=== PATIENT | male | born 1935 | race Caucasian/White ===

== ENCOUNTER → 2016-06-06 | Outpatient (CLI) | payer BC ==
[~2016-06-06] MED LIST: ALLO300T2 PO; AMIO200T4 PO; ATOR-22 PO; AZEL0.15 NAE; CLR10 PO; DOCU-94 PO; DUTA1CAP3 PO; FLUT0.15 NAE; FRS/40 PO; LISI-729 PO; MAGN400T6 PO; METO25TA3 PO; METR1GEL3 EXT; MOME6000; MONT1TAB5 PO; MULTCHW PO; PANT40TA PO; POTA10CA28 PO; TAMS0.4C38 PO; WARF2.5T8 PO
[2016-06-06 12:08] LABS: BASO % 0.2 %; BASO ABS # 0.01 K/uL (0-0.2); COMPLETE YES; EOS % 2.1 %; HEMATOCRIT 42.5 % (42-52); IG% 0.2 %; LYMPH % 31.7 %; LYMPH ABS # 1.67 K/uL (1.2-3.4); MEAN CELL VOLUME 87.6 fL (80-100); MEAN CORPUSCULAR HEMOGLOBIN 30.3 pg (25-34); MEAN CORPUSCULAR HGB CONC 34.6 g/dl (32-36); MEAN PLATELET VOLUME 10.6 fL (7.4-10.4); MONO % 10.1 %; NEUT % 55.7 %; PLATELET COUNT 166 K/uL (130-400); RED BLOOD COUNT 4.85 M/uL (4.7-6.1); WHITE BLOOD COUNT 5.27 K/uL (4.8-10.8)
[2016-06-06 12:43] LABS: BLOOD UREA NITROGEN 18 mg/dl (7-18); GLUCOSE 93 mg/dl (70-99)
[2016-06-06 12:44] LABS: BUN/CREATININE RATIO 13.8 (10-20); CALCIUM 9.3 mg/dl (8.5-10.1); CARBON DIOXIDE 27 mmol/L (21-32); CHLORIDE 107 mmol/L (98-107); POTASSIUM 3.4 mmol/L (3.5-5.1); SODIUM 143 mmol/L (136-145)
== END | disposition home or self-care (01) ==
LOC: C.LAB1850 10:48
PROVIDERS: ATTEND Internal Medicine
DX: I50.22 Chronic systolic (congestive) heart failure (principal)

== ENCOUNTER 2016-09-05 06:33 | Observation (INO) | payer BC ==
[2016-08-27 12:04] LABS: MEAN CELL VOLUME 90.3 fL (80-100); MEAN CORPUSCULAR HEMOGLOBIN 31.3 pg (25-34); MEAN CORPUSCULAR HGB CONC 34.6 g/dl (32-36); MEAN PLATELET VOLUME 10.5 fL (7.4-10.4); PLATELET COUNT 157 K/uL (130-400); RED BLOOD COUNT 4.54 M/uL (4.7-6.1); WHITE BLOOD COUNT 5.79 K/uL (4.8-10.8)
[2016-08-27 12:21] LABS: BLOOD UREA NITROGEN 16 mg/dl (7-18); BUN/CREATININE RATIO 11.7 (10-20); CALCIUM 8.6 mg/dl (8.5-10.1); CARBON DIOXIDE 29 mmol/L (21-32); CHLORIDE 108 mmol/L (98-107); GLUCOSE 84 mg/dl (70-99); POTASSIUM 3.3 mmol/L (3.5-5.1); SODIUM 144 mmol/L (136-145)
[2016-08-27 12:23] LABS: PARTIAL THROMBOPLASTIN RATIO 1.2; PROTHROMBIN TIME (PATIENT) 21.6 SECONDS (9.0-12.0)
[~2016-09-05] VITALS: Ht 175.3 cm; Wt 86.3 kg
[2016-09-05] VITALS (10 sets, daily range): BP systolic 116–154; BP diastolic 61–92; PULSE 50–70; TEMP 36.3–36.8; O2SAT 94–98; Ht 175.3 cm; Wt 86.3 kg
--- NOTE | 2016-09-05 07:26 | History & Physical Bridge Note ---
H&P Re-Evaluation Bridge Note: I have examined the patient, reviewed the History & Physical and in the interval since the performance of the History & Physical I have noted the following changes of clinical significance: INR 2.1 yesterday. No other changes
[2016-09-05] MEDS ORDERED: KEFZOL SPECIAL PROCEDURE STOCK 1 GM ADDVIAL IV ONE (07:27)
--- NOTE | 2016-09-05 07:27 | Procedure Note ---
Pre-Mod Sedation Assessment General Date of Moderate Sedation: Sep 05, 2016. Review Cardiovascular: + irregularly irregular Airway Class: II Pre-Sedation Airway Assessment Oral Cavity: Dentures Able to Visualize Vocal Cords: No Short Thick Neck: No Hx of Sleep Apnea: No Smoking Status: Former Smoker Mallampati Classification: Class II ASA Classification: Class II Procedure Planning Contraindications-for Mod Sed: None Yes Notes The planned sedation has been discussed with the patient and consent obtained. I have identified the patient, determined the appropriateness of sedation and have assessed the patient immediately prior to the procedure. All medicine(s) and interventions are by my order.
[2016-09-05] MEDS ORDERED: BUPIVACAINE 0.5 % 5 MG/1 ML MPF 30ML VIAL ONE (07:46)
[2016-09-05] MEDS ORDERED: LIDOCAINE HCL 1% 20 ML VIAL ONE (07:46)
[2016-09-05] MEDS ORDERED: BACITRACIN 50000 UNIT VIAL ONE (07:46)
[2016-09-05] MEDS ORDERED: MIDAZOLAM HCL 5 MG/ML 1 ML VIAL ONE (08:22)
[2016-09-05] MEDS ORDERED: FENTANYL CITRATE INJ 50 MCG/1 ML 2 ML VIAL ONE (08:23)
[2016-09-05] MEDS ORDERED: BACITRACIN OINT 0.9 GM PKT ONE (09:05)
[2016-09-05] MEDS ORDERED: OXYCODONE/ACETAMINOPHEN 5-325 TAB PO PRN (09:15)
--- NOTE | 2016-09-05 09:15 | Cardiology Procedure Brief Nt ---
Preliminary Cardiology Note Procedure Date Sep 05, 2016. Pre-Procedure Diagnosis CHF Post-Procedure Diagnosis same Procedure(s) Performed IMplant single chamber ICD [employer] Roddy Can Closing Machine Tender(s) none Estimated Blood Loss 10cc Medication(s) Fentanyl, versed Preliminary Findings Successful implant of single chamber ICD Recommendations routine post-op Specimens none Complication(s) None Disposition
[2016-09-05] MEDS ORDERED: IV FLUIDS COMPLETED PRN (09:30)
--- NOTE | 2016-09-05 12:36 | OPERATIVE REPORT ---
DATE OF OPERATION: 09/05/2016 IMPLANTABLE CARDIOVERTER-DEFIBRILLATOR IMPLANTATION REPORT DATE OF SERVICE: 09/05/2016. PROCEDURE PERFORMED: Implantation of single chamber implantable cardioverter-defibrillator. STAFF LUMBER INSPECTOR: Dr. Romero Pereyra. INDICATION: Mr. Alec Grande is a 80-year-old gentleman with a history of ischemic cardiomyopathy. He has a documented ejection fraction less than 35% despite optimal medical therapy. He continues to have Class 2 heart failure symptoms and chronic atrial fibrillation. The patient has an anticipated longevity greater than 1 year and therefore was felt to be a good candidate for implantation of ICD as primary prevention against sudden cardiac . PROCEDURE IN DETAIL: The patient was informed of the risks, benefits, and alternatives to the intended procedure and he agreed to proceed. He was taken to the electrophysiology suite in a fasting state. Preoperative antibiotic had been administered. The patient was monitored electrocardiographic throughout today's procedure and conscious sedation was administered per protocol between 0829 and 0900 hours. The left deltopectoral area was prepped and draped in usual sterile fashion. This area was anesthetized using subcutaneous administration of xylocaine and Marcaine solution. An incision was made dissecting down to the prepectoral fascia using sharp dissection. Electrocautery was also employed for dissection as well as for hemostasis. The pocket was fashioned in the tissues above the pectoral muscles. Subsequent to this the left axillary vein was accessed once using modified Seldinger technique. A sheath was placed over guidewire at this site and used to facilitate passage of the YUE lead to the right ventricular apex under fluoroscopic guidance. Adequate sensing threshold parameters were obtained prior to active fixation of this lead to the endocardial surface. The proximal portion of the lead was then sutured to the prepectoral fascia using nonabsorbable suture. The devised pocket was irrigated with an antibiotic solution. The lead was the attached to the device. The device and lead were then placed in the pocket. The pocket was closed with 3 layer of absorbable sutures. Steri-Strips and sterile dressing were applied. The device was tested noninvasively prior to conclusion of the procedure. The patient tolerated the procedure well. There were no immediate complications. EQUIPMENT USED: 1. New pulse generally spindraw operator MedDropThought, model #XFRD7S1, serial #[id number]. 2. Right ventricular lead spindraw operator Medtronic model #6947M, serial #[id number]. MEASURE DATA: One right ventricular lead, R-waves measured 7.5 millivolts, pacing threshold was 0.75 volts at 0.4 milliseconds with a pacing impedance of 558 ohms. IMPRESSION: Successful implantation of single chamber Implantable cardioverter-defibrillator. PLAN: The patient will be monitored in the [place] overnight. Additional dose of antibiotics will be administered. Chest x-ray and reinterrogation of the device will be performed in the morning. Should all parameters be adequate and the patient be feeling well will be considered for discharge at that time. I attest to the content of the Intraoperative Record and any orders documented therein. Any exceptions are noted below. MTDD
[2016-09-05] MEDS ORDERED: WARFARIN SOD 2.5 MG TAB PO SCH (16:00)
[2016-09-05] MEDS: ACETAMINOPHEN 325 MG TAB PO PRN ×2 (16:26→20:15)
[2016-09-05] MEDS: CEFAZOLIN IV 2,000 MG in DEXTROSE 5% 50ML 50 ML IV SCH ×2 (16:27→23:58)
[2016-09-05] MEDS: POTASSIUM CHLORIDE 20 MEQ TABCR PO SCH (20:16)
[2016-09-05] MEDS ORDERED: TAMSULOSIN HCL 0.4 MG CAP PO SCH (21:00)
[2016-09-05] MEDS ORDERED: MONTELUKAST SOD 10 MG TAB PO SCH (21:00)
[2016-09-06 02:55] VITALS: BP 150/92; PULSE 57; TEMP 36.4; O2SAT 95
[2016-09-06] MEDS: ACETAMINOPHEN 325 MG TAB PO PRN (03:12)
[2016-09-06 05:54] LABS: INR 2.1 (0.9-1.1); PROTHROMBIN TIME (PATIENT) 23.6 SECONDS (9.0-12.0)
--- NOTE | 2016-09-06 06:56 | DIAGNOSTIC IMAGING REPORT ---
CHEST 2 VIEWS ROUTINE CLINICAL HISTORY: EXACT TIME ORDERED Evaluate for pneumothorax and lead placement COMPARISON STUDY: 04/20/2016 FINDINGS: Interval placement of a unipolar cardiac pacemaker/defibrillator. Good lead position. No evidence of pneumothorax. Lungs are clear. IMPRESSION: Good position status post unipolar cardiac pacemaker placement. No evidence pneumothorax. Electronically signed by: Carlos Alberto Uribe M.D. 09/06/2016 6:54 AM Dictated Date/Time: 09/06/2016 6:53 AM
--- NOTE | 2016-09-06 07:37 | Discharge Instructions ---
Discharge Instructions Date of Service Sep 06, 2016. Admission Reason for Admission: Non Ischemic Cardiomyopathy, A Fib Discharge Discharge Diagnosis / Problem: ICD implant Discharge Goals Goal(s): Improve disease control, Therapeutic intervention Activity Recommendations Activity Limitations: resume your previous activity Lifting Limitations: none Exercise/Sports Limitations: none May Resume Sexual Activity: when tolerated Shower/Bathe: keep incision dry Driving or Machine Use: no limitations Keep wound dry and steri-strips in place until f/u next week. No lifting left arm above shoulder or behind neck for 6 weeks . Instructions / Follow-Up Instructions / Follow-Up f/u [facility]iology clinic in 1 week for a wound check Current Hospital Diet Patient's current hospital diet: Low Sodium Diet (2gm Na) Discharge Diet Recommended Diet: Low Sodium Diet (2gm Na) Fluid Restriction: None Procedures Procedures Performed: ICD implant Pending Studies Studies pending at discharge: no Medical Emergencies . Who to Call and When: Medical Emergencies: If at any time you feel your situation is an emergency, please call 911 immediately. . Non-Emergent Contact Non-Emergency issues call your: Remedial Project Manager Call Non-Emergent contact if: you have a fever, your pain is worsening, wound has increased drainage, wound has increased redness, wound has increased pain . . "Provider Documentation" section prepared by Michael Pereyra. VTE Core Measure Inpt VTE Proph given/why not?: Warfarin (Coumadin)
--- NOTE | 2016-09-06 07:39 | Procedure Note ---
Post-Mod Sedation Assessment General Date of Moderate Sedation Sep 06, 2016. Vital Signs: Vital Signs Past 12 Hours Date Time Temp Pulse Resp B/P Pulse Ox O2 Delivery O2 Flow Rate FiO2 09/06/16 04:00 Room Air 09/06/16 02:55 36.4 57 18 150/92 95 Room Air 09/05/16 23:59 Room Air 09/05/16 23:20 36.8 53 16 127/82 95 Room Air 09/05/16 20:00 Room Air Review - Discharge Criteria Vital Signs Stable: Yes Alert/Oriented/Conversant: Yes Returned to Baseline Mental St: Yes Nausea Absent/Minimal: Yes Pain/Discomfort/Absent/Minimal: Yes Normal/Baseline Respirations: Yes Active Bleeding?: No Pt Received D/C Instructions: Yes Prescriptions Given: None Specific Proced. D/C Criteria Voided Prior To Discharge: Yes Discharged Patients Adult Escort/Transportation: Yes
[2016-09-06 08:01] VITALS: BP 139/72; PULSE 66; TEMP 36.5; O2SAT 97
[2016-09-06] MEDS: CEFAZOLIN IV 2,000 MG in DEXTROSE 5% 50ML 50 ML IV SCH (08:26)
[2016-09-06] MEDS: POTASSIUM CHLORIDE 20 MEQ TABCR PO SCH (08:26)
[2016-09-06] MEDS ORDERED: AMIODARONE 200 MG TAB PO SCH (09:00)
[2016-09-06] MEDS ORDERED: MAGNESIUM OXIDE 400 MG TAB PO SCH (09:00)
[2016-09-06] MEDS ORDERED: ATORVASTATIN 20 MG TAB PO SCH (09:00)
[2016-09-06] MEDS ORDERED: PANTOprazole SOD 40 MG TAB PO SCH (09:00)
[2016-09-06] MEDS ORDERED: FUROSEMIDE 40 MG TAB PO SCH (09:00)
[2016-09-06] MEDS ORDERED: LISINOPRIL 5 MG TAB PO SCH (09:00)
[2016-09-06] MEDS ORDERED: ALLOPURINOL 300 MG TAB PO SCH (09:00)
[2016-09-06] MEDS ORDERED: METOPROLOL SUCC 25MG EXT REL TAB PO SCH (09:00)
[2016-09-06 09:05] VITALS: BP 139/72; PULSE 66; TEMP 36.5; O2SAT 97
--- NOTE | 2016-09-06 11:19 | Discharge Summary ---
Discharge Summary Admission Date: Sep 05, 2016 at 09:13 Discharge Date: Sep 06, 2016 Discharge Disposition: Home Primary Diagnosis: CHF Secondary Diagnoses/Problems: Medical Problems: (1) CHF (congestive heart failure) Status: Acute (2) Exertional dyspnea Status: Acute (3) Hypokalemia Status: Acute Procedures: Medtronic ICD implant Discharge Instructions Last Recorded Wt (Kilograms): 86.300 Activity Recommendations: limitations as noted below, shower/bathe limit Return to School/Work: no limitations Diet At Discharge: resume previous diet, low sodium Allergies: Coded Allergies: Codeine (Verified Adverse Reaction, Unknown, N/V, 04/20/16) Home Health Services: none Additional Instructions: ACTIVITY RECOMMENDATIONS: * Do not raise affected arm over head for 2 weeks. SPECIAL CARE INSTRUCTIONS: * If bleeding occurs, apply direct pressure to area for 5 minutes. * Call your doctor if you have severe pain, fever, drainage or bleeding at site. * Keep dressing on and dry for 48 hours then remove. * Keep any scheduled doctor's appointment. * Implant Card - hand held device with website information given. SKIN IRRITATION: * You may experience some redness and/or swelling in the area where radiation was administered. If any skin irritation occurs, please contact your family physician. FOLLOW UP VISIT: Keep any scheduled doctor appointments. Special Care: Call your doctor if: * Temperature above 101 degrees * Pain not relieved by pain medicine ordered * There is increased drainage or redness from any incision * You have any unanswered questions or concerns. Avoid all tobacco products. If you need help to stop smoking, call [place]'s FREE QUITLINE at . This is a free call. Admission HPI Cardiomyopathy Admission Physical Exam Incision with a moderate amount of ecchymosis and perhaps some mild swelling. Normal device function. Chest x-ray did not demonstrate any evidence of pneumothorax. There was stable lead position. Head: normocephalic Lungs: Respiratory effort: no dyspnea Cardiovascular: Heart Auscultation: no rubs, irregular rate rhythm Hospital Course Patient admitted and underwent implantation of single-chamber Medtronic ICD on 09/05/2016. Uncomplicated hospital stay with normal device function the following day. No complications Total time spent on discharge = This includes examination of the patient, discharge planning, medication reconciliation, and communication with other providers. 30 minutes
== END 2016-09-06 10:35 | disposition home or self-care (01) ==
LOC: C.ACU 06:33 → C.2E 09:13
PROVIDERS: ADMIT Internal Medicine Clinical Cardiac Electrophysiology; ATTEND Internal Medicine Clinical Cardiac Electrophysiology
DX: I50.9 Heart failure, unspecified (principal); E87.6 Hypokalemia; I25.5 Ischemic cardiomyopathy; I48.91 Unspecified atrial fibrillation; I34.0 Nonrheumatic mitral (valve) insufficiency; N40.0 Benign prostatic hyperplasia without lower urinary tract symptoms; G47.31 Primary central sleep apnea; F32.9 Major depressive disorder, single episode, unspecified; E78.00 Pure hypercholesterolemia, unspecified; Z87.440 Personal history of urinary (tract) infections; Z84.1 Family history of disorders of kidney and ureter; Z83.3 Family history of diabetes mellitus; Z82.49 Family history of ischemic heart disease and other diseases of the circulatory system

== ENCOUNTER → 2016-11-12 | Outpatient (CLI) | payer BC ==
[~2016-11-12] VITALS: Ht 175.3 cm; Wt 86.9 kg
[2016-11-12 14:33] VITALS: BP 119/62; PULSE 38; Ht 175.3 cm; Wt 86.9 kg
== END | disposition home or self-care (01) ==
LOC: C.NEUR 13:49
PROVIDERS: ATTEND Physician Assistant Medical
DX: G47.30 Sleep apnea, unspecified (principal); I50.9 Heart failure, unspecified; I42.8 Other cardiomyopathies

== ENCOUNTER → 2016-12-06 | Outpatient (CLI) | payer BC | END | disposition home or self-care (01) | LOC: C.LAB1850 09:46 | PROVIDERS: ATTEND Internal Medicine Clinical Cardiac Electrophysiology | DX: I48.91 Unspecified atrial fibrillation (principal) ==

== ENCOUNTER → 2017-01-23 | Outpatient (CLI) | payer BC ==
[2017-01-23 12:33] LABS: BASO % 0.2 %; BASO ABS # 0.01 K/uL (0-0.2); COMPLETE YES; EOS % 1.6 %; HEMATOCRIT 45.7 % (42-52); IG% 0.3 %; LYMPH % 21.5 %; LYMPH ABS # 1.36 K/uL (1.2-3.4); MEAN CELL VOLUME 91.6 fL (80-100); MEAN CORPUSCULAR HEMOGLOBIN 31.9 pg (25-34); MEAN CORPUSCULAR HGB CONC 34.8 g/dl (32-36); MEAN PLATELET VOLUME 10.5 fL (7.4-10.4); MONO % 11.2 %; NEUT % 65.2 %; PLATELET COUNT 157 K/uL (130-400); RED BLOOD COUNT 4.99 M/uL (4.7-6.1); WHITE BLOOD COUNT 6.32 K/uL (4.8-10.8)
[2017-01-23 12:49] LABS: ALT/SGPT 80 U/L (12-78); AST/SGOT 48 U/L (15-37); BLOOD UREA NITROGEN 19 mg/dl (7-18); BUN/CREATININE RATIO 11.1 (10-20); CALCIUM 8.9 mg/dl (8.5-10.1); CARBON DIOXIDE 29 mmol/L (21-32); CHLORIDE 107 mmol/L (98-107); CHOLESTEROL 138 mg/dl (0-200); GLUCOSE 98 mg/dl (70-99); MAGNESIUM 2.2 mg/dl (1.8-2.4); SODIUM 142 mmol/L (136-145); TRIGLYCERIDES 103 mg/dl (0-150); URIC ACID 4.4 mg/dl (2.6-7.2); VERY LOW DENSITY LIPOPROT CALC 21 mg/dl
[2017-01-23 12:59] LABS: ESTIMATED AVERAGE GLUCOSE 97 mg/dl; HA1C FLAG Normal (Normal)
[2017-01-23 13:02] LABS: URINE APPEARANCE CLEAR (CLEAR); URINE BILIRUBIN NEG (NEG); URINE COLOR DK YELLOW; URINE EPITHELIAL CELL AUTO 20-30 /lpf (0-5); URINE NITRITE NEG (NEG); URINE PH 5.5 (4.5-7.5); URINE SPECIFIC GRAVITY 1.022 (1.000-1.030); UROBILINOGEN NEG (NEG)
[2017-01-23 13:13] LABS: MANUAL MICROSCOPIC REQUIRED? NO; REVIEW REQ? NO
[2017-01-23 13:15] LABS: CHOLESTEROL/HDL RATIO 3.5; HDL CHOLESTEROL 39 mg/dl; LDL CHOLESTEROL CALCULATED 78 mg/dl
--- NOTE | 2017-01-31 14:30 | CODING QUERY MEDICAL NECESSITY ---
SUPPORTING DIAGNOSIS NEEDED A supporting diagnosis is required for the test/procedure performed on this patient in order for us to be reimbursed by the patient's insurance. Please provide a supporting diagnosis for the following test/procedure listed below next to the test name along with your signature. *If there is no additional diagnosis for this patient that would support the following test/procedure please document that below next to the test/procedure. Test(s)/Procedure(s) that require a supporting diagnosis: * HEMOGLOBIN A1C DIAGNOSIS: Provider Signature: Date: Thank you Tyar Duarte [employer] Information [employer] Once completed, please kindly fax back to [phone] For questions please call [phone]
== END | disposition home or self-care (01) ==
LOC: C.LAB1850 10:11
PROVIDERS: ATTEND Internal Medicine
DX: E78.00 Pure hypercholesterolemia, unspecified (principal); E74.39 Other disorders of intestinal carbohydrate absorption

== ENCOUNTER → 2017-02-04 | Outpatient (CLI) | payer BC ==
--- NOTE | 2017-02-04 13:02 | DIAGNOSTIC IMAGING REPORT ---
ULTRASOUND KIDNEYS AND BLADDER CLINICAL HISTORY: Chronic renal insufficiency. COMPARISON STUDY: Abdominal CT dated 03/06/2015. TECHNIQUE: Real-time, grayscale, and color flow sonography of the kidneys and bladder is performed. Images are reviewed in the transverse and longitudinal planes. FINDINGS: Kidneys: The kidneys are atrophic. Cortical scarring is noted in the right upper pole. The right kidney measures 10.4 x 5.2 x 5.0 cm and the left kidney measures 10.9 x 5.9 x 4.9 cm. There is no hydronephrosis. No shadowing renal calculi are identified. A 5.1 cm exophytic cyst is again seen arising from the interpolar right kidney. Additional smaller cysts are seen bilaterally. There is no sonographic evidence of solid mass lesion. No perinephric fluid is identified. Bladder: The bladder is decompressed. Ureteral jets were seen. The prostate gland is enlarged. IMPRESSION: 1. The kidneys are atrophic and without hydronephrosis. 2. Bilateral renal cysts. 3. Prostatomegaly. The bladder was decompressed and grossly unremarkable Electronically signed by: German Lacy M.D. 02/04/2017 12:20 PM Dictated Date/Time: 02/04/2017 12:18 PM
--- NOTE | 2017-02-04 13:03 | DIAGNOSTIC IMAGING REPORT ---
DUPLEX RENAL ARTERY ultrasound CLINICAL HISTORY: N18.9 Chronic renal insufficiency [id number] COMPARISON STUDY: None. FINDINGS: The proximal to mid right renal artery was obscured by overlying bowel gas. The distal right renal artery demonstrates a peak systolic velocity of 31 cm/s. The left renal artery demonstrates a peak systolic velocity of 63 cm/s. Slightly elevated resistive indices within the left renal arcuate arteries of 0.81. Normal right renal arcuate artery resistive indices. Bilateral renal veins are patent. IMPRESSION: No evidence for renal artery stenosis. Of note, the proximal to mid right renal artery was obscured by overlying bowel gas. Electronically signed by: Justus Garza M.D. 02/04/2017 12:44 PM Dictated Date/Time: 02/04/2017 12:41 PM
== END | disposition home or self-care (01) ==
LOC: C.ULTR 10:45
PROVIDERS: ATTEND Internal Medicine
DX: N18.9 Chronic kidney disease, unspecified (principal); N28.1 Cyst of kidney, acquired

== ENCOUNTER → 2017-05-13 | Outpatient (CLI) | payer BC ==
[~2017-05-13] VITALS: Ht 177.8 cm; Wt 77.2 kg
[2017-05-13 13:52] VITALS: BP 135/71; PULSE 41; BMI 29.8
[2017-05-13 14:17] VITALS: BP 177/92; PULSE 63; Ht 177.8 cm; Wt 77.2 kg
== END | disposition home or self-care (01) ==
LOC: C.NEUR 13:20
PROVIDERS: ATTEND Internal Medicine Pulmonary Disease
DX: G47.31 Primary central sleep apnea (principal); G47.30 Sleep apnea, unspecified; I69.959 Hemiplegia and hemiparesis following unspecified cerebrovascular disease affecting unspecified side

== ENCOUNTER → 2017-08-07 | Outpatient (CLI) | payer BC ==
[2017-08-07 10:02] LABS: BASO % 0.4 %; EOS % 2.2 %; HEMOGLOBIN 16.5 g/dL (14.0-18.0); LYMPH % 30.3 %; MEAN CELL VOLUME 91.3 fL (80-100); MEAN CORPUSCULAR HGB CONC 35.1 g/dl (32-36); MEAN PLATELET VOLUME 10.2 fL (7.4-10.4); MONO % 12.5 %; NEUT % 53.9 %; PLATELET COUNT 154 K/uL (130-400); RED CELL DISTRIBUTION WIDTH SD 46.6 fL (36.4-46.3); WHITE BLOOD COUNT 5.44 K/uL (4.8-10.8)
[2017-08-07 10:03] LABS: BASO ABS # 0.02 K/uL (0-0.2); EOS ABS # 0.12 K/uL (0-0.5); IG# 0.04 K/uL (0.00-0.02); LYMPH ABS # 1.65 K/uL (1.2-3.4); MONO ABS # 0.68 K/uL (0.11-0.59); NEUT ABS # 2.93 K/uL (1.4-6.5)
[2017-08-07 10:29] LABS: ALT/SGPT 23 U/L (12-78); AST/SGOT 18 U/L (15-37); BLOOD UREA NITROGEN 16 mg/dl (7-18); CALCIUM 8.9 mg/dl (8.5-10.1); CARBON DIOXIDE 28 mmol/L (21-32); CHOLESTEROL 104 mg/dl (0-200); CREATININE 1.41 mg/dl (0.60-1.40); GLUCOSE 92 mg/dl (70-99); POTASSIUM 3.6 mmol/L (3.5-5.1); SODIUM 140 mmol/L (136-145)
[2017-08-07 10:40] LABS: LDL CHOLESTEROL CALCULATED 54 mg/dl
[2017-08-07 11:15] LABS: HEMOGLOBIN A1C 5.1 % (4.5-5.6)
== END | disposition home or self-care (01) ==
LOC: C.LAB1850 09:23
PROVIDERS: ATTEND Internal Medicine
DX: E78.00 Pure hypercholesterolemia, unspecified (principal)

== ENCOUNTER 2022-08-18 14:28 | Inpatient (IN) ==
[2022-08-18] MEDS ORDERED: SODIUM CHLORIDE 0.9% 1000ML 1,000 ML IV SCH (14:45)
--- NOTE | 2022-08-18 14:56 | Emergency Department Note ---
Impression & Plan Hypotension, Confusion, Generalized weakness, Anemia, JENNI (acute kidney injury), Hyponatremia, Sacral wound, Elevated troponin ED Provider Note ED Provider Note NAME: BELEN INMAN AGE:86 SEX: Male : 1935 ARRIVES VIA: EMS INFORMANT: Patient ED PROVIDER(s): Erendira Turner DO CHIEF COMPLAINT: Hypotension, weakness HPI: This is an 86-year-old male who presents emergency department via EMS due to concern for worsening hypotension, weakness, and confusion. Patient is at a personal care facility. Patient denies any pain, states he is felt weak and tired, states he has not had a normal appetite recently. He denies abdominal pain, chest pain, headaches, trouble breathing, nausea or vomiting. 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 Patient noted to be profoundly hypotensive on arrival and was immediately brought back to room A1. PAST MEDICAL HISTORY:See Below PAST SURGICAL HISTORY:See Below FAMILY HISTORY:See Below SOCIAL HISTORY:See Below HOME MEDICATIONS:See Below ALLERGIES:See Below VITALS:See Below PHYSICAL EXAMINATION: GENERAL: alert, unwell appearing, well nourished, no distress, non-toxic EYE EXAM: normal conjunctiva, PERRL and EOM's grossly intact OROPHARYNX: no exudate, no erythema, lips, buccal mucosa, and tongue normal and mucous membranes are dry NECK: supple, no nuchal rigidity, no adenopathy, non-tender LUNGS: Clear to auscultation. Normal chest wall mechanics, no w/r/r HEART: no murmurs, S1 normal and S2 normal ABDOMEN: abdomen soft, non-tender, normo-active bowel sounds, no masses, no rebound or guarding. BACK: Back is symmetrical on inspection and there is no deformity, no midline tenderness, no CVA tenderness. 2 small areas to the left mid back noted and appear to be superficial pressure wounds, these were covered with Xeroform and dry gauze RECTAL: Evidence of evolving sacral decubitus ulcer noted when rolling the patient to perform rectal exam, brown stool noted in rectal vault, no obvious hemorrhoids or fissures, heme-negative on guaiac testing SKIN: no rashes, petechiae, orbruising UPPER EXTREMITIES: upper extremities are grossly normal. Left hand in a brace due to prior stroke and left-sided hemiplegia. FROM RUE, nml pulses b/l. LOWER EXTREMITIES: No pitting edema. FROM RLE, weakness of the left lower extremity chronic from prior stroke, nml pulses b/l. NEURO EXAM: Pleasantly confused, cranial nerves II-XII grossly intact, normal speech, no facial droop,nogross weakness of arms, no gross weakness of legs. Gross sensation intact. No ataxia. Vital Signs: reviewed and remarkable Differential Diagnosis: Differential diagnosis includes etiologies such as sepsis, UTI, pneumonia, GI bleed, anemia, electrolyte abnormalities, ACS, dissection, ICH, toxidrome, medication adr, as well as others were entertained. MEDICAL DECISION MAKING: This is an 86-year-old male presents via EMS due to concern for increased weakness and significant hypotension noted today by staff at the [facility]. Labs drawn and sent, IV established, EKG performed interpreted by me at bedside, chest x-ray performed and interpreted by me at bedside, IV fluids started, patient placed on telemetry. A second IV was established additionally for additional fluids and in consideration of possible need for blood products or pressors. Patient was awake and able to answer simple questions throughout. Patient's son updated initially and several times throughout his stay in the emergency room. Patient's labs with significant anemia and in the setting of his apparent clinical dehydration I expect is in actuality far more anemic than initial H&H reveal. JENNI and hyponatremia were also noted. Patient with leukocytosis and elevated procalcitonin. He was given empiric IV cefepime. Patient received greater than 30 mL/KG of IV fluids while in the emergency room prior to being started on Levophed. Blood was added due to concern for significant anemia and ongoing hypotension. Patient's hospita list updated as with son at bedside several times. Patient with improved blood pressure while on Levophed. Patient's urine suggestive of likely infection. CT head unremarkable. Chest x-ray without obvious infiltrate or edema. Elevated troponin likely secondary to hypotension. Consultation(s): 1630: Discussed with Dr. Mora. 1720: Dr. Mora at bedside. We again discussed possible need for blood transfusion with patient and his son. Son in agreement, consent form signed. ER Treatment Provided: See below 1450: Discussed with son, German, who is now at bedside. He states his father has been declining in the last 8 weeks. He did have a fall approximately 9 months ago which resulted in a subdural hematoma that required evacuation done at [place]. He states he is still taking blood thinners. 1502: Patient still hypotensive although mildly improved. He is awake and answering questions. Son at bedside. Second IV established. 1545: Patient still hypotensive although still responds appropriately, IV fluids still running. 1645: CHUCHO performed with nurse uniform room attendant Consuelo and Maynor at bedside. Sacral decubitus ulcer noted as well as other evolving pressure sores on the patient's back. Heme-negative stool. 1820: Patient's blood pressure downtrending again. Discussed with hospitalist given blood ordered from blood bank has not yet arrived at bedside for transfusion. We will begin Levophed until arrival of blood. Maintenance IV fluids added. Repeat H&H added by the hospitalist. 1854: Updated hospitalist Dr. Landaverde. 1934: Patient underwent CT head, has returned, blood pressure improved with Levophed drip. Diagnostics Interpreted By Me: -ECG: Atrial fibrillation at 89, leftward axis, normal QRS and QTc, nonspecific ST/T wave changes, PVCs noted, low voltage, apparent baseline with artifact noted -Cardiac Monitoring: An order was placed for continuous cardiac monitoring. The monitor shows a rate of 96 with a.fib rhythm. -Laboratory studies: As stated above and show below. -Imaging studies: X-ray Chest: A single view study of the chest was reviewed and was negative for cardiomegaly, focal infiltrate, effusion, pulmonary edema, or wide mediastinum. Pacemaker noted. Triage Nursing Note Reviewed Prior/Outside Records Reviewed -group home records including medication list Procedures: [] Critical Care: Critical care of 62 min performed to assess and manage high likelihood of life-threatening hypotension, involving labs and imaging performed with assessment to evaluate hypotension, sepsis, anemia diagnosis with frequent reassessment. This time includes bedside time, treatment discussions with patient/family/consultants, documentation time and excludes procedure time. Past Med/Surg History Medical History BPH w urinary obs/LUTS Chronic systolic (congestive) heart failure Complex sleep apnea syndrome Frequent falls History of CVA (cerebrovascular accident) Hypercholesterolemia Hypertension Mitral regurgitation Permanent atrial fibrillation Pseudomonas septicemia Pseudomonas urinary tract infection Right cataract Stage 3a chronic kidney disease Surgical History History of ankle surgery History of dental surgery Status post implantation of automatic cardioverter/defibrillator (AICD) Family History Uncle Diabetes Father Stroke Nephrolithiasis Grandfather (Paternal) Stroke Other Hypertension Myocardial infarction Denies family history of Ovarian cancer Prostate cancer Breast cancer Lung cancer Colorectal cancer Social History Smoking Status: Never smoker Tobacco Type: Cigarettes Second Hand Exposure: No; Hx Alcohol Use: Yes (At most once a week ) Alcohol type: beer Alcohol Intake Frequency: Monthly or Less Hx Substance Use: No Preferred Language: Azerbaijani Visual Impairment: Limited Hearing Ability: Normal marital status: Current Living Situation: Spouse current occupational status: retired How many Children do You have: 3 Feels Safe at Home: Yes Childhood Exposure to Second-Hand Smoke: No caffeine: Yes Dental Care, Regularly: Yes Physical Activity Frequency: Does not Exercise Seatbelt Use: always Sunscreen Use: Yes Assistive Devices: Hospital Bed and Wheelchair Allergies Allergies Allergy/AdvReac Type Severity Reaction Status Date / Time codeine AdvReac Unknown N/V Verified 08/18/22 17:24 Home Meds Home Medications Medication Instructions Recorded Confirmed acetaminophen 325 mg tablet 650 mg PO Q6 PRN Pain 08/18/22 08/18/22 (Tylenol) allopurinol 300 mg tablet 300 mg PO DAILY 08/18/22 08/18/22 atorvastatin 20 mg tablet 20 mg PO DAILY 08/18/22 08/18/22 azelastine 137 mcg (0.1 %) nasal 2 spray intranasal BID 08/18/22 08/18/22 spray aerosol duloxetine 30 mg capsule,delayed 30 mg PO DAILY 08/18/22 08/18/22 release dutasteride 0.5 mg capsule 0.5 mg PO DAILY 08/18/22 08/18/22 fluticasone propionate 50 2 spray intranasal DAILY 08/18/22 08/18/22 mcg/actuation nasal spray,suspension furosemide 20 mg tablet 20 mg PO QAM 08/18/22 08/18/22 lisinopril 2.5 mg tablet 2.5 mg PO DAILY 08/18/22 08/18/22 loratadine 10 mg tablet 10 mg PO HS 08/18/22 08/18/22 magnesium oxide 400 mg (241.3 mg 400 mg PO DAILY 08/18/22 08/18/22 magnesium) tablet melatonin 10 mg tablet 10 mg PO HS PRN Sleep 08/18/22 08/18/22 metoprolol succinate 25 mg 25 mg PO DAILY 08/18/22 08/18/22 tablet,extended release 24 hr montelukast 10 mg tablet 10 mg PO QPM 08/18/22 08/18/22 iyefiyfo-txz-uqrie acid 0.4 1 tab PO DAILY 08/18/22 08/18/22 mg-lycopene 300 mcg-lutein 250 mcg tablet (Centrum Silver) neomycin-bacitracn Zn-polymyxn 3.5 1 applic topical DIRECTED PRN 08/18/22 08/18/22 mg-400 unit-5,000 unit top oint .wounds pkt (Triple Antibiotic) pantoprazole 20 mg tablet,delayed 20 mg PO DAILY 08/18/22 08/18/22 release potassium chloride 10 mEq 20 meq PO BID 08/18/22 08/18/22 capsule,extended release rivaroxaban 15 mg tablet (Xarelto) 15 mg PO QPM 08/18/22 08/18/22 tamsulosin 0.4 mg capsule 0.4 mg PO HS 08/18/22 08/18/22 Results & Data (ED) Vital Signs Vital Signs - 24 hr 08/18/22 15:06 08/18/22 15:15 08/18/22 14:38 Temperature 36.8 C Temperature Source Oral Pulse Rate 74 Pulse Rate [Apical] 68 Pulse Rhythm [Apical] Pulse Strength [Apical] Respiratory Rate 20 26 H Respiratory Effort / Characteristics Non-Labored Non-Labored Spontaneous Respiratory Depth Normal Normal Respiratory Pattern Tachypnea Blood Pressure 70/43 L Blood Pressure [Right Arm] 81/47 L Blood Pressure Mean 52 Blood Pressure Mean [Right Arm] 58 Pulse Oximetry 100 100 Oxygen Delivery Method Room Air Room Air Room Air Sepsis Recent Fever Within 48 Hours No Sepsis New/Unexplained Change in Mental Status Yes Sepsis Action Taken by Nursing Physician Notified 08/18/22 15:20 08/18/22 15:30 08/18/22 15:45 Temperature Temperature Source Pulse Rate Pulse Rate [Apical] 80 92 H Pulse Rhythm [Apical] Pulse Strength [Apical] Respiratory Rate 28 H 25 H Respiratory Effort / Characteristics Non-Labored Spontaneous Non-Labored Spontaneous Respiratory Depth Normal Normal Respiratory Pattern Blood Pressure Blood Pressure [Right Arm] 82/61 L 90/53 L Blood Pressure Mean Blood Pressure Mean [Right Arm] 68 65 Pulse Oximetry 100 100 Oxygen Delivery Method Room Air Room Air Room Air Sepsis Recent Fever Within 48 Hours Sepsis New/Unexplained Change in Mental Status Sepsis Action Taken by Nursing 08/18/22 16:00 08/18/22 16:15 08/18/22 16:30 Temperature Temperature Source Pulse Rate Pulse Rate [Apical] 83 72 86 Pulse Rhythm [Apical] Pulse Strength [Apical] Respiratory Rate 25 H 27 H 30 H Respiratory Effort / Characteristics Non-Labored Spontaneous Non-Labored Spontaneous Non-Labored Spontaneous Respiratory Depth Normal Normal Normal Respiratory Pattern Regular Blood Pressure Blood Pressure [Right Arm] 83/54 L 78/50 L 85/59 L Blood Pressure Mean Blood Pressure Mean [Right Arm] 63 59 67 Pulse Oximetry 99 98 100 Oxygen Delivery Method Room Air Room Air Room Air Sepsis Recent Fever Within 48 Hours Sepsis New/Unexplained Change in Mental Status Sepsis Action Taken by Nursing 08/18/22 16:47 08/18/22 16:56 08/18/22 17:02 Temperature Temperature Source Pulse Rate 92 H Pulse Rate [Apical] 91 H 85 Pulse Rhythm [Apical] Regular Pulse Strength [Apical] Respiratory Rate 26 H 29 H Respiratory Effort / Characteristics Non-Labored Spontaneous Non-Labored Spontaneous Respiratory Depth Respiratory Pattern Blood Pressure Blood Pressure [Right Arm] 82/51 L 81/56 L Blood Pressure Mean Blood Pressure Mean [Right Arm] 61 64 Pulse Oximetry 100 100 Oxygen Delivery Method Room Air Room Air Sepsis Recent Fever Within 48 Hours Sepsis New/Unexplained Change in Mental Status Sepsis Action Taken by Nursing 08/18/22 17:45 08/18/22 17:15 08/18/22 17:30 Temperature Temperature Source Pulse Rate Pulse Rate [Apical] 94 H 82 90 Pulse Rhythm [Apical] Pulse Strength [Apical] Respiratory Rate 23 24 23 Respiratory Effort / Characteristics Non-Labored Spontaneous Non-Labored Spontaneous Non-Labored Spontaneous Respiratory Depth Normal Respiratory Pattern Regular Blood Pressure Blood Pressure [Right Arm] 80/51 L 86/59 L 87/56 L Blood Pressure Mean Blood Pressure Mean [Right Arm] 60 68 66 Pulse Oximetry 100 100 100 Oxygen Delivery Method Room Air Room Air Room Air Sepsis Recent Fever Within 48 Hours Sepsis New/Unexplained Change in Mental Status Sepsis Action Taken by Nursing 08/18/22 18:00 08/18/22 18:15 08/18/22 18:30 Temperature Temperature Source Pulse Rate Pulse Rate [Apical] 85 91 H 85 Pulse Rhythm [Apical] Regular Regular Irregular Pulse Strength [Apical] Normal Respiratory Rate 22 20 27 H Respiratory Effort / Characteristics Non-Labored Spontaneous Non-Labored Spontaneous Non-Labored Spontaneous Respiratory Depth Normal Normal Respiratory Pattern Regular Regular Blood Pressure Blood Pressure [Right Arm] 82/54 L 73/54 L 86/51 L Blood Pressure Mean Blood Pressure Mean [Right Arm] 63 60 62 Pulse Oximetry 100 100 100 Oxygen Delivery Method Room Air Room Air Room Air Sepsis Recent Fever Within 48 Hours Sepsis New/Unexplained Change in Mental Status Sepsis Action Taken by Nursing 08/18/22 18:40 08/18/22 18:45 08/18/22 19:00 Temperature Temperature Source Pulse Rate Pulse Rate [Apical] 84 92 H 84 Pulse Rhythm [Apical] Regular Regular Pulse Strength [Apical] Normal Respiratory Rate 25 H 26 H 23 Respiratory Effort / Characteristics Non-Labored Spontaneous Non-Labored Spontaneous Non-Labored Spontaneous Respiratory Depth Normal Respiratory Pattern Regular Regular Blood Pressure Blood Pressure [Right Arm] 96/57 L 96/58 L 92/63 L Blood Pressure Mean Blood Pressure Mean [Right Arm] 70 70 72 Pulse Oximetry 100 100 100 Oxygen Delivery Method Room Air Room Air Room Air Sepsis Recent Fever Within 48 Hours Sepsis New/Unexplained Change in Mental Status Sepsis Action Taken by Nursing 08/18/22 19:25 08/18/22 19:31 08/18/22 19:45 Temperature 36.6 C Temperature Source Oral Pulse Rate Pulse Rate [Apical] 89 85 96 H Pulse Rhythm [Apical] Pulse Strength [Apical] Respiratory Rate 24 25 H 24 Respiratory Effort / Characteristics Non-Labored Spontaneous Non-Labored Spontaneous Non-Labored Spontaneous Respiratory Depth Normal Respiratory Pattern Regular Regular Blood Pressure Blood Pressure [Right Arm] 88/57 L 87/52 L 95/52 L Blood Pressure Mean Blood Pressure Mean [Right Arm] 67 63 66 Pulse Oximetry 96 98 97 Oxygen Delivery Method Room Air Room Air Sepsis Recent Fever Within 48 Hours Sepsis New/Unexplained Change in Mental Status Sepsis Action Taken by Nursing 08/18/22 20:00 08/18/22 20:01 Temperature 36.6 C 36.6 C Temperature Source Oral Oral Pulse Rate 85 Pulse Rate [Apical] 100 H Pulse Rhythm [Apical] Pulse Strength [Apical] Respiratory Rate 24 24 Respiratory Effort / Characteristics Non-Labored Spontaneous Respiratory Depth Respiratory Pattern Regular Blood Pressure 94/61 L Blood Pressure [Right Arm] 94/61 L Blood Pressure Mean 72 Blood Pressure Mean [Right Arm] 72 Pulse Oximetry 98 98 Oxygen Delivery Method Room Air Sepsis Recent Fever Within 48 Hours Sepsis New/Unexplained Change in Mental Status Sepsis Action Taken by Nursing Laboratory Data 08/18/22 14:40 08/18/22 14:40 Lab Results 08/18/22 08/18/22 08/18/22 Range/Units 14:40 14:40 14:40 WBC 14.03 H (4.8-10.8) K/ul RBC 2.54 L (4.70-6.10) M/uL Hgb 7.8 L (14.0-18.0) g/dl POC Hgb (14.0-18.0) g/dl Hct 23.0 L (42.0-52.0) % POC Hct (42-52) % MCV 90.6 (80.0-100.0) fL MCH 30.7 (25.0-34.0) pg MCHC 33.9 (32.0-36.0) g/dL RDW Std Deviation 54.0 H (36.4-46.3) fL RDW Coeff of [place] 16.3 H (11.5-14.5) % Plt Count 111 L (130-400) K/uL MPV 10.0 (9.4-12.4) fL Immature Gran % (Auto) 0.6 % Neut % (Auto) 82.4 % Lymph % (Auto) 6.8 % [place] % (Auto) 10.0 % Eos % (Auto) 0.1 % Baso % (Auto) 0.1 % Reticulocyte % (Auto) 1.9 (0.5-2.0) % Neut # (Auto) 11.57 H (1.40-6.50) K/uL Lymph # (Auto) 0.95 L (1.2-3.4) K/uL [place] # (Auto) 1.40 H (0.11-0.59) K/uL Eos # (Auto) 0.01 (0-0.50) K/uL Baso # (Auto) 0.01 (0-0.2) K/uL Reticulocyte # 0.05 (0.02-0.10) 10^6/uL Immature Gran # (Auto) 0.09 (0.01-0.20) K/uL Platelet Estimate Decreased L (Normal) Ovalocytes 1+ Echinocytes 2+ POC Sodium (135-144) mmol/L Sodium 126 L (136-145) mmol/L POC Potassium (3.3-5.0) mmol/L Potassium 4.6 (3.5-5.1) mmol/L POC Chloride (101-112) mmol/L Chloride 100 (98-107) mmol/L Carbon Dioxide 19 L (21-32) mmol/L POC Total CO2 (24-31) mmol/L Anion Gap 7 (3-11) POC Anion Gap (16-25) mmol/L POC BUN (7-18) mg/dl BUN 24 H (6-23) mg/dl Creatinine 1.67 H (0.6-1.4) mg/dl POC Creatinine (0.6-1.3) mg/dl Est Cr Clr Drug Dosing 30.6 ml/min Est GFR ( Amer) 42.9 ml/min Est GFR (Non-Af Amer) 37.0 ml/min BUN/Creatinine Ratio 14.4 (10-20) Glucose 165 H (70-99(Fasting)) mg/dl POC Glucose (other) (70-99) mg/dl Lactate (0.4-2.0) mmol/L Calcium 8.5 (8.5-10.1) mg/dl POC Ioniz Calcium [place] (1.12-1.32) mmol/l Magnesium 2.0 (1.7-2.4) mg/dl Total Bilirubin 0.9 (0.2-1.0) mg/dl Direct Bilirubin 0.4 H (0-0.2) mg/dl AST 28 (13-39) U/L ALT 25 (7-52) U/L Alkaline Phosphatase 83 (34-104) U/L Troponin I High Sens 22.7 H (0-20) pg/ml C-Reactive Protein (0-0.5) mg/dl Total Protein 4.6 L (6.0-8.3) gm/dl Albumin 2.3 L (3.4-5.0) gm/dl Procalcitonin 0.57 H (0-0.5) ng/ml Urine Color Urine Appearance (Clear) Urine pH (4.5-7.5) Ur Specific [place] (1.000-1.030) Urine Protein (Negative) Urine Glucose (UA) (Negative) Urine Ketones (Negative) Urine Blood (Negative) Urine Nitrite (Negative) Urine Bilirubin (Negative) Urine Urobilinogen (Negative) Ur Leukocyte Esterase (Negative) Urine WBC (Auto) (0-5) /hpf Urine RBC (Auto) (0-4) /hpf U Hyaline Cast (Auto) (0-5) /lpf U Epithel Cells (Auto) (0-5) /lpf Urine Bacteria (Auto) (Negative) Urine Yeast SARS-CoV-2 (PCR) (Negative) Influenza Type A (PCR) (Neg) Influenza Type B (PCR) (Neg) RSV (RT-PCR) (Neg) Blood Type Blood Type Recheck Antibody Screen Crossmatch 08/18/22 08/18/22 08/18/22 Range/Units 14:40 15:07 15:21 WBC (4.8-10.8) K/ul RBC (4.70-6.10) M/uL Hgb (14.0-18.0) g/dl POC Hgb 8.8 L (14.0-18.0) g/dl Hct (42.0-52.0) % POC Hct 26 L (42-52) % MCV (80.0-100.0) fL MCH (25.0-34.0) pg MCHC (32.0-36.0) g/dL RDW Std Deviation (36.4-46.3) fL RDW Coeff of [place] (11.5-14.5) % Plt Count (130-400) K/uL MPV (9.4-12.4) fL Immature Gran % (Auto) % Neut % (Auto) % Lymph % (Auto) % [place] % (Auto) % Eos % (Auto) % Baso % (Auto) % Reticulocyte % (Auto) (0.5-2.0) % Neut # (Auto) (1.40-6.50) K/uL Lymph # (Auto) (1.2-3.4) K/uL [place] # (Auto) (0.11-0.59) K/uL Eos # (Auto) (0-0.50) K/uL Baso # (Auto) (0-0.2) K/uL Reticulocyte # (0.02-0.10) 10^6/uL Immature Gran # (Auto) (0.01-0.20) K/uL Platelet Estimate (Normal) Ovalocytes Echinocytes POC Sodium 128 L (135-144) mmol/L Sodium (136-145) mmol/L POC Potassium 4.6 (3.3-5.0) mmol/L Potassium (3.5-5.1) mmol/L POC Chloride 99 L (101-112) mmol/L Chloride (98-107) mmol/L Carbon Dioxide (21-32) mmol/L POC Total CO2 17 L (24-31) mmol/L Anion Gap (3-11) POC Anion Gap 18.0 (16-25) mmol/L POC BUN 21 H (7-18) mg/dl BUN (6-23) mg/dl Creatinine (0.6-1.4) mg/dl POC Creatinine 1.8 H (0.6-1.3) mg/dl Est Cr Clr Drug Dosing ml/min Est GFR ( Amer) ml/min Est GFR (Non-Af Amer) ml/min BUN/Creatinine Ratio (10-20) Glucose (70-99(Fasting)) mg/dl POC Glucose (other) 133 H (70-99) mg/dl Lactate 4.7 H* (0.4-2.0) mmol/L Calcium (8.5-10.1) mg/dl POC Ioniz Calcium [place] 1.24 (1.12-1.32) mmol/l Magnesium (1.7-2.4) mg/dl Total Bilirubin (0.2-1.0) mg/dl Direct Bilirubin (0-0.2) mg/dl AST (13-39) U/L ALT (7-52) U/L Alkaline Phosphatase (34-104) U/L Troponin I High Sens (0-20) pg/ml C-Reactive Protein 11.51 H (0-0.5) mg/dl Total Protein (6.0-8.3) gm/dl Albumin (3.4-5.0) gm/dl Procalcitonin (0-0.5) ng/ml Urine Color Urine Appearance (Clear) Urine pH (4.5-7.5) Ur Specific [place] (1.000-1.030) Urine Protein (Negative) Urine Glucose (UA) (Negative) Urine Ketones (Negative) Urine Blood (Negative) Urine Nitrite (Negative) Urine Bilirubin (Negative) Urine Urobilinogen (Negative) Ur Leukocyte Esterase (Negative) Urine WBC (Auto) (0-5) /hpf Urine RBC (Auto) (0-4) /hpf U Hyaline Cast (Auto) (0-5) /lpf U Epithel Cells (Auto) (0-5) /lpf Urine Bacteria (Auto) (Negative) Urine Yeast SARS-CoV-2 (PCR) (Negative) Influenza Type A (PCR) (Neg) Influenza Type B (PCR) (Neg) RSV (RT-PCR) (Neg) Blood Type Blood Type Recheck Antibody Screen Crossmatch 08/18/22 08/18/22 08/18/22 Range/Units 15:39 16:17 17:16 WBC (4.8-10.8) K/ul RBC (4.70-6.10) M/uL Hgb (14.0-18.0) g/dl POC Hgb (14.0-18.0) g/dl Hct (42.0-52.0) % POC Hct (42-52) % MCV (80.0-100.0) fL MCH (25.0-34.0) pg MCHC (32.0-36.0) g/dL RDW Std Deviation (36.4-46.3) fL RDW Coeff of [place] (11.5-14.5) % Plt Count (130-400) K/uL MPV (9.4-12.4) fL Immature Gran % (Auto) % Neut % (Auto) % Lymph % (Auto) % [place] % (Auto) % Eos % (Auto) % Baso % (Auto) % Reticulocyte % (Auto) (0.5-2.0) % Neut # (Auto) (1.40-6.50) K/uL Lymph # (Auto) (1.2-3.4) K/uL [place] # (Auto) (0.11-0.59) K/uL Eos # (Auto) (0-0.50) K/uL Baso # (Auto) (0-0.2) K/uL Reticulocyte # (0.02-0.10) 10^6/uL Immature Gran # (Auto) (0.01-0.20) K/uL Platelet Estimate (Normal) Ovalocytes Echinocytes POC Sodium (135-144) mmol/L Sodium (136-145) mmol/L POC Potassium (3.3-5.0) mmol/L Potassium (3.5-5.1) mmol/L POC Chloride (101-112) mmol/L Chloride (98-107) mmol/L Carbon Dioxide (21-32) mmol/L POC Total CO2 (24-31) mmol/L Anion Gap (3-11) POC Anion Gap (16-25) mmol/L POC BUN (7-18) mg/dl BUN (6-23) mg/dl Creatinine (0.6-1.4) mg/dl POC Creatinine (0.6-1.3) mg/dl Est Cr Clr Drug Dosing ml/min Est GFR ( Amer) ml/min Est GFR (Non-Af Amer) ml/min BUN/Creatinine Ratio (10-20) Glucose (70-99(Fasting)) mg/dl POC Glucose (other) (70-99) mg/dl Lactate 4.4 H* (0.4-2.0) mmol/L Calcium (8.5-10.1) mg/dl POC Ioniz Calcium [place] (1.12-1.32) mmol/l Magnesium (1.7-2.4) mg/dl Total Bilirubin (0.2-1.0) mg/dl Direct Bilirubin (0-0.2) mg/dl AST (13-39) U/L ALT (7-52) U/L Alkaline Phosphatase (34-104) U/L Troponin I High Sens (0-20) pg/ml C-Reactive Protein (0-0.5) mg/dl Total Protein (6.0-8.3) gm/dl Albumin (3.4-5.0) gm/dl Procalcitonin (0-0.5) ng/ml Urine Color Dark Yellow Urine Appearance Turbid A (Clear) Urine pH 5.0 (4.5-7.5) Ur Specific [place] 1.013 (1.000-1.030) Urine Protein 1+ H (Negative) Urine Glucose (UA) Negative (Negative) Urine Ketones Negative (Negative) Urine Blood 2+ H (Negative) Urine Nitrite Negative (Negative) Urine Bilirubin Negative (Negative) Urine Urobilinogen Negative (Negative) Ur Leukocyte Esterase 3+ H (Negative) Urine WBC (Auto) >30 H (0-5) /hpf Urine RBC (Auto) 10-30 H (0-4) /hpf U Hyaline Cast (Auto) 0 (0-5) /lpf U Epithel Cells (Auto) 20-30 H (0-5) /lpf Urine Bacteria (Auto) 4+ H (Negative) Urine Yeast Not Reportable SARS-CoV-2 (PCR) (Negative) Influenza Type A (PCR) (Neg) Influenza Type B (PCR) (Neg) RSV (RT-PCR) (Neg) Blood Type O Positive Blood Type Recheck Antibody Screen NEGATIVE Crossmatch See Detail 08/18/22 08/18/22 08/18/22 Range/Units 17:16 18:37 18:57 WBC (4.8-10.8) K/ul RBC (4.70-6.10) M/uL Hgb 8.4 L (14.0-18.0) g/dl POC Hgb (14.0-18.0) g/dl Hct (42.0-52.0) % POC Hct (42-52) % MCV (80.0-100.0) fL MCH (25.0-34.0) pg MCHC (32.0-36.0) g/dL RDW Std Deviation (36.4-46.3) fL RDW Coeff of [place] (11.5-14.5) % Plt Count (130-400) K/uL MPV (9.4-12.4) fL Immature Gran % (Auto) % Neut % (Auto) % Lymph % (Auto) % [place] % (Auto) % Eos % (Auto) % Baso % (Auto) % Reticulocyte % (Auto) (0.5-2.0) % Neut # (Auto) (1.40-6.50) K/uL Lymph # (Auto) (1.2-3.4) K/uL [place] # (Auto) (0.11-0.59) K/uL Eos # (Auto) (0-0.50) K/uL Baso # (Auto) (0-0.2) K/uL Reticulocyte # (0.02-0.10) 10^6/uL Immature Gran # (Auto) (0.01-0.20) K/uL Platelet Estimate (Normal) Ovalocytes Echinocytes POC Sodium (135-144) mmol/L Sodium (136-145) mmol/L POC Potassium (3.3-5.0) mmol/L Potassium (3.5-5.1) mmol/L POC Chloride (101-112) mmol/L Chloride (98-107) mmol/L Carbon Dioxide (21-32) mmol/L POC Total CO2 (24-31) mmol/L Anion Gap (3-11) POC Anion Gap (16-25) mmol/L POC BUN (7-18) mg/dl BUN (6-23) mg/dl Creatinine (0.6-1.4) mg/dl POC Creatinine (0.6-1.3) mg/dl Est Cr Clr Drug Dosing ml/min Est GFR ( Amer) ml/min Est GFR (Non-Af Amer) ml/min BUN/Creatinine Ratio (10-20) Glucose (70-99(Fasting)) mg/dl POC Glucose (other) (70-99) mg/dl Lactate (0.4-2.0) mmol/L Calcium (8.5-10.1) mg/dl POC Ioniz Calcium [place] (1.12-1.32) mmol/l Magnesium (1.7-2.4) mg/dl Total Bilirubin (0.2-1.0) mg/dl Direct Bilirubin (0-0.2) mg/dl AST (13-39) U/L ALT (7-52) U/L Alkaline Phosphatase (34-104) U/L Troponin I High Sens 20.8 H (0-20) pg/ml C-Reactive Protein (0-0.5) mg/dl Total Protein (6.0-8.3) gm/dl Albumin (3.4-5.0) gm/dl Procalcitonin (0-0.5) ng/ml Urine Color Urine Appearance (Clear) Urine pH (4.5-7.5) Ur Specific [place] (1.000-1.030) Urine Protein (Negative) Urine Glucose (UA) (Negative) Urine Ketones (Negative) Urine Blood (Negative) Urine Nitrite (Negative) Urine Bilirubin (Negative) Urine Urobilinogen (Negative) Ur Leukocyte Esterase (Negative) Urine WBC (Auto) (0-5) /hpf Urine RBC (Auto) (0-4) /hpf U Hyaline Cast (Auto) (0-5) /lpf U Epithel Cells (Auto) (0-5) /lpf Urine Bacteria (Auto) (Negative) Urine Yeast SARS-CoV-2 (PCR) (Negative) Influenza Type A (PCR) (Neg) Influenza Type B (PCR) (Neg) RSV (RT-PCR) (Neg) Blood Type Blood Type Recheck O Positive Antibody Screen Crossmatch 08/18/22 Range/Units Unknown WBC (4.8-10.8) K/ul RBC (4.70-6.10) M/uL Hgb (14.0-18.0) g/dl POC Hgb (14.0-18.0) g/dl Hct (42.0-52.0) % POC Hct (42-52) % MCV (80.0-100.0) fL MCH (25.0-34.0) pg MCHC (32.0-36.0) g/dL RDW Std Deviation (36.4-46.3) fL RDW Coeff of [place] (11.5-14.5) % Plt Count (130-400) K/uL MPV (9.4-12.4) fL Immature Gran % (Auto) % Neut % (Auto) % Lymph % (Auto) % [place] % (Auto) % Eos % (Auto) % Baso % (Auto) % Reticulocyte % (Auto) (0.5-2.0) % Neut # (Auto) (1.40-6.50) K/uL Lymph # (Auto) (1.2-3.4) K/uL [place] # (Auto) (0.11-0.59) K/uL Eos # (Auto) (0-0.50) K/uL Baso # (Auto) (0-0.2) K/uL Reticulocyte # (0.02-0.10) 10^6/uL Immature Gran # (Auto) (0.01-0.20) K/uL Platelet Estimate (Normal) Ovalocytes Echinocytes POC Sodium (135-144) mmol/L Sodium (136-145) mmol/L POC Potassium (3.3-5.0) mmol/L Potassium (3.5-5.1) mmol/L POC Chloride (101-112) mmol/L Chloride (98-107) mmol/L Carbon Dioxide (21-32) mmol/L POC Total CO2 (24-31) mmol/L Anion Gap (3-11) POC Anion Gap (16-25) mmol/L POC BUN (7-18) mg/dl BUN (6-23) mg/dl Creatinine (0.6-1.4) mg/dl POC Creatinine (0.6-1.3) mg/dl Est Cr Clr Drug Dosing ml/min Est GFR ( Amer) ml/min Est GFR (Non-Af Amer) ml/min BUN/Creatinine Ratio (10-20) Glucose (70-99(Fasting)) mg/dl POC Glucose (other) (70-99) mg/dl Lactate (0.4-2.0) mmol/L Calcium (8.5-10.1) mg/dl POC Ioniz Calcium [place] (1.12-1.32) mmol/l Magnesium (1.7-2.4) mg/dl Total Bilirubin (0.2-1.0) mg/dl Direct Bilirubin (0-0.2) mg/dl AST (13-39) U/L ALT (7-52) U/L Alkaline Phosphatase (34-104) U/L Troponin I High Sens (0-20) pg/ml C-Reactive Protein (0-0.5) mg/dl Total Protein (6.0-8.3) gm/dl Albumin (3.4-5.0) gm/dl Procalcitonin (0-0.5) ng/ml Urine Color Urine Appearance (Clear) Urine pH (4.5-7.5) Ur Specific [place] (1.000-1.030) Urine Protein (Negative) Urine Glucose (UA) (Negative) Urine Ketones (Negative) Urine Blood (Negative) Urine Nitrite (Negative) Urine Bilirubin (Negative) Urine Urobilinogen (Negative) Ur Leukocyte Esterase (Negative) Urine WBC (Auto) (0-5) /hpf Urine RBC (Auto) (0-4) /hpf U Hyaline Cast (Auto) (0-5) /lpf U Epithel Cells (Auto) (0-5) /lpf Urine Bacteria (Auto) (Negative) Urine Yeast SARS-CoV-2 (PCR) NEGATIVE (Negative) Influenza Type A (PCR) Negative (Neg) Influenza Type B (PCR) Negative (Neg) RSV (RT-PCR) Negative (Neg) Blood Type Blood Type Recheck Antibody Screen Crossmatch Administered Medications Lactated Ringer's (Lr) 1,000 mls @ 125 mls/hr IV .Q8H HERBIE Stop: 09/17/22 16:29 Last Admin: 08/18/22 16:27 Dose: 125 mls/hr Documented By: KELLEN Norepinephrine Bitartrate (Levophed/D5w) 4 mg in 250 mls @ 12.188 mls/hr IV .[id number] HERBIE; Protocol Stop: 09/17/22 18:29 Last Titration: 08/18/22 18:56 Dose: 0.05 mcg/kg/min, 12.2 mls/hr Documented By: Co-signed By: 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: 08/18/22 18:30 Dose: 0.05 mcg/kg/min, 12.2 mls/hr Documented By: Co-signed By: KELLEN Lactated Ringer's (Lr) 1,000 mls @ 125 mls/hr IV .Q8H HERBIE Stop: 09/17/22 18:29 Last Admin: 08/18/22 18:36 Dose: 125 mls/hr Documented By: AB Discontinued Medications Sodium Chloride (Nss 1000ml) 1,000 mls @ 999 mls/hr IV .Q1H1M HERBIE Stop: 08/18/22 15:45 Last Infusion: 08/18/22 15:58 Dose: 0 mls/hr Documented By: Admin: 08/18/22 14:51 Dose: 999 mls/hr Documented By: KT Sodium Chloride (Nss 1000ml) 1,000 mls @ 999 mls/hr IV .Q1H1M ONE Stop: 08/18/22 16:08 Last Infusion: 08/18/22 16:22 Dose: 0 mls/hr Documented By: Admin: 08/18/22 15:21 Dose: 999 mls/hr Documented By: KELLEN Cefepime HCl (Maxipime) 2,000 mg in 20 mls @ 5 mls/min IV NOW STA; Protocol Stop: 08/18/22 15:45 Last Admin: 08/18/22 15:46 Dose: 5 mls/min Documented By: KELLEN Miscellaneous (Stat Iv Infusion Titration Per Protocol) 1 each N/A NOW STA Stop: 08/18/22 18:25 Last Admin: 08/18/22 18:44 Dose: Not Given Documented By: AB Imaging Data Radiologist's Impression: Chest X-Ray 08/18/22 14:38 XR chest 1V portable HISTORY: Sepsis COMPARISON: Chest 06/23/2022. FINDINGS: No pneumothorax. No pleural effusions. There is a left-sided single lead pacemaker/defibrillator again noted. No focal lung consolidations to suggest a pneumonia. No evidence for pulmonary edema. The cardiac silhouette remains mildly enlarged. IMPRESSION: No significant change compared to the prior study. No acute process. ACT 112: Negative or not required by law. Electronically signed by: Justus Garza M.D. 08/18/2022 3:[address] 08/18/22 15:[address] DOSE: 614.27 mGy.cm HISTORY: confused TECHNIQUE: Multiaxial CT images of the head were performed without the use of intravenous contrast. Automated exposure control was utilized for this study. A dose lowering technique was utilized adhering to the principles of ALARA. Comparison: Head CT 06/23/2022. Findings: The paranasal sinuses and mastoid air cells are clear. The calvarium and skull base are intact. Atrophy and microvascular ischemic changes are again noted. 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 No acute infarct identified. There is no mass or midline shift. 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 Decrease in size in the 3 mm extra- axial hyperdensity within the right frontal lobe. Impression: 1. Continued decrease in size in the now 3 mm extra-axial hyperdensity within the right frontal region. This favors chronic pleural thickening rather than an acute on chronic subdural hematoma given the interval improvement. 2. No significant change in the right frontal temporal encephalomalacia suggesting an old infarct. ACT 112: Negative or not required by law. Electronically signed by: Justus Garza M.D. 08/18/2022 7:59 PM Discharge Plan Visit Data Chief Complaint: Hypotension Stated Complaint: LETHARGIC, HYPOTENSION ED Provider: Erendira Turner Discharge Problem: Hypotension, Confusion, Generalized weakness, Anemia, JENNI (acute kidney injury), Hyponatremia, Sacral wound, Elevated troponin Forms Stand Alone Forms: [facility] Prescriptions Prescriptions: No Action potassium chloride 10 mEq capsule, extended release 20 meq PO BID acetaminophen [Tylenol] 325 mg Tablet 650 mg PO Q6 PRN (Reason: Pain) atorvastatin 20 mg tablet 20 mg PO DAILY pantoprazole 20 mg tablet,delayed release (DR/EC) 20 mg PO DAILY magnesium oxide 400 mg (241.3 mg magnesium) tablet 400 mg PO DAILY tamsulosin 0.4 mg capsule 0.4 mg PO HS montelukast 10 mg tablet 10 mg PO QPM allopurinol 300 mg tablet 300 mg PO DAILY furosemide 20 mg tablet 20 mg PO QAM metoprolol succinate 25 mg tablet extended release 24 hr 25 mg PO DAILY azelastine 137 mcg (0.1 %) aerosol,spray 2 spray INTRANASAL BID fluticasone propionate [Flonase] 50 mcg/actuation [place],Suspension 2 spray INTRANASAL DAILY Rx Instructions: administer into each nostril lisinopril 2.5 mg tablet 2.5 mg PO DAILY loratadine 10 mg Tablet 10 mg PO HS dutasteride 0.5 mg capsule 0.5 mg PO DAILY duloxetine 30 mg capsule,delayed release(DR/EC) 30 mg PO DAILY Centrum Silver 0.4 mg-300 mcg- 250 mcg Tablet 1 tab PO DAILY Triple Antibiotic 3.5-400-5,000 [id number] Ointment In Packet 1 applic TOPICAL DIRECTED PRN (Reason: .wounds) Xarelto 15 mg tablet 15 mg PO QPM melatonin 10 mg Tablet 10 mg PO HS PRN (Reason: Sleep) Referrals Referrals: Sandy Cisse MD [Family Provider] -
[2022-08-18] MEDS ORDERED: SODIUM CHLORIDE 0.9% 1000ML 1,000 ML IV ONE (15:08)
--- NOTE | 2022-08-18 15:12 | XRay Report ---
XR chest 1V portable HISTORY: Sepsis COMPARISON: Chest 06/23/2022. FINDINGS: No pneumothorax. No pleural effusions. There is a left-sided single lead pacemaker/defibril lator again noted. No focal lung consolidations to suggest a pneumonia. No evidence for pulmonary lexie ma. The cardiac silhouette remains mildly enlarged. IMPRESSION: No significant change compared to the prior study. No acute process. ACT 112: Negative or not required by law. Electronically signed by: Justus Garza M.D. 08/18/2022 3:09 PM
[2022-08-18 15:15] LABS: Albumin Level 2.3 gm/dl (3.4-5.0); BUN Creatinine Ratio 14.4 (10-20); Bilirubin Direct 0.4 mg/dl (0-0.2); Bilirubin,Total 0.9 mg/dl (0.2-1.0); Calcium 8.5 mg/dl (8.5-10.1); Creatinine Clr Calc Pharmacy 30.6 ml/min; Est GFR (African American) 42.9 ml/min; Potassium 4.6 mmol/L (3.5-5.1); Total Protein 4.6 gm/dl (6.0-8.3)
[2022-08-18 15:20] LABS: Basophils # (auto) 0.01 K/uL (0-0.2); Basophils % (auto) 0.1 %; Echinocytes 2+; Eosinophils # (auto) 0.01 K/uL (0-0.50); Eosinophils % (auto) 0.1 %; Hemoglobin 7.8 g/dl (14.0-18.0); Immature Granulocytes # (auto) 0.09 K/uL (0.01-0.20); Immature Granulocytes % (auto) 0.6 %; Lymphocytes # (auto) 0.95 K/uL (1.2-3.4); Lymphocytes % (auto) 6.8 %; Mean Corpuscular Hemoglobin 30.7 pg (25.0-34.0); Mean Corpuscular Hgb Conc 33.9 g/dL (32.0-36.0); Mean Corpuscular Volume 90.6 fL (80.0-100.0); Neutrophils # (auto) 11.57 K/uL (1.40-6.50); Neutrophils % (auto) 82.4 %; Ovalocytes 1+; Platelet Count 111 K/uL (130-400); Platelet Estimate Decreased (Normal); RDW Coefficient of Variation 16.3 % (11.5-14.5); Red Blood Count 2.54 M/uL (4.70-6.10); Troponin I High Sensitivity 22.7 pg/ml (0-20); White Blood Count 14.03 K/ul (4.8-10.8)
[2022-08-18 15:34] LABS: iSTAT Creatinine 1.8 mg/dl (0.6-1.3); iSTAT Hemoglobin 8.8 g/dl (14.0-18.0); iSTAT Ionized Calcium 1.24 mmol/l (1.12-1.32); iSTAT Potassium 4.6 mmol/L (3.3-5.0)
[2022-08-18] MEDS ORDERED: CEFEPIME 2,000 MG/20 ML VIAL IV STA (15:42)
[2022-08-18 15:58] LABS: Influenza A virus by PCR Negative (Neg); Influenza B virus by PCR Negative (Neg); RSV by PCR Negative (Neg); SARS CoV2 RNA(COVID-19) Ceph NEGATIVE (Negative)
[2022-08-18] MEDS: LACTATED RINGER'S 1,000 ML IV SCH (16:27)
[2022-08-18 16:41] LABS: Appearance Urine Turbid (Clear); Bacteria Urine Automated 4+ (Negative); Bilirubin Urine Negative (Negative); Blood Urine 2+ (Negative); Color Urine Dark Yellow; Epithelial Cell Urine Auto 20-30 /lpf (0-5); Glucose Urine UA Negative (Negative); Ketones Urine Negative (Negative); Leukocyte Esterase Urine 3+ (Negative); Nitrite Urine Negative (Negative); Protein Urine 1+ (Negative); Specific Gravity Urine 1.013 (1.000-1.030); Urobilinogen Urine Negative (Negative); WBC Urine Automated >30 /hpf (0-5)
[2022-08-18 17:06] LABS: Cast Urine Automated 0 /lpf (0-5)
[2022-08-18 17:16] LABS: Reticulocyte % 1.9 % (0.5-2.0); Reticulocytes # 0.05 10^6/uL (0.02-0.10)
[2022-08-18] MEDS ORDERED: SODIUM CHLORIDE 0.9% 250 ML IV PRN (17:25)
--- NOTE | 2022-08-18 17:46 | History & Physical Report ---
Date of Service August 18, 2022 Assessment & Plan (1) Hypotension: Plan: Stabilizing, has had 4 L of isotonic fluid, and is getting a unit of blood. I suspect it is probably profound dehydration due to failure to thrive as well as his home medications (Lasix causing extra dehydration, and his other antihypertensives essentially accentuating the hypotension brought on by the dehydration), hard to rule out septic shock given the rest of his presentation, although as outlined below it seems less likely. Continue to follow closely, his most recent mean arterial pressure is 68. Fortunately in spite of all the fluid he is not showing any signs of decompensated CHF, and his most recent echo was quite reassuring. Discussed with the son, and while his father is a DNR/DNI, if his hypotension were refractory and requiring ICU transfer for pressor support temporarily he would be okay with this. (2) Failure to thrive: Plan: It really sounds like this is the central culprit for the patient's decline. He has had what sounds to be a bit of a overall decline in function since his intracranial bleed about 10 months ago. This was then made worse by his 's illness and what sounds to be a pretty profound subsequent depression. His poor p.o. intake and overall failure to thrive may be enough to explain almost all of his decline, with a few "loose ends" (such as the severity of the anemia may exceed the severity of the malnutrition), but certainly there is a pretty good picture that this is the driving factor, or at least a major driving factor, and his current hypotension/hospitalization, as well as the main factor for his overall recent decline. For now we need to stabilize him, but then going after the failure to thrive will really probably be multidisciplinary between nutritional support, therapy for his profound deconditioning, and trying to help with his depression. (3) Sepsis: Plan: I actually doubt he is truly septic, but at the same time its impossible to rule out, and his HPI/physical exam are nonspecific enough that I feel compelled to cover with empiric antibiotics for now. His urine is likely to be positive just from dehydrationand given that he denies any dysuria (for what it is worth) that would certainly make UTI less likely. He also does not show any signs or symptoms of pneumonia, C. difficile, or cellulitis (he does have sacral ulcers that I was not able to personally visualize due to his weakness and positioningbut in discussion with the ER physician, they look significant but not cellulitic). Blood cultures are pending. Will continue empiric cefepime for now, follow serial exams, follow cultures, trend a CRP and Pro-Carlos again into tomorrow, and if there are no clear signs or symptoms of infection over serial exams and time, can probably discontinue the empiric antibiotics. (For EMR purposes, however, I will enter urinary tract infection as the indicationbecause I have seen the automatic timeout for "empiric" because patient harm because the antibiotics are often discontinued without any notification to the physician; if antibiotics are able to be discontinued tomorrow, I want it to be an active decision, rather than risk a passive "fall off"). Given that I am less suspicious there is anything infectious, and nothing that would be likely gram-positive, I will hold on any sort of MRSA coveragebut will obtain MRSA naris for its negative predictive value. (4) Delirium: Plan: Multifactorial and with an uncertain baseline. Certainly dehydration hypotension and depression, as well as changing environments could all be contributory to his delirium. Head CT pendingI doubt a repeat bleed as the culprit, but given that he had a prior significant bleed and is on Xarelto, it certainly possible. Should his head CT showed new/worse bleed, we will need to readdress this with the son in the context of goals of care/transfer/etc. (5) Anemia: Plan: His stool is heme-negative and his reticulocyte count is almost nonexistent, bleeding heavily towards hypoproliferative anemia (probably from malnutrition overall), but his hemoglobin was 11.6 only about 2 months ago, and that does seem to be a bit of a steep decline for malnutrition alone. This will be my working diagnosis, but we will certainly be following serial exams, serial labs, and looking for any signs or symptoms of bleeding. With his bilirubin being 0.9 I doubt hemolysis. He is getting a unit of blood now (agree with thishis blood pressures are still somewhat marginal after 4 L of fluid and with his anemia, giving blood makes more sense than initiating pressors, and his hemoglobin was 7.8 before the 4 Lsimply by hemoconcentration the ER physician and I agree his "raw" hemoglobin was likely in the 5-6 range anyway). We will check iron studies B12/folate as I expect them to be rather low (6) Elevated troponin: Plan: Nonischemic cardiomyopathy, heart cath about 7 years ago with moderate disease at worst, and certainly 7 years is a relatively long time, but he was also about 79 whenever the cath was done. His EKG is overall stable from prior. His troponin went from 22.7-20.8. I think this is really probably more of a mild watershed effect, may be exceedingly mild demand ischemia, from his hypotension and volume depletion but not any true ACS/myocardial event. We will check a repeat echocardiogram because of the possible contribution to his hypotension (both cause or effect) but nothing acute cardiac appears to be at play right now. (7) Acute renal failure: Plan: Superimposed on baseline stage III CKD. Almost certainly from volume depletion and continuing to take his home meds in the face of significantly poor p.o. intake from failure to thrive. I expect this to improve with fluids and blood. Certainly it is possible he could have a degree of ATN, but fortunately his creatinine is not nearly as high as 1 would expect given his HPI. His hyponatremia is probably from poor solute/poor p.o. intake as well. (8) Malnutrition: Plan: From failure to thrivedepression, delirium, poor p.o. intake overall. Appears to be probably moderate to acutely severe protein calorie malnutrition. Is muscle wasting, has sacral ulcer, hyponatremic, probably to a degree having hard time holding his pressures from poor intravascular oncotic pressure from the malnutrition, etc. Will be a difficult diagnosis to turn, given his depression and delirium as well as overall weakness and deconditioning are probably driving the malnutrition, which in turn is fueling the vicious cycle of his decline. (9) Abdominal fullness: Plan: Fairly nonspecific on exammay be something as simple as constipation (will follow bowels). This, as well as his neck stiffness, seemed to both be nonspecific findings, but serial exams and vigilance for both. Of note, I did consider retroperitoneal bleed for his anemia, but given that it is so hypoproliferative, and he does seem to be stabilizing the fluid, I doubt that is the case. Certainly if his hemoglobin continues to drop, or his blood pressure does not stabilize, CT abdomen pelvis to evaluate for bleed can be quickly i nitiated, but I do not think that is the case at this time (10) Depression: Plan: Probably a major factor in his failure to thrive. Right now we need to stabilize his physical self before we can start to work on the depression. (11) Atrial flutter: Plan: Fortunately in spite of his hypotension, his rate is controlled. Obviously we will be holding his home meds, can use digoxin if need be for rate control, and will have a low-dose of as needed metoprolol in place if needed. Until his head CT shows no instability with his prior bleed, and until the situation with his hemoglobin has clearly been defined as only hypoproliferative/malnutrition driven and not any bleeding, we will need to hold off on his Xarelto (12) History of CVA (cerebrovascular accident): Plan: As well as prior head bleed. Chronic left-sided contractures. (13) Sacral wound: Plan: Was not able to directly visualize myself, but in discussion with the ER physician, significant wound but nothing appearing cellulitic. Wound care eval and treat (14) DVT prophylaxis: Plan: Pharmacologic on holdsee above under #11, atrial flutter for rationale. Mechanical would be of dubious benefit (paucity of evidence that mechanical prophylaxis actually does much to prevent VTE), and of possible harm given his frailtyI would worry about it causing more skin breakdown. (15) Discharge planning issues: Plan: PT/OT eval and treat. He comes from [facility]. The son and I both agree at this point he likely will need SNF level care. Plan In discussion with the son, and on his advanced directives, he is a DNR/DNI History of Present Illness Chief Complaint: Hypotension Primary Care Provider: [facility] Patient is an 86-year-old male. History obtained from ER physician and son. I did ask the patient himself HPI related questions, but a lot of his answers were extremely short, and he seems to be mildly confusedso while these are included in his HPI, they are of questionable veracity The patient himself seems to have been on a slow but steady decline since his fall and intracranial bleed last September. Since then the son notes that he has not really bounced back. Unfortunately from May forward, his was in the hospital quite a bit and I believe his since the past. During that time, the patient has started to become more and more depressed. He was getting less and less able to take care of himself. His p.o. intake is dropped off quite considerablyits not clear how much if anything he is really taking it at all. About a month or so ago, the son moved the patient from his home to [place] [facility] for extra support, but the son notes that he does not think it has been as much as his father needs. Apparently while the staff will try to get the patient out of bed, if left to his own devices the patient would not get out of bed at all. Patient notes a degree of neck pain, as well as maybe a mild degree of belly pain (although this is mostly noted on physical exam) and denies fevers chills or sweats. Denies dysuria. Denies any focal symptoms. In discussion with the son, he mostly sees a stepwise decline in his father without any real focal symptoms to show for itmore rather that of a global decline and a picture of failure to thrive. He does note a good degree of confusion probably over the last few weeks, although when asked when the last time his dad was truly coherent, he has a hard time really being able to put a timeline on that given the rest of the decline that started with the intracranial bleeding. Recent notes from Dr. Cisse and Dr. Stover from office visits in June are also quite helpful. Review of systems otherwise negative except for as above Allergies Allergy/AdvReac Type Severity Reaction Status Date / Time codeine AdvReac Unknown N/V Verified 08/18/22 17:24 Home Medications Medication Instructions Recorded Confirmed Type acetaminophen 325 mg tablet 650 mg PO Q6 PRN Pain 08/18/22 08/18/22 History (Tylenol) allopurinol 300 mg tablet 300 mg PO DAILY 08/18/22 08/18/22 History atorvastatin 20 mg tablet 20 mg PO DAILY 08/18/22 08/18/22 History azelastine 137 mcg (0.1 %) nasal 2 spray intranasal BID 08/18/22 08/18/22 History spray aerosol duloxetine 30 mg capsule,delayed 30 mg PO DAILY 08/18/22 08/18/22 History release dutasteride 0.5 mg capsule 0.5 mg PO DAILY 08/18/22 08/18/22 History fluticasone propionate 50 2 spray intranasal DAILY 08/18/22 08/18/22 History mcg/actuation nasal spray,suspension furosemide 20 mg tablet 20 mg PO QAM 08/18/22 08/18/22 History lisinopril 2.5 mg tablet 2.5 mg PO DAILY 08/18/22 08/18/22 History loratadine 10 mg tablet 10 mg PO HS 08/18/22 08/18/22 History magnesium oxide 400 mg (241.3 mg 400 mg PO DAILY 08/18/22 08/18/22 History magnesium) tablet melatonin 10 mg tablet 10 mg PO HS PRN Sleep 08/18/22 08/18/22 History metoprolol succinate 25 mg 25 mg PO DAILY 08/18/22 08/18/22 History tablet,extended release 24 hr montelukast 10 mg tablet 10 mg PO QPM 08/18/22 08/18/22 History wkjtpzxq-wse-lhvuo acid 0.4 1 tab PO DAILY 08/18/22 08/18/22 History mg-lycopene 300 mcg-lutein 250 mcg tablet (Centrum Silver) neomycin-bacitracn Zn-polymyxn 3.5 1 applic topical DIRECTED PRN 08/18/22 08/18/22 History mg-400 unit-5,000 unit top oint .wounds pkt (Triple Antibiotic) pantoprazole 20 mg tablet,delayed 20 mg PO DAILY 08/18/22 08/18/22 History release potassium chloride 10 mEq 20 meq PO BID 08/18/22 08/18/22 History capsule,extended release rivaroxaban 15 mg tablet (Xarelto) 15 mg PO QPM 08/18/22 08/18/22 History tamsulosin 0.4 mg capsule 0.4 mg PO HS 08/18/22 08/18/22 History Past Med/Surg History Medical History BPH w urinary obs/LUTS Chronic systolic (congestive) heart failure Complex sleep apnea syndrome Frequent falls History of CVA (cerebrovascular accident) Hypercholesterolemia Hypertension Mitral regurgitation Permanent atrial fibrillation Pseudomonas septicemia Pseudomonas urinary tract infection Right cataract Stage 3a chronic kidney disease Surgical History History of ankle surgery History of dental surgery Status post implantation of automatic cardioverter/defibrillator (AICD) Family History Uncle Diabetes Father Stroke Nephrolithiasis Grandfather (Paternal) Stroke Other Hypertension Myocardial infarction Denies family history of Ovarian cancer Prostate cancer Breast cancer Lung cancer Colorectal cancer Social History Smoking Status: Never smoker Tobacco Type: Cigarettes Second Hand Exposure: No; Hx Alcohol Use: Yes (At most once a week ) Alcohol type: beer Alcohol Intake Frequency: Monthly or Less Hx Substance Use: No Preferred Language: Maldivian Visual Impairment: Limited Hearing Ability: Normal marital status: Current Living Situation: Spouse current occupational status: retired How many Children do You have: 3 Feels Safe at Home: Yes Childhood Exposure to Second-Hand Smoke: No caffeine: Yes Dental Care, Regularly: Yes Physical Activity Frequency: Does not Exercise Seatbelt Use: always Sunscreen Use: Yes Assistive Devices: Hospital Bed and Wheelchair Physical Exam Physical Exam: General he is awake and alert, somewhat tough to truly gauge his mental status because he is hard of hearing and gives very short answers, but he definitely seems to be "appropriately disoriented" i.e. he will answer questions fairly appropriately, but with the son in the room at the same time, it sounds like the answers are really of questionable veracity, and essentially the patient is "conversationally confused". HEENT normocephalic other than superficial bruising atraumatic. Mucous membranes reasonably moistbut there is thick mucusand the ER physician notes that whenever she first assessed him he was quite dry, I am seeing him after 4 L of isotonic fluid has been given. His neck shows right sided paraspinal hypertonicity and tenderness far more than any bony tenderness, he has a fairly full passive range of motion that is uncomfortable but does not seem to really provoke pain, and he does not have anything that really resembles a Kernig's or Brudzinski's. Cardio is irregularly irregular, and he has about a 10 beat run of consecutive ventricular ectopy shortly after I leave the room, but no true ventricular tachycardia. Lungs are a difficult exam due to his weakness and positioning, but seem to be clear to auscultation bilaterally no rales rhonchi or wheezes (there is a little bit of faint crackling left lower lung, but it sounds to be referred bowel sounds given no correlation with respiration and the overall quality) moderate effort no conversational dyspnea no accessory muscle use, 100% on room air. Abdomen is mildly stiffbut does not really seem to be rigid or guarding, mild right-sided tenderness over elsewhere, no guarding rebound or rigidity no real focal points of tenderness, no bruising across his abdomen, no notable hernias. Extremities are without cyanosis clubbing (trace edema bilaterally), no calf tenderness. Neuro shows left-sided arm and leg contracturesthese are chronic. Skin with diffuse bruising. His left foot is a little bit of a shade of red that seems to fit with his chronic contracted state, and the son does not know if there is anything new or different about his feet. He shows a lot of muscle wasting. Mental status as above. EKG shows A-fib with Q waves V1 through V4, as well as 2 3 and aVF, but is quite consistent with an EKG from about 2 months ago. His CBC is remarkable for a leukocytosis at 14, hemoglobin of 7.8 with an MCV of 90.6 (down from 92.42 months ago) platelets of 111 and a retic index of for all intents and purposes 0. His INR in June was 1.4 he shows a sodium 126, potassium 4.6, chloride 100, CO2 19, BUN 24, creatinine 1.67, calcium 8.5 with a glucose of 165, lactate of 4.7 recheck comes down to 4.4, mag 2.0, bili 0.9 with a direct 2.4. Transaminases and alk phos all normal, CRP 11.5 with a Pro-Carlos of about 0.57, total protein low at 4.6 with an albumin low at 2.3 troponin of 22.7 with a recheck pending. TSH in June was normal around 1. Chest x-ray shows left-sided pacer defibrillator but no consolidations pneumonia or pulmonary edema. Head CT has been ordered by the ER but is pending as of the time of this dictation. His most recent echo about 3 years ago showed an EF of 60-65 with mild AI mild MR moderate TR mild LVH (this was up from a nonischemic cardiomyopathy low of an EF of about 25 to 30% in 2017). Left heart cath in 2016 showed essentially mild diffuse stenoses with the worst being diffuse 40 to 50% proximal LAD stenosis. Further details are well outlined in Dr. Stover notes. Results & Data Results & Data Vital Signs (Past 12 Hours) Vital Signs Temp Pulse Pulse Resp BP BP Pulse Ox 08/18/22 17:30 90 23 87/56 L 100 08/18/22 17:15 82 24 86/59 L 100 08/18/22 17:02 85 29 H 81/56 L 100 08/18/22 16:56 92 H 08/18/22 16:47 91 H 26 H 82/51 L 100 08/18/22 16:30 86 30 H 85/59 L 100 08/18/22 16:15 72 27 H 78/50 L 98 08/18/22 16:00 83 25 H 83/54 L 99 08/18/22 15:45 92 H 25 H 90/53 L 100 08/18/22 15:30 80 28 H 82/61 L 100 08/18/22 15:20 08/18/22 14:38 08/18/22 15:15 68 26 H 81/47 L 100 08/18/22 15:06 98.2 F 74 20 70/43 L 100 O2 Del Method 08/18/22 17:30 Room Air 08/18/22 17:15 Room Air 08/18/22 17:02 Room Air 08/18/22 16:56 08/18/22 16:47 Room Air 08/18/22 16:30 Room Air 08/18/22 16:15 Room Air 08/18/22 16:00 Room Air 08/18/22 15:45 Room Air 08/18/22 15:30 Room Air 08/18/22 15:20 Room Air 08/18/22 14:38 Room Air 08/18/22 15:15 Room Air 08/18/22 15:06 Room Air PG Care Time/CCT Total # of Minutes Spent Total Time Spent with Patient: Total time spent is greater than 50% in coordination of care (as documented) at patient's floor/unit and/or counseling patient: Coding Level of Care Code 33307 INT INP/OBS CARE 3/75MIN Diagnoses Hypotension I95.9 Failure to thrive Sepsis A41.9 Delirium R41.0 Anemia D64.9 Elevated troponin R77.8 Acute renal failure N17.9 Malnutrition E46 Abdominal fullness R19.8 Depression F32.9 Atrial flutter I48.92 History of CVA (cerebrovascular accident) Z86.73 Sacral wound S31.000A DVT prophylaxis Z29.9 Discharge planning issues Z02.9
[2022-08-18] MEDS ORDERED: STAT IV Infusion **Titration per Protocol STA (18:24)
[2022-08-18] MEDS ORDERED: LACTATED RINGER'S 1,000 ML IV SCH (18:30)
[2022-08-18] MEDS: NOREPINEPHRINE/D5W 4 MG/250 ML PLCT IV SCH (18:30)
--- NOTE | 2022-08-18 20:01 | CT Scan Report ---
HEAD CT NONCONTRAST CT DOSE: 614.27 mGy.cm HISTORY: confused TECHNIQUE: Multiaxial CT images of the head were performed without the use of intravenous contrast. A utomated exposure control was utilized for this study. A dose lowering technique was utilized adheri ng to the principles of ALARA. Comparison: Head CT 06/23/2022. Findings: The paranasal sinuses and mastoid air cells are clear. The calvarium and skull base are int act. Atrophy and microvascular ischemic changes are again noted. Large area of encephalomalacia invol ving the right frontal temporal lobe is again noted consistent with an old infarct. No acute infarct identified. There is no mass or midline shift. There is an old punctate lacunar infarct within the le ft caudate head, unchanged. Decrease in size in the 3 mm extra-axial hyperdensity within the right fr ontal lobe. Impression: 1. Continued decrease in size in the now 3 mm extra-axial hyperdensity within the right frontal regio n. This favors chronic pleural thickening rather than an acute on chronic subdural hematoma given the interval improvement. 2. No significant change in the right frontal temporal encephalomalacia suggesting an old infarct. ACT 112: Negative or not required by law. Electronically signed by: Justus Garza M.D. 08/18/2022 7:59 PM
[2022-08-18] MEDS ORDERED: ALUMINUM/MAGNESIUM SUSP 30 ML UDC PO PRN (20:38)
[2022-08-18] MEDS ORDERED: POLYETHYLENE (MIRALAX) 17 GM PACK PO PRN (20:38)
[2022-08-18] MEDS ORDERED: ONDANSETRON INJ 2 MG/ML 2 ML VIAL IV PRN (20:38)
[2022-08-18] MEDS ORDERED: MAGNESIUM HYDROXIDE SUSP 30 ML UDC PO PRN (20:38)
[2022-08-18] MEDS ORDERED: MELATONIN 3 MG TAB PO PRN (20:38)
[2022-08-18] MEDS ORDERED: METOPROLOL TARTRATE 1 MG/ML VIAL IV PRN (20:38)
--- NOTE | 2022-08-18 21:01 | Critical Care Consultation ---
Date of Consultation August 18, 2022 Assessment & Plan (1) Hypotension: (2) Shock: (3) Elevated troponin: (4) Failure to thrive: (5) JENNI (acute kidney injury): (6) Hyponatremia: (7) Sacral wound: (8) History of CVA (cerebrovascular accident): (9) Complex sleep apnea syndrome: (10) Chronic systolic (congestive) heart failure: (11) Permanent atrial fibrillation: (12) Hemiplegia of nondominant side, late effect of cerebrovascular disease: Plan Reason Critically Ill: 86 YOM resident of [facility], presented to EMD hypotensive and lethargic in setting of reported decrease oral intake over the past 2-3 days. Patient adequatley volume resuscitated with crystalloid and PRBC transfusion. Currently requiring low dose Levophed for hemodynamic support. He has no evidence of acute decompensated HF on exam and has handled the volume received well to this point. Continue with Broad spectrum ABX coverage and continue to support and search for reversible causes of his hypotension Neuro - Bed bound chronically ill, hx of CVA, dementia/depression, hx of SDH (2021) - Continue supportive care, frequent re-orientation and maintain normal sleep and wake cycles - Continue with Duloxetene Cardiac - Shock, Permanent afib, PPM (VVI 40), PVC, HTN, CAD, ICM - Shock undifferentiated at this time- likely multifactorial to include hypovolemic and sepsis - Is on BB and Marquez inhibitor at home- BUSINESS MANAGEMENT MANAGER is mildly elevated from baseline at 1.4- will give 5mg of Glucagon- although patient is not bradycardic at this time - Random Cortisol is 21, TSH is pending - Continue with volume- if further fluid needed consider albumin and Levophed to maintain Maps >65 and UO 30ml per hour - For his Afib- he is chronically anticoagulated with Xarelto- hold until acute blood loss ruled in/out - Hold BB while on vasopressors - Hold MARQUEZ with JENNI Respiratory - GA, - no acute needs at this time and no evidence of pulmonary congestion currently - continue with nightly BiPAP - DNR/DNI GI - Decrease oral intake - Supportive care at this time- nutritional evaluation in morning RENAL/LYTES - JENNI, Hyponatremia, AGAPmetabolic acidosis - JENNI in the setting of shock- see above - Maintain MAPS >65 - avoid further nephrotoxic medications - AGAP 18- elevated BUN and Lactate- VBG on arrival - Add Thiamine for decrease enteral intake - BPH with LUTS - Continue sandoval- hold alpha blockers while hypotensive ENDO - NO acute needs - Random Cortisol and TSH normal - Add Dextrose sticks- goal BG <180mg/dl HEME - Anemia- normocytic/normochromic - No evidence of acute blood loss anemia- AOCD vs. nutritional deficiency - Workup initiated by admitting medicine team- follow results - Transfuse for HGB >8.0 or symptomatic ID - Sepsis - Technically meets sepsis criteria with evidence of organ dysfunction- elevated WBC with elevated NLR, elevated Lacate, CRP elevated and PCT 0.57 - UA - with LE+, NI (-) and 4+ bacteria- continue cefepime- MRSA pending - CXR without opacifications, no oxygen requirement, no cough - Continue broad spectrum abx until cultures result - follow clinically LINES/IV ACCESS - PIV, Sandoval Continue use of these lines DVT PROPHYLAXIS - SCDS, heparin 5000 units subq q12 DISPO: ICU while on vasopressor agents I have personally spent 45 minutes of critical care time in the direct management of this patient. This is a life/limb threatening event. This includes time spent evaluating patient, direct bedside care, chart review, placing orders, interpretation of diagnostic studies, discussion with consultants, patient, and family members, as well as other required patient management activities. This time is exclusive of all separately billable procedures, and teaching time and separate from and in addition to any other critical care service time. Thank you for allowing us to participate in the care of this patient. Please refer to my attending physician's documentation for any further recommendations. History of Present Illness Reason for Consultation: Hypotension requiring vasopressor support Requesting Physician: Chau Blankenship MD Attending Physician: Amrit Baptiste DO History of Present Illness 86 YOM that is resident at [facility] presents tot he EMD hypotensive and lethargic. Following discussion with the Son at bedside appears that the patient has not been eating or drinking much over the past 2-3 days and he was notified this morning of lethargy and low blood pressure by the SNF. In the EMD the patient received what appears to be ~3.5 liters of crystalloid and currently undergoing blood transfusion. He is on 0.05mcg/kg/min of Levophed and MAPS currently in the 80s. Discussed goals of care with the son that if supportive care with fluids and vasopressor agents result in worsening organ dysfunction or needing further full support to include ventilation, central lines, and/or dialysis, that his dad would not want that and that they would transition to comfort/palliative care. Patient underlying quality of life and function per the son is 100% dependant on Nursing care. He understands that current state of his father's case. Overall the patient appears fatigued but is able to converse with is son, he is unable to understand much of anything that is going on at this time. He is making urine. He will be covered for possible infectious cause- possibly urine, will continue with crystalloid infusion if needed following PRBC transfusions. Will follow his BMP q6 hours for renal indices as well as electrolytes. WBC elevated with increase in NLR and CRP. PCT is miniimally elevated and lactate is elevated at 4.4. Will send TSH as well as Random Cortisol. Patient is on BB and MARQUEZ inhibitor at home, and it is possible that with his worsening renal function that this may also be playing a role. He currently is not lila cardiac, but could consider dose of glucagon for BB toxicity. Allergies Allergy/AdvReac Type Severity Reaction Status Date / Time codeine AdvReac Unknown N/V Verified 08/18/22 17:24 Home Medications Medication Instructions Recorded Confirmed Type acetaminophen 325 mg tablet 650 mg PO Q6 PRN Pain 08/18/22 08/18/22 History (Tylenol) allopurinol 300 mg tablet 300 mg PO DAILY 08/18/22 08/18/22 History atorvastatin 20 mg tablet 20 mg PO DAILY 08/18/22 08/18/22 History azelastine 137 mcg (0.1 %) nasal 2 spray intranasal BID 08/18/22 08/18/22 History spray aerosol duloxetine 30 mg capsule,delayed 30 mg PO DAILY 08/18/22 08/18/22 History release dutasteride 0.5 mg capsule 0.5 mg PO DAILY 08/18/22 08/18/22 History fluticasone propionate 50 2 spray intranasal DAILY 08/18/22 08/18/22 History mcg/actuation nasal spray,suspension furosemide 20 mg tablet 20 mg PO QAM 08/18/22 08/18/22 History lisinopril 2.5 mg tablet 2.5 mg PO DAILY 08/18/22 08/18/22 History loratadine 10 mg tablet 10 mg PO HS 08/18/22 08/18/22 History magnesium oxide 400 mg (241.3 mg 400 mg PO DAILY 08/18/22 08/18/22 History magnesium) tablet melatonin 10 mg tablet 10 mg PO HS PRN Sleep 08/18/22 08/18/22 History metoprolol succinate 25 mg 25 mg PO DAILY 08/18/22 08/18/22 History tablet,extended release 24 hr montelukast 10 mg tablet 10 mg PO QPM 08/18/22 08/18/22 History efqpsixk-rys-ftawx acid 0.4 1 tab PO DAILY 08/18/22 08/18/22 History mg-lycopene 300 mcg-lutein 250 mcg tablet (Centrum Silver) neomycin-bacitracn Zn-polymyxn 3.5 1 applic topical DIRECTED PRN 08/18/22 08/18/22 History mg-400 unit-5,000 unit top oint .wounds pkt (Triple Antibiotic) pantoprazole 20 mg tablet,delayed 20 mg PO DAILY 08/18/22 08/18/22 History release potassium chloride 10 mEq 20 meq PO BID 08/18/22 08/18/22 History capsule,extended release rivaroxaban 15 mg tablet (Xarelto) 15 mg PO QPM 08/18/22 08/18/22 History tamsulosin 0.4 mg capsule 0.4 mg PO HS 08/18/22 08/18/22 History Patient History Medical History BPH w urinary obs/LUTS Chronic systolic (congestive) heart failure Complex sleep apnea syndrome Frequent falls History of CVA (cerebrovascular accident) Hypercholesterolemia Hypertension Mitral regurgitation Permanent atrial fibrillation Pseudomonas septicemia Pseudomonas urinary tract infection Right cataract Stage 3a chronic kidney disease Surgical History History of ankle surgery History of dental surgery Status post implantation of automatic cardioverter/defibrillator (AICD) Family History Uncle Diabetes Father Stroke Nephrolithiasis Grandfather (Paternal) Stroke Other Hypertension Myocardial infarction Denies family history of Ovarian cancer Prostate cancer Breast cancer Lung cancer Colorectal cancer Social History Smoking Status: Never smoker Tobacco Type: Cigarettes Second Hand Exposure: No; Hx Alcohol Use: Yes (At most once a week ) Alcohol type: beer Alcohol Intake Frequency: Monthly or Less Hx Substance Use: No Preferred Language: Greenlandic Visual Impairment: Limited Hearing Ability: Normal marital status: Current Living Situation: Spouse current occupational status: retired How many Children do You have: 3 Feels Safe at Home: Yes Childhood Exposure to Second-Hand Smoke: No caffeine: Yes Dental Care, Regularly: Yes Physical Activity Frequency: Does not Exercise Seatbelt Use: always Sunscreen Use: Yes Assistive Devices: Hospital Bed and Wheelchair Review of Systems Review of Systems: REVIEW OF SYSTEMS: unable to review secondary to patient mental status - ROS as above per son in HPI Physical Exam Physical Exam: PHYSICAL EXAM: General: awake, easily drifts back to sleep Head: Normocephalic, atraumatic ENT: PERRLA, EOMI, no pharyngeal exudate, mucous membranes dry Neuro: AAO x 1, speech clear, strength intact bilaterally 4/5, residual weakness noted from previous CVA Chest: equal rise and fall of the chest, decreased in bases, on room air Cardiac: irregular rate and rhythm, telemetry reviewed- afib no ectopy, skin warm dry, cap refill <3 seconds, peripheral pulses +2 no JVD, grade II systolic murmur, pacemaker in place, no JVD, no edema GI: NABS x 4 quadrants, soft, nontender to palpation, no rebound, guarding or tenderness : Sandoval to gravity draining dark rajni urine Skin: bruising to lower extremities, multiple areas of shear injuries to left shoulder and scapula, pressure ulcerations to sacrum and spine. Results & Data Results & Data Vital Signs (Past 12 Hours) Vital Signs Temp Pulse Pulse Resp BP BP Pulse Ox 08/18/22 20:31 91 H 18 110/75 95 08/18/22 20:26 100 H 22 94/66 L 95 08/18/22 20:16 88 22 84/55 L 98 08/18/22 20:01 36.6 C 100 H 24 94/61 L 98 08/18/22 20:00 36.6 C 85 24 94/61 L 98 08/18/22 19:45 36.6 C 96 H 24 95/52 L 97 03/19/23 19:31 85 25 H 87/52 L 98 08/18/22 19:25 89 24 88/57 L 96 08/18/22 19:00 84 23 92/63 L 100 08/18/22 18:45 92 H 26 H 96/58 L 100 08/18/22 18:40 84 25 H 96/57 L 100 08/18/22 18:30 85 27 H 86/51 L 100 08/18/22 18:15 91 H 20 73/54 L 100 08/18/22 18:00 85 22 82/54 L 100 08/18/22 17:30 90 23 87/56 L 100 08/18/22 17:15 82 24 86/59 L 100 08/18/22 17:45 94 H 23 80/51 L 100 08/18/22 17:02 85 29 H 81/56 L 100 08/18/22 16:56 92 H 08/18/22 16:47 91 H 26 H 82/51 L 100 08/18/22 16:30 86 30 H 85/59 L 100 08/18/22 16:15 72 27 H 78/50 L 98 08/18/22 16:00 83 25 H 83/54 L 99 08/18/22 15:45 92 H 25 H 90/53 L 100 08/18/22 15:30 80 28 H 82/61 L 100 08/18/22 15:20 08/18/22 14:38 08/18/22 15:15 68 26 H 81/47 L 100 08/18/22 15:06 36.8 C 74 20 70/43 L 100 O2 Del Method 08/18/22 20:31 08/18/22 20:26 08/18/22 20:16 08/18/22 20:01 Room Air 08/18/22 20:00 08/18/22 19:45 Room Air 08/18/22 19:31 Room Air 08/18/22 19:25 08/18/22 19:00 Room Air 08/18/22 18:45 Room Air 08/18/22 18:40 Room Air 08/18/22 18:30 Room Air 08/18/22 18:15 Room Air 08/18/22 18:00 Room Air 08/18/22 17:30 Room Air 08/18/22 17:15 Room Air 03/19/23 17:45 Room Air 08/18/22 17:02 Room Air 08/18/22 16:56 08/18/22 16:47 Room Air 08/18/22 16:30 Room Air 08/18/22 16:15 Room Air 08/18/22 16:00 Room Air 08/18/22 15:45 Room Air 08/18/22 15:30 Room Air 08/18/22 15:20 Room Air 08/18/22 14:38 Room Air 08/18/22 15:15 Room Air 08/18/22 15:06 Room Air Laboratory Results Laboratory Results - last 24 hr 08/18/22 08/18/22 08/18/22 14:40 14:40 14:40 WBC 14.03 H RBC 2.54 L Hgb 7.8 L POC Hgb Hct 23.0 L POC Hct MCV 90.6 MCH 30.7 MCHC 33.9 RDW Std Deviation 54.0 H RDW Coeff of Cay[place] 16.3 H Plt Count 111 L MPV 10.0 Immature Gran % (Auto) 0.6 Neut % (Auto) 82.4 Lymph % (Auto) 6.8 [place] % (Auto) 10.0 Eos % (Auto) 0.1 Baso % (Auto) 0.1 Reticulocyte % (Auto) 1.9 Neut # (Auto) 11.57 H Lymph # (Auto) 0.95 L [place] # (Auto) 1.40 H Eos # (Auto) 0.01 Baso # (Auto) 0.01 Reticulocyte # 0.05 Immature Gran # (Auto) 0.09 Platelet Estimate Decreased L Ovalocytes 1+ Echinocytes 2+ POC Sodium Sodium 126 L POC Potassium Potassium 4.6 POC Chloride Chloride 100 Carbon Dioxide 19 L POC Total CO2 Anion Gap 7 POC Anion Gap POC BUN BUN 24 H Creatinine 1.67 H POC Creatinine Est Cr Clr Drug Dosing 30.6 Est GFR ( Amer) 42.9 Est GFR (Non-Af Amer) 37.0 BUN/Creatinine Ratio 14.4 Glucose 165 H POC Glucose (other) Lactate Calcium 8.5 POC Ioniz Calcium Bernardino Magnesium 2.0 Total Bilirubin 0.9 Direct Bilirubin 0.4 H AST 28 ALT 25 Alkaline Phosphatase 83 Troponin I High Sens 22.7 H C-Reactive Protein Total Protein 4.6 L Albumin 2.3 L Procalcitonin 0.57 H TSH Random Cortisol Urine Color Urine Appearance Urine pH Ur Specific [place] Urine Protein Urine Glucose (UA) Urine Ketones Urine Blood Urine Nitrite Urine Bilirubin Urine Urobilinogen Ur Leukocyte Esterase Urine WBC (Auto) Urine RBC (Auto) U Hyaline Cast (Auto) U Epithel Cells (Auto) Urine Bacteria (Auto) Urine Yeast SARS-CoV-2 (PCR) Influenza Type A (PCR) Influenza Type B (PCR) RSV (RT-PCR) Blood Type Blood Type Recheck Antibody Screen Crossmatch 08/18/22 08/18/22 08/18/22 14:40 14:40 14:40 WBC RBC Hgb POC Hgb Hct POC Hct MCV MCH MCHC RDW Std Deviation RDW Coeff of [place] Plt Count MPV Immature Gran % (Auto) Neut % (Auto) Lymph % (Auto) [place] % (Auto) Eos % (Auto) Baso % (Auto) Reticulocyte % (Auto) Neut # (Auto) Lymph # (Auto) [place] # (Auto) Eos # (Auto) Baso # (Auto) Reticulocyte # Immature Gran # (Auto) Platelet Estimate Ovalocytes Echinocytes POC Sodium Sodium POC Potassium Potassium POC Chloride Chloride Carbon Dioxide POC Total CO2 Anion Gap POC Anion Gap POC BUN BUN Creatinine POC Creatinine Est Cr Clr Drug Dosing Est GFR ( Amer) Est GFR (Non-Af Amer) BUN/Creatinine Ratio Glucose POC Glucose (other) Lactate Calcium POC Ioniz Calcium Bernardino Magnesium Total Bilirubin Direct Bilirubin AST ALT Alkaline Phosphatase Troponin I High Sens C-Reactive Protein 11.51 H Total Protein Albumin Procalcitonin TSH Pending Random Cortisol Pending Urine Color Urine Appearance Urine pH Ur Specific [place] Urine Protein Urine Glucose (UA) Urine Ketones Urine Blood Urine Nitrite Urine Bilirubin Urine Urobilinogen Ur Leukocyte Esterase Urine WBC (Auto) Urine RBC (Auto) U Hyaline Cast (Auto) U Epithel Cells (Auto) Urine Bacteria (Auto) Urine Yeast SARS-CoV-2 (PCR) Influenza Type A (PCR) Influenza Type B (PCR) RSV (RT-PCR) Blood Type Blood Type Recheck Antibody Screen Crossmatch 08/18/22 08/18/22 08/18/22 15:07 15:21 15:39 WBC RBC Hgb POC Hgb 8.8 L Hct POC Hct 26 L MCV MCH MCHC RDW Std Deviation RDW Coeff of [place]den Plt Count MPV Immature Gran % (Auto) Neut % (Auto) Lymph % (Auto) [place] % (Auto) Eos % (Auto) Baso % (Auto) Reticulocyte % (Auto) Neut # (Auto) Lymph # (Auto) [place] # (Auto) Eos # (Auto) Baso # (Auto) Reticulocyte # Immature Gran # (Auto) Platelet Estimate Ovalocytes Echinocytes POC Sodium 128 L Sodium POC Potassium 4.6 Potassium POC Chloride 99 L Chloride Carbon Dioxide POC Total CO2 17 L Anion Gap POC Anion Gap 18.0 POC BUN 21 H BUN Creatinine POC Creatinine 1.8 H Est Cr Clr Drug Dosing Est GFR ( Amer) Est GFR (Non-Af Amer) BUN/Creatinine Ratio Glucose POC Glucose (other) 133 H Lactate 4.7 H* Calcium POC Ioniz Calcium Bernardino 1.24 Magnesium Total Bilirubin Direct Bilirubin AST ALT Alkaline Phosphatase Troponin I High Sens C-Reactive Protein Total Protein Albumin Procalcitonin TSH Random Cortisol Urine Color Urine Appearance Urine pH Ur Specific [place] Urine Protein Urine Glucose (UA) Urine Ketones Urine Blood Urine Nitrite Urine Bilirubin Urine Urobilinogen Ur Leukocyte Esterase Urine WBC (Auto) Urine RBC (Auto) U Hyaline Cast (Auto) U Epithel Cells (Auto) Urine Bacteria (Auto) Urine Yeast SARS-CoV-2 (PCR) Influenza Type A (PCR) Influenza Type B (PCR) RSV (RT-PCR) Blood Type O Positive Blood Type Recheck Antibody Screen NEGATIVE Crossmatch See Detail 08/18/22 08/18/22 08/18/22 16:17 17:16 17:16 WBC RBC Hgb POC Hgb Hct POC Hct MCV MCH MCHC RDW Std Deviation RDW Coeff of [place] Plt Count MPV Immature Gran % (Auto) Neut % (Auto) Lymph % (Auto) [place] % (Auto) Eos % (Auto) Baso % (Auto) Reticulocyte % (Auto) Neut # (Auto) Lymph # (Auto) [place] # (Auto) Eos # (Auto) Baso # (Auto) Reticulocyte # Immature Gran # (Auto) Platelet Estimate Ovalocytes Echinocytes POC Sodium Sodium POC Potassium Potassium POC Chloride Chloride Carbon Dioxide POC Total CO2 Anion Gap POC Anion Gap POC BUN BUN Creatinine POC Creatinine Est Cr Clr Drug Dosing Est GFR ( Amer) Est GFR (Non-Af Amer) BUN/Creatinine Ratio Glucose POC Glucose (other) Lactate 4.4 H* Calcium POC Ioniz Calcium Bernardino Magnesium Total Bilirubin Direct Bilirubin AST ALT Alkaline Phosphatase Troponin I High Sens 20.8 H C-Reactive Protein Total Protein Albumin Procalcitonin TSH Random Cortisol Urine Color Dark Yellow Urine Appearance Turbid A Urine pH 5.0 Ur Specific [place] 1.013 Urine Protein 1+ H Urine Glucose (UA) Negative Urine Ketones Negative Urine Blood 2+ H Urine Nitrite Negative Urine Bilirubin Negative Urine Urobilinogen Negative Ur Leukocyte Esterase 3+ H Urine WBC (Auto) >30 H Urine RBC (Auto) 10-30 H U Hyaline Cast (Auto) 0 U Epithel Cells (Auto) 20-30 H Urine Bacteria (Auto) 4+ H Urine Yeast Not Reportable SARS-CoV-2 (PCR) Influenza Type A (PCR) Influenza Type B (PCR) RSV (RT-PCR) Blood Type Blood Type Recheck Antibody Screen Crossmatch 08/18/22 08/18/22 08/18/22 18:37 18:57 Unknown WBC RBC Hgb 8.4 L POC Hgb Hct POC Hct MCV MCH MCHC RDW Std Deviation RDW Coeff of [place] Plt Count MPV Immature Gran % (Auto) Neut % (Auto) Lymph % (Auto) [place] % (Auto) Eos % (Auto) Baso % (Auto) Reticulocyte % (Auto) Neut # (Auto) Lymph # (Auto) [place] # (Auto) Eos # (Auto) Baso # (Auto) Reticulocyte # Immature Gran # (Auto) Platelet Estimate Ovalocytes Echinocytes POC Sodium Sodium POC Potassium Potassium POC Chloride Chloride Carbon Dioxide POC Total CO2 Anion Gap POC Anion Gap POC BUN BUN Creatinine POC Creatinine Est Cr Clr Drug Dosing Est GFR ( Amer) Est GFR (Non-Af Amer) BUN/Creatinine Ratio Glucose POC Glucose (other) Lactate Calcium POC Ioniz Calcium Bernardino Magnesium Total Bilirubin Direct Bilirubin AST ALT Alkaline Phosphatase Troponin I High Sens C-Reactive Protein Total Protein Albumin Procalcitonin TSH Random Cortisol Urine Color Urine Appearance Urine pH Ur Specific [place] Urine Protein Urine Glucose (UA) Urine Ketones Urine Blood Urine Nitrite Urine Bilirubin Urine Urobilinogen Ur Leukocyte Esterase Urine WBC (Auto) Urine RBC (Auto) U Hyaline Cast (Auto) U Epithel Cells (Auto) Urine Bacteria (Auto) Urine Yeast SARS-CoV-2 (PCR) NEGATIVE Influenza Type A (PCR) Negative Influenza Type B (PCR) Negative RSV (RT-PCR) Negative Blood Type Blood Type Recheck O Positive Antibody Screen Crossmatch Diagnostic Findings Chest X-Ray 08/18/22 14:38 XR chest 1V portable HISTORY: Sepsis COMPARISON: Chest 06/23/2022. FINDINGS: No pneumothorax. No pleural effusions. There is a left-sided single lead pacemaker/defibrillator again noted. No focal lung consolidations to suggest a pneumonia. No evidence for pulmonary edema. The cardiac silhouette remains mildly enlarged. IMPRESSION: No significant change compared to the prior study. No acute process. ACT 112: Negative or not required by law. Electronically signed by: Justus Garza M.D. 08/18/2022 3:[address] 08/18/22 15:[address] DOSE: 614.27 mGy.cm HISTORY: confused TECHNIQUE: Multiaxial CT images of the head were performed without the use of intravenous contrast. Automated exposure control was utilized for this study. A dose lowering technique was utilized adhering to the principles of ALARA. Comparison: Head CT 06/23/2022. Findings: The paranasal sinuses and mastoid air cells are clear. The calvarium and skull base are intact. Atrophy and microvascular ischemic changes are again noted. 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 No acute infarct identified. There is no mass or midline shift. 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 Decrease in size in the 3 mm extra- axial hyperdensity within the right frontal lobe. Impression: 1. Continued decrease in size in the now 3 mm extra-axial hyperdensity within the right frontal region. This favors chronic pleural thickening rather than an acute on chronic subdural hematoma given the interval improvement. 2. No significant change in the right frontal temporal encephalomalacia suggesting an old infarct. ACT 112: Negative or not required by law. Electronically signed by: Justus Garza M.D. 08/18/2022 7:59 PM Medications Administered Lactated Ringer's (Lr) 1,000 mls @ 125 mls/hr IV .Q8H HERBIE Stop: 09/17/22 16:29 Last Admin: 08/18/22 16:27 Dose: 125 mls/hr Documented By: Norepinephrine Bitartrate (Levophed/D5w) 4 mg in 250 mls @ 12.188 mls/hr IV .[id number] HERBIE; Protocol Stop: 09/17/22 18:29 Last Titration: 08/18/22 18:56 Dose: 0.05 mcg/kg/min, 12.2 mls/hr Documented By: Co-signed By: senior software test engineer: 08/18/22 18:30 Dose: 0.05 mcg/kg/min, 12.2 mls/hr Documented By: AB Co-signed By: Discontinued Medications Sodium Chloride (Nss 1000ml) 1,000 mls @ 999 mls/hr IV .Q1H1M HERBIE Stop: 08/18/22 15:45 Last Infusion: 08/18/22 15:58 Dose: 0 mls/hr Documented By: Admin: 08/18/22 14:51 Dose: 999 mls/hr Documented By: FLAKITA Sodium Chloride (Nss 1000ml) 1,000 mls @ 999 mls/hr IV .Q1H1M ONE Stop: 08/18/22 16:08 Last Infusion: 08/18/22 16:22 Dose: 0 mls/hr Documented By: Admin: 08/18/22 15:21 Dose: 999 mls/hr Documented By: Cefepime HCl (Maxipime) 2,000 mg in 20 mls @ 5 mls/min IV NOW STA; Protocol Stop: 08/18/22 15:45 Last Admin: 08/18/22 15:46 Dose: 5 mls/min Documented By: KELLEN Lactated Ringer's (Lr) 1,000 mls @ 125 mls/hr IV .Q8H HERBIE Stop: 09/17/22 18:29 Last Admin: 08/18/22 18:36 Dose: 125 mls/hr Documented By: Miscellaneous (Stat Iv Infusion Titration Per Protocol) 1 each N/A NOW STA Stop: 08/18/22 18:25 Last Admin: 08/18/22 18:44 Dose: Not Given Documented By: AB ECG Additional Comments: Atrial fibrillation with a competing junctional pacemaker with premature ventricular or aberrantly conducted complexes Left axis deviation Low voltage QRS Cannot rule out Anteroseptal infarct (cited on or before 20-APR-2016) Abnormal ECG When compared with ECG of 23-JUN-2022 10:44, No significant change was found Coding Level of Care Code 70533 CRITICAL CARE 1ST 30-74M Diagnoses Hypotension I95.9 Shock R57.9 Elevated troponin R77.8 Failure to thrive JENNI (acute kidney injury) N17.9 Hyponatremia E87.1 Sacral wound S31.000A History of CVA (cerebrovascular accident) Z86.73 Complex sleep apnea syndrome G47.31 Chronic systolic (congestive) heart failure I50.22 Permanent atrial fibrillation I48.21 Hemiplegia of nondominant side, late effect of cerebrovascular disease I69.959
[2022-08-18] MEDS ORDERED: THIAMINE HCL 200 MG in SODIUM CHLORIDE 0.9% 50 ML IV STA (21:28)
[2022-08-18] MEDS ORDERED: GLUCAGON 5 MG in SYRINGE 0 ML IV ONE (21:30)
[2022-08-18 22:16] LABS: iSTAT Allen Test Fail; iSTAT Arterial Blood Gas HCO3 14 meg/L (19-24); iSTAT Arterial Blood Gas pCO2 23 mmHg (35-46); iSTAT Arterial Blood Gas pO2 102 mmHg (80-95); iSTAT Carbon Dioxide 15 mmol/L (24-31); iSTAT Site R Radial
[2022-08-19 00:56] LABS: Albumin Globulin Ratio 0.9 (0.9-2); Albumin Level 2.2 gm/dl (3.4-5.0); Bilirubin,Total 1.3 mg/dl (0.2-1.0); Calcium 8.1 mg/dl (8.5-10.1); Est GFR (African American) 62.7 ml/min; Est GFR (Non-African American) 54.1 ml/min; Globulin 2.5 gm/dl (2.5-4.0); Potassium 4.7 mmol/L (3.5-5.1); Total Protein 4.7 gm/dl (6.0-8.3)
[2022-08-19 01:03] LABS: Troponin I High Sensitivity 23.7 pg/ml (0-20)
[2022-08-19] MEDS: LACTATED RINGER'S 1,000 ML IV SCH ×2 (02:19→11:38)
[2022-08-19 05:09] LABS: BUN Creatinine Ratio 17.5 (10-20); C Reactive Protein 12.82 mg/dl (0-0.5); Calcium 8.1 mg/dl (8.5-10.1); Creatinine Clr Calc Pharmacy 38.7 ml/min; Est GFR (African American) 60.3 ml/min; Potassium 4.3 mmol/L (3.5-5.1)
[2022-08-19 05:11] LABS: Basophils # (auto) 0.01 K/uL (0-0.2); Basophils % (auto) 0.1 %; Eosinophils # (auto) 0.03 K/uL (0-0.50); Eosinophils % (auto) 0.2 %; Hematocrit (blood only) 29.4 % (42.0-52.0); Hemoglobin 9.7 g/dl (14.0-18.0); Immature Granulocytes # (auto) 0.13 K/uL (0.01-0.20); Lymphocytes % (auto) 9.1 %; Mean Corpuscular Hemoglobin 29.5 pg (25.0-34.0); Mean Corpuscular Volume 89.4 fL (80.0-100.0); Mean Platelet Volume 10.8 fL (9.4-12.4); Monocytes # (auto) 1.32 K/uL (0.11-0.59); Neutrophils # (auto) 10.47 K/uL (1.40-6.50); Neutrophils % (auto) 79.6 %; Platelet Count 110 K/uL (130-400); RDW Coefficient of Variation 15.6 % (11.5-14.5); RDW Standard Deviation 50.3 fL (36.4-46.3); Red Blood Count 3.29 M/uL (4.70-6.10); White Blood Count 13.16 K/ul (4.8-10.8)
[2022-08-19 05:44] LABS: A calco-baum cmplx NotReported Not Detected (NotDetected); Bact fragilis Not Reported Not Detected (NotDetected); C auris Not Reported Not Detected (NotDetected); Calbicans Not Reported Not Detected (NotDetected); Candida glabrata Not Reported Not Detected (NotDetected); Candida krusei Not Reported Not Detected (NotDetected); Cneoformans/gatti Not Reported Not Detected (NotDetected); Cparapsilosis Not Reported Not Detected (NotDetected); Ctropicalis Not Reported Not Detected (NotDetected); E cloacae compx Not Reported Not Detected (NotDetected); Efaecalis Not Reported Not Detected (NotDetected); Efaecium Not Reported Not Detected (NotDetected); Enterobacterales Not Reported Not Detected (NotDetected); Escherichia coli Not Reported Not Detected (NotDetected); H influenzae Not Reported Not Detected (NotDetected); K aerogenes Not Reported Not Detected (NotDetected); Koxytoca Not Reported Not Detected (NotDetected); Kpneumoniae grp Not Reported Not Detected (NotDetected); Lmonocyt Not Reported Not Detected (NotDetected); N meningitidis Not Reported Not Detected (NotDetected); P aeruginosa Not Reported Not Detected (NotDetected); Proteus spp Not Reported Not Detected (NotDetected); Salmonella spp Not Reported Not Detected (NotDetected); Smarcescens Not Reported Not Detected (NotDetected); Staph lugdunensis Not Reported Not Detected (NotDetected); Staph spp. Not Reported Not Detected (NotDetected); Staphaureus Not Reported Not Detected (NotDetected); Staphepi Not Reported Not Detected (NotDetected); Stenmaltophilia Not Reported Not Detected (NotDetected); Strep agal(GrpB) Not Reported Not Detected (NotDetected); Strep pneum Not Reported Not Detected (NotDetected); Strep pyog (GrpA) Not Reported Not Detected (NotDetected); Strep spp Not Reported DETECTED (NotDetected)
[2022-08-19] MEDS ORDERED: CEFEPIME 2,000 MG in SYRINGE 0 ML IV SCH (06:00)
[2022-08-19 06:59] LABS: Streptococcus spp DETECTED (NotDetected)
--- NOTE | 2022-08-19 07:19 | Hospitalist Progress Note ---
Date of Service August 19, 2022 Assessment & Plan (1) Gram-positive bacteremia: Plan: 86-year-old man who presents with confusion, weakness, and hypotension. Admitted to the hospital for management of hypotension requiring vasopressor support in the ICU. Sepsis bacteremia/leukocytosis -Patient presented with leukocytosis, lactate 3.0, Pro-Carlos 1.23. Empiric IV cefepime started on admission. Source unknown. -No dysuria on admission. Abdominal exam nontender. CXR negative for acute process/pulmonary infiltrate. No diarrhea. No evidence of cellulitis on skin exam. -Started on IV cefepime empirically. Now discontinued in favor of IV ceftriaxone. -Blood cultures resulted 3/4 gram-positive cocci in chains. Urine culture results pending. -Echocardiogram: Normal LV systolic function, moderate LA dilation, moderate to severe RA dilation, mild AV sclerosis without significant stenosis, mild to moderate AR, mild MR, moderate TR, mild aortic root dilatation. No evidence of endocarditis. -Urine culture: Alpha strep not Enterococcus >100,000. * Currently admitted to ICU. Appreciate recs. * IV ceftriaxone 2 g every 24 hours. * Urine cultures pending. * Trend CBC. Hypotension/shock -Profoundly hypotensive on admission. Received IV NSS bolus x2 L. -Admitted to the ICU for vasopressor support. * Levophed as needed to maintain MAP >65. Wean as tolerated. * Holding home lisinopril, furosemide, and metoprolol. JENNI -Creatinine 1.67 on admission. Improving. * Continue mIVF * Holding home lisinopril, as above. * Trend Cr Delirium/dementia/failure to thrive -Patient has history of prior stroke. However, CT head on admission negative for acute cerebrovascular process. Suspect this is patient's baseline. -Vitamin B12, folate serum levels within normal limits. -P.o. intake poor. * IV thiamine, mIVF, for decreased p.o. intake. Nutritional evaluation in the a.m. * Frequent reorientation * Will likely need to have goals of care discussion with family. Depression -Takes duloxetine 30 mg daily at home. Anemia -S/p pRBC x1 unit on admission. * Trend CBC. Transfuse if needed to hemoglobin >8. Atrial fibrillation -Rate controlled at this time. Chronically anticoagulated with Xarelto. * Holding Xarelto Code: DNR/DNI Dispo: ICU FEN/GI: Regular, LR DVT Prophylaxis: SQ heparin 5000 units every 12 hours PT/OT: Yes Consults: None (2) Shock: (3) JENNI (acute kidney injury): (4) Anemia: (5) Failure to thrive: (6) Permanent atrial fibrillation: (7) Stage 3a chronic kidney disease: Admission and Anticipated Discharge Date Admission Date: August 18, 2022 Supervising Physician Co-Signing Physician Notes 86-year-old male with a complex medical history presenting with septic shock, admitted to ICU, placed on empiric antibiotics for sepsis with hypotension requiring pressors. Antihypertensives on hold. JENNI improved. Volume resuscitated. Patient alert, not oriented to place and time. Marks catheter in place. Blood culture + gram-positive cocci in chains, urine culture positive alpha strep. I personally examined the patient and verified all poon points of history and exam, discussed case, and agree with decision making and plan documented by Dr. Matson. Subjective No acute events overnight. Patient is lying in bed comfortably at bedside. He is oriented only to self. When asked where he is, he replies that he is not at all to the hospital. When asked who the current president is, he replies "Clay Stover." He is unable to answer when asked what year it is. Nursing unavailable at the time as this was during ICU rounds. Review of Systems Review of Systems: All systems reviewed & are unremarkable except as noted in HPI & below Physical Exam Physical Exam: General: No acute distress HEENT: PERRLA. Normal conjunctiva, anicteric sclera. Oropharynx normal. Respiratory: Normal respiratory effort, CTABL. Talking in full sentences. Cardiovascular: RRR without murmurs, gallops, or rubs. No edema. GI: Soft abdomen with normal bowel sounds heard on auscultation. Nontender x4 quadrants Skin: Multiple excoriations and bruises in various stages of healing across both forearms. Bilateral pubic crease covered with barrier cream. Some mildly erythematous, raised red patches are seen. Neuro: Alert, oriented to self only. Results & Data Results & Data Vital Signs (Past 12 Hours) Vital Signs Temp Pulse Pulse Resp BP BP Pulse Ox 08/19/22 04:30 91 H 28 H 100 08/19/22 04:15 90 25 H 08/19/22 04:15 91/55 L 08/19/22 04:00 36.6 C 95 H 21 85 L 08/19/22 03:30 91 H 16 91 08/19/22 03:00 88 17 89 L 08/19/22 03:00 90/53 L 08/19/22 02:30 85 20 98 08/19/22 02:00 96 H 19 100 08/19/22 02:00 100/61 08/19/22 01:31 81 20 95 08/19/22 01:00 83 17 95 08/19/22 01:00 88/55 L 08/19/22 02:10 92 H 22 100 08/19/22 00:30 82 17 99 08/19/22 00:01 96 H 18 85 L 08/19/22 00:01 94/73 L 08/19/22 00:00 96 H 23 87 L 08/18/22 23:30 94 H 21 94 08/18/22 23:00 103 H 21 78 L 08/18/22 23:00 99/66 L 08/18/22 22:32 96 H 29 H 96 08/18/22 22:32 94/61 L 08/18/22 22:30 94 H 28 H 91 08/18/22 22:30 88/68 L 08/18/22 22:35 96 H 24 100 08/18/22 22:15 84 23 87 L 08/18/22 22:06 101 H 22 88 L 08/18/22 22:06 98/69 L 08/18/22 22:00 89 28 H 86 L 08/18/22 21:45 75 22 92 08/18/22 21:30 75 35 H 80 L 08/18/22 21:30 89/62 L 08/18/22 21:26 81 25 H 89 L 08/18/22 21:26 96/55 L 08/18/22 21:19 96 H 33 H 95 08/18/22 20:30 88 19 100 08/18/22 20:30 110/75 08/18/22 23:10 36.6 C 133 H 22 99/66 L 97 08/18/22 21:00 08/18/22 20:35 89 24 72/31 L 92 08/18/22 21:14 35.3 C L 90 22 72/43 L 95 08/18/22 20:31 91 H 18 110/75 95 03/19/23 20:26 100 H 22 94/66 L 95 08/18/22 20:16 88 22 84/55 L 98 08/18/22 20:01 36.6 C 100 H 24 94/61 L 98 08/18/22 20:00 36.6 C 85 24 94/61 L 98 08/18/22 19:45 36.6 C 96 H 24 95/52 L 97 08/18/22 19:31 85 25 H 87/52 L 98 08/18/22 19:25 89 24 88/57 L 96 O2 Del Method O2 Flow Rate FiO2 08/19/22 04:30 08/19/22 04:15 08/19/22 04:15 08/19/22 04:00 08/19/22 03:30 08/19/22 03:00 08/19/22 03:00 08/19/22 02:30 08/19/22 02:00 08/19/22 02:00 08/19/22 01:31 08/19/22 01:00 08/19/22 01:00 08/19/22 02:10 21 08/19/22 00:30 08/19/22 00:01 08/19/22 00:01 08/19/22 00:00 08/18/22 23:30 08/18/22 23:00 08/18/22 23:00 08/18/22 22:32 08/18/22 22:32 08/18/22 22:30 08/18/22 22:30 08/18/22 22:35 21 08/18/22 22:15 08/18/22 22:06 08/18/22 22:06 08/18/22 22:00 08/18/22 21:45 08/18/22 21:30 08/18/22 21:30 08/18/22 21:26 08/18/22 21:26 08/18/22 21:19 08/18/22 20:30 08/18/22 20:30 08/18/22 23:10 08/18/22 21:00 Room Air 08/18/22 20:35 Nasal Cannula 2 08/18/22 21:14 Room Air 08/18/22 20:31 08/18/22 20:26 08/18/22 20:16 08/18/22 20:01 Room Air 08/18/22 20:00 08/18/22 19:45 Room Air 08/18/22 19:31 Room Air 08/18/22 19:25 Resident Activity Tracking Resident Involvement: Resident Care Provided Care Provided: Adult Hospital Medicine
--- NOTE | 2022-08-19 07:34 | Critical Care Progress Note ---
Date of Service August 19, 2022 Assessment & Plan (1) Gram-positive bacteremia: (2) Shock: (3) Elevated troponin: (4) Malnutrition: (5) Failure to thrive: (6) JENNI (acute kidney injury): (7) Permanent atrial fibrillation: Plan Reason Critically Ill: 86 YOM resident of [facility], presented to EMD hypotensive and lethargic in setting of reported decrease oral intake over the past 2-3 days. Patient adequatley volume resuscitated with crystalloid and PRBC transfusion. Currently requiring low dose Levophed for hemodynamic support. He has no evidence of acute decompensated HF on exam and has handled the volume received well to this point. Continue with Broad spectrum ABX coverage and continue to support and search for reversible causes of his hypotension Neuro -Bed bound chronically ill, hx of CVA, dementia/depression, hx of SDH (2021) - Continue supportive care, frequent re-orientation and maintain normal sleep and wake cycles - Continue with Duloxetene Cardiac -Shock, Permanent afib, PPM (VVI 40), PVC, HTN, CAD, ICM - Shock undifferentiated at this time- likely multifactorial to include hypovolemic and sepsis - Random Cortisol is 21, TSH 1.95 -A-fib Currently rate controlled He is chronically anticoagulated with Xarelto -currently on hold -History of hypertension - Hold BB while on vasopressors - Hold ANKUR with JENNI Respiratory -GA - no acute needs at this time and no evidence of pulmonary congestion currently - continue with nightly BiPAP GI -Decrease oral intake -Supportive care at this time- nutritional evaluation in morning RENAL/LYTES -JENNI, Hyponatremia, AGAPmetabolic acidosis - JENNI in the setting of shock- see above - Maintain MAP >65 - avoid further nephrotoxic medications - Add Thiamine for decrease enteral intake -BPH with LUTS - Continue sandoval- hold alpha blockers while hypotensive ENDO - - Random Cortisol and TSH normal - Add Dextrose sticks- goal BG <180mg/dl HEME -Anemia- normocytic/normochromic - No evidence of acute blood loss anemia- AOCD vs. nutritional deficiency - Workup initiated by admitting medicine team, s/p 1 unit PRBC - Transfuse for HGB >8.0 or symptomatic --Thrombocytopenia Patient had bouts of thrombocytopenia even in the past Continue to monitor ID -Sepsis with gram-positive bacteremia - PCT 0.57 --> 1.23 - UA - with LE+, NI (-) and 4+ bacteria- continue cefepime- MRSA negative - CXR does not show any pulmonary infiltrate - Continue with antibiotic - DNR/DNI --Prophylaxis VTE: Heparin GI: None Lines: Peripheral Diet: Cardiac Plan: In/out: +3.8 L, urine output 975 Patient still requiring low-dose of Levophed. We will try to wean it off as soon as possible Hold beta-blockers/Blood pressure medications Follow-up sensitivities of the blood culture, continue with cefepime I have personally spent 38 minutes of critical care time in the direct managemen t of this patient. This is a life/limb threatening event. This includes time spent evaluating patie nt, direct bedside care, chart review, placing orders, interpretation of diagnostic studies, discussion with consultants, patient, and family members, as well as other required patient management activities. This time is exclusive of all separately billable procedures, and teaching time and separate from and in addition to any other critical care service time. Please note the above document was generated using voice recognition software. It may contain grammatical, syntax or spelling errors. Admission and Anticipated Discharge Date Admission Date: August 18, 2022 Subjective Patient seen and examined at bedside. No acute distress, no adverse events overnight Patient is oriented to self answering questions appropriately His map was 77 at the time of examination while on Levophed 0.04 Denies any headache, no nausea, no vomiting Does complain of nonspecific chest pain. Poor appetite No abdominal pain. Review of Systems Review of Systems: All systems reviewed & are unremarkable except as noted in Subjective Physical Exam Physical Exam: Constitutional: No acute distress HEENT: EOMI, PERRLA Respiratory system: Decreased air entry bilaterally, no wheeze, rhonchi, positive crackles bilateral lower lobes CVS: S1-S2 positive, no murmurs or gallops Abdomen: Soft, nontender, nondistended, positive bowel sounds x4 Extremities: +2 pulses bilaterally radialis/ dorsalis pedis, +2 edema left upper extremity, +1 edema bilateral lower extremity, left-sided hemiplegia Neuro: Awake alert oriented to self Psych: Normal mood and affect G/U: Positive Sandoval Skin: no rashes, warm and dry Lymphatic: no cervical or axillary lymphadenopathy Results & Data Results & Data Vital Signs (Past 12 Hours) Vital Signs Temp Pulse Pulse Resp BP BP Pulse Ox 03/20/23 07:00 95 H 26 H 102/66 97 08/19/22 04:30 91 H 28 H 100 08/19/22 04:15 90 25 H 08/19/22 04:15 91/55 L 08/19/22 04:00 36.6 C 95 H 21 85 L 08/19/22 03:30 91 H 16 91 08/19/22 03:00 88 17 89 L 08/19/22 03:00 90/53 L 08/19/22 02:30 85 20 98 08/19/22 02:00 96 H 19 100 08/19/22 02:00 100/61 08/19/22 01:31 81 20 95 08/19/22 01:00 83 17 95 08/19/22 01:00 88/55 L 08/19/22 02:10 92 H 22 100 08/19/22 00:30 82 17 99 08/19/22 00:01 96 H 18 85 L 08/19/22 00:01 94/73 L 08/19/22 00:00 96 H 23 87 L 08/18/22 23:30 94 H 21 94 08/18/22 23:00 103 H 21 78 L 08/18/22 23:00 99/66 L 08/18/22 22:32 96 H 29 H 96 08/18/22 22:32 94/61 L 08/18/22 22:30 94 H 28 H 91 08/18/22 22:30 88/68 L 08/18/22 22:35 96 H 24 100 08/18/22 22:15 84 23 87 L 08/18/22 22:06 101 H 22 88 L 08/18/22 22:06 98/69 L 08/18/22 22:00 89 28 H 86 L 08/18/22 21:45 75 22 92 08/18/22 21:30 75 35 H 80 L 08/18/22 21:30 89/62 L 08/18/22 21:26 81 25 H 89 L 08/18/22 21:26 96/55 L 08/18/22 21:19 96 H 33 H 95 08/18/22 20:30 88 19 100 08/18/22 20:30 110/75 08/18/22 23:10 36.6 C 133 H 22 99/66 L 97 03/19/23 21:00 08/18/22 20:35 89 24 72/31 L 92 08/18/22 21:14 35.3 C L 90 22 72/43 L 95 08/18/22 20:31 91 H 18 110/75 95 08/18/22 20:26 100 H 22 94/66 L 95 08/18/22 20:16 88 22 84/55 L 98 08/18/22 20:01 36.6 C 100 H 24 94/61 L 98 08/18/22 20:00 36.6 C 85 24 94/61 L 98 08/18/22 19:45 36.6 C 96 H 24 95/52 L 97 O2 Del Method O2 Flow Rate FiO2 08/19/22 07:00 Room Air 08/19/22 04:30 08/19/22 04:15 08/19/22 04:15 08/19/22 04:00 08/19/22 03:30 08/19/22 03:00 08/19/22 03:00 08/19/22 02:30 08/19/22 02:00 08/19/22 02:00 08/19/22 01:31 08/19/22 01:00 08/19/22 01:00 08/19/22 02:10 21 08/19/22 00:30 08/19/22 00:01 08/19/22 00:01 08/19/22 00:00 08/18/22 23:30 08/18/22 23:00 08/18/22 23:00 08/18/22 22:32 08/18/22 22:32 08/18/22 22:30 08/18/22 22:30 08/18/22 22:35 21 08/18/22 22:15 08/18/22 22:06 08/18/22 22:06 08/18/22 22:00 08/18/22 21:45 08/18/22 21:30 08/18/22 21:30 08/18/22 21:26 08/18/22 21:26 08/18/22 21:19 08/18/22 20:30 08/18/22 20:30 08/18/22 23:10 08/18/22 21:00 Room Air 08/18/22 20:35 Nasal Cannula 2 08/18/22 21:14 Room Air 08/18/22 20:31 08/18/22 20:26 08/18/22 20:16 08/18/22 20:01 Room Air 08/18/22 20:00 08/18/22 19:45 Room Air Laboratory Results 08/19/22 04:17 08/19/22 04:17 Coding Level of Care Code 41208 CRITICAL CARE 1ST 30-74M Diagnoses Gram-positive bacteremia R78.81 Shock R57.9 Elevated troponin R77.8 Malnutrition E46 Failure to thrive JENNI (acute kidney injury) N17.9 Permanent atrial fibrillation I48.21 Time Spent (min) 38
[2022-08-19] MEDS: ICU Protocol for HYPERglycemia SCH ×4 (07:45→21:00)
[2022-08-19] MEDS: DULoxetine HCL 30 MG CAP PO SCH (08:15)
[2022-08-19] MEDS: HEPARIN SOD 5,000 UNIT/0.5 ML VIAL SQ SCH ×2 (08:16→20:59)
[2022-08-19] MEDS: THIAMINE HCL 200 MG in SODIUM CHLORIDE 0.9% 50 ML IV SCH (08:16)
[2022-08-19 08:38] LABS: Magnesium 1.8 mg/dl (1.7-2.4); Phosphorus 2.9 mg/dl (2.5-4.9)
[2022-08-19] MEDS ORDERED: MAGNESIUM OXIDE 400 MG TAB PO SCH (09:00)
--- NOTE | 2022-08-19 10:52 | Electrocardiogram Report ---
Test Reason : Blood Pressure : / mmHG Vent. Rate : 089 BPM Atrial Rate : 065 BPM P-R Int : 000 ms QRS Dur : 104 ms QT Int : 352 ms P-R-T Axes : 000 -42 071 degrees QTc Int : 428 ms Poor data quality, interpretation may be adversely affected Atrial fibrillation with premature ventricular or aberrantly conducted complexes Left axis deviation Low voltage QRS Cannot rule out Anteroseptal infarct (cited on or before 20-APR-2016) Abnormal ECG When compared with ECG of 23-JUN-2022 10:44, No significant change was found Confirmed by Romero Pereyra ([id number]) on 08/19/2022 10:52:22 AM Referred By: [facility] of Confirmed By:Refugio Pereyra
[2022-08-19] MEDS: NORMOSOL-R 1,000 ML IV SCH (11:06)
--- NOTE | 2022-08-19 11:41 | XCELERA ---
[id number]
--- NOTE | 2022-08-19 15:25 | Electrocardiogram Report ---
Test Reason : Blood Pressure : / mmHG Vent. Rate : 101 BPM Atrial Rate : 091 BPM P-R Int : 000 ms QRS Dur : 094 ms QT Int : 312 ms P-R-T Axes : 000 -55 123 degrees QTc Int : 404 ms Atrial fibrillation with PVCs versus aberrant conduction Left axis deviation Low voltage QRS Inferior infarct , age undetermined Cannot rule out Anteroseptal infarct (cited on or before 20-APR-2016) T wave abnormality, consider lateral ischemia Abnormal ECG Confirmed by Romero Pereyra ([id number]) on 08/19/2022 3:25:44 PM Referred By: [facility] Confirmed By:Refugio Pereyra
[2022-08-19] MEDS: cefTRIAXone SODIUM 2,000 MG in DEXTROSE 5% 50 ML IV SCH (17:48)
[2022-08-19] MEDS: NOREPINEPHRINE/D5W 4 MG/250 ML PLCT IV SCH (21:00)
[2022-08-20] MEDS ORDERED: LACTATED RINGER'S 250 ML IV ONE (00:06)
[2022-08-20] MEDS: NORMOSOL-R 1,000 ML IV SCH (01:17)
[2022-08-20] MEDS ORDERED: GLUCOSE 40% GEL 15 GM TUBE PO PRN (07:35)
[2022-08-20] MEDS ORDERED: DEXTROSE 50% 50 ML SYRINGE IV PRN (07:35)
[2022-08-20] MEDS ORDERED: CARBOHYDRATES FOR HYPOGLYCEMIA PO PRN (07:35)
[2022-08-20] MEDS ORDERED: GLUCOSE 10 TAB/TUBE PO PRN (07:35)
[2022-08-20] MEDS ORDERED: GLUCAGON FOR INJ 1 MG VIAL SQ PRN (07:35)
[2022-08-20] MEDS: ICU Protocol for HYPERglycemia SCH ×4 (07:49→21:17)
[2022-08-20] MEDS: THIAMINE HCL 200 MG in SODIUM CHLORIDE 0.9% 50 ML IV SCH (08:10)
[2022-08-20] MEDS: HEPARIN SOD 5,000 UNIT/0.5 ML VIAL SQ SCH ×2 (08:10→21:17)
[2022-08-20] MEDS: DULoxetine HCL 30 MG CAP PO SCH (08:11)
[2022-08-20 08:12] LABS: iSTAT Allen Test Pass; iSTAT Art Bld Gas pCO2 Correct 18 mmHg (35-46); iSTAT Art Bld Gas pH Corrected 7.563 (7.35-7.45); iSTAT Arterial Blood Gas HCO3 16 meg/L (19-24); iSTAT Arterial Blood Gas pCO2 18 mmHg (35-46); iSTAT Arterial Blood Gas pH 7.55 (7.35-7.45); iSTAT Arterial Blood Gas pO2 94 mmHg (80-95); iSTAT Arterial Blood Gas pO2 C 91; iSTAT Carbon Dioxide 16 mmol/L (24-31); iSTAT Hematocrit 25 % (42-52); iSTAT Hemoglobin 8.5 g/dl (14.0-18.0); iSTAT Potassium 3.8 mmol/L (3.3-5.0); iSTAT Site R Radial; iSTAT Sodium 129 mmol/L (135-144)
[2022-08-20 08:24] LABS: BUN Creatinine Ratio 16.8 (10-20); Calcium 8.2 mg/dl (8.5-10.1); Creatinine Clr Calc Pharmacy 50.8 ml/min; Est GFR (African American) 84.9 ml/min; Est GFR (Non-African American) 73.2 ml/min; Magnesium 1.9 mg/dl (1.7-2.4); Phosphorus 2.7 mg/dl (2.5-4.9); Potassium 4.4 mmol/L (3.5-5.1)
[2022-08-20 08:30] LABS: Basophils # (auto) 0.02 K/uL (0-0.2); Basophils % (auto) 0.2 %; Echinocytes 1+; Eosinophils # (auto) 0.04 K/uL (0-0.50); Eosinophils % (auto) 0.4 %; Hemoglobin 9.3 g/dl (14.0-18.0); Immature Granulocytes # (auto) 0.11 K/uL (0.01-0.20); Immature Granulocytes % (auto) 1.2 %; Lymphocytes # (auto) 1.18 K/uL (1.2-3.4); Mean Corpuscular Hemoglobin 30.2 pg (25.0-34.0); Mean Corpuscular Hgb Conc 34.4 g/dL (32.0-36.0); Mean Corpuscular Volume 87.7 fL (80.0-100.0); Mean Platelet Volume 10.2 fL (9.4-12.4); Monocytes # (auto) 0.86 K/uL (0.11-0.59); Monocytes % (auto) 9.5 %; Neutrophils # (auto) 6.85 K/uL (1.40-6.50); Neutrophils % (auto) 75.7 %; Platelet Count 88 K/uL (130-400); Platelet Estimate Decreased (Normal); RDW Coefficient of Variation 15.9 % (11.5-14.5); RDW Standard Deviation 50.1 fL (36.4-46.3); Red Blood Count 3.08 M/uL (4.70-6.10); White Blood Count 9.06 K/ul (4.8-10.8)
[2022-08-20] MEDS ORDERED: D5W AND LACTATED RINGERS 1,000 ML IV SCH (08:45)
--- NOTE | 2022-08-20 08:55 | Critical Care Progress Note ---
Date of Service August 20, 2022 Assessment & Plan (1) Gram-positive bacteremia: (2) Shock: (3) Elevated troponin: (4) Malnutrition: (5) Failure to thrive: (6) JENNI (acute kidney injury): (7) Permanent atrial fibrillation: Plan Reason Critically Ill: 86 YOM resident of [facility], presented to EMD hypotensive and lethargic in setting of reported decrease oral intake over the past 2-3 days. Patient adequatley volume resuscitated with crystalloid and PRBC transfusion. Currently requiring low dose Levophed for hemodynamic support. He has no evidence of acute decompensated HF on exam and has handled the volume received well to this point. Continue with Broad spectrum ABX coverage and continue to support and search for reversible causes of his hypotension Neuro -Bed bound chronically ill, hx of CVA, dementia/depression, hx of SDH (2021) - Continue supportive care, frequent re-orientation and maintain normal sleep and wake cycles - Continue with Duloxetene Cardiac -Shock, Permanent afib, PPM (VVI 40), PVC, HTN, CAD, ICM - Shock undifferentiated at this time- likely multifactorial to include hypovolemic and sepsis - Random Cortisol is 21, TSH 1.95 -A-fib Currently rate controlled He is chronically anticoagulated with Xarelto -currently on hold -History of hypertension - Hold BB while on vasopressors - Hold ANKUR with JENNI Respiratory -GA - no acute needs at this time and no evidence of pulmonary congestion currently - continue with nightly BiPAP GI -Decrease oral intake -Supportive care at this time- nutritional evaluation in morning RENAL/LYTES -JENNI, Hyponatremia, AGAPmetabolic acidosis - JENNI in the setting of shock- see above - Maintain MAP >65 - avoid further nephrotoxic medications - Add Thiamine for decrease enteral intake -BPH with LUTS - Continue sandoval- hold alpha blockers while hypotensive ENDO - - Random Cortisol and TSH normal - Add Dextrose sticks- goal BG <180mg/dl HEME -Anemia- normocytic/normochromic - No evidence of acute blood loss anemia- AOCD vs. nutritional deficiency - Workup initiated by admitting medicine team, s/p 1 unit PRBC - Transfuse for HGB >8.0 or symptomatic --Thrombocytopenia Patient had bouts of thrombocytopenia even in the past Continue to monitor ID -Sepsis with gram-positive bacteremia - PCT 0.57 --> 1.23 - UA - with LE+, NI (-) and 4+ bacteria- - MRSA negative --> cefepime changed to Rocephin on 08/19/2022 - CXR does not show any pulmonary infiltrate - Continue with antibiotic - DNR/DNI --Prophylaxis VTE: Heparin GI: None Lines: Peripheral Diet: Cardiac Plan: In/out: +1.8 L, urine output 1950, +5.8 L since coming to the hospital AB.55/ on room air Labs are pending from today. Change IV fluids to D5 Normosol or D5 LR at 75 mill an hour Continue with Rocephin. Repeat blood cultures today at 3 PM which would be to 48 hours since the initial blood cultures. Patient stable to be downgraded to be out of the ICU. Overall prognosis of the patient is guarded especially given poor appetite Please note the above document was generated using voice recognition software. It may contain grammatical, syntax or spelling errors.Any formal questions or concerns about the content, text or information contained within the body of this dictation should be directly addressed to the provider for clarification. Admission and Anticipated Discharge Date Admission Date: August 18, 2022 Subjective Patient seen and examined at bedside. No acute distress, no adverse events overnight Patient has not been eating well and he was hypoglycemic in the morning Complaining of mild chest tightness. No abdominal pain, no headache, no nausea vomiting Has been off of Levophed since yesterday 6 PM Map at the time of examination was 73 Review of Systems Review of Systems: All systems reviewed & are unremarkable except as noted in Subjective and Unobtainable due to cognitive status Physical Exam Physical Exam: Constitutional: No acute distress HEENT: EOMI, PERRLA Respiratory system: Decreased air entry bilaterally, no wheeze, rhonchi, positive crackles bilateral lower lobes CVS: S1-S2 positive, no murmurs or gallops Abdomen: Soft, nontender, nondistended, positive bowel sounds x4 Extremities: +2 pulses bilaterally radialis/ dorsalis pedis, +2 edema left upper extremity, +1 edema bilateral lower extremity, left-sided hemiplegia Neuro: Awake alert oriented to self Psych: Normal mood and affect G/U: Positive Sandoval Skin: no rashes, warm and dry Lymphatic: no cervical or axillary lymphadenopathy Results & Data Results & Data Vital Signs (Past 12 Hours) Vital Signs Pulse Resp BP Pulse Ox FiO2 08/20/22 06:00 93 H 20 88 L 08/20/22 05:00 98 H 19 100 08/20/22 05:00 127/54 L 08/20/22 04:00 88 20 99 08/20/22 04:00 115/55 L 08/20/22 03:01 130/82 08/20/22 03:01 93 H 16 97 08/20/22 03:00 91 H 23 91 08/20/22 02:00 97 H 19 88 L 08/20/22 02:00 126/72 08/20/22 01:00 89 21 68 L 08/20/22 01:00 126/65 08/20/22 00:00 96 H 21 91 08/20/22 00:00 114/76 08/19/22 23:00 93 H 17 100 08/19/22 23:00 122/66 08/19/22 22:00 102 H 18 91 08/19/22 22:00 135/73 08/19/22 21:57 130/75 08/19/22 21:57 98 H 17 80 L 08/19/22 21:55 93 H 14 77 L 08/19/22 21:55 113/78 08/19/22 21:30 132/58 L 08/19/22 21:16 88 24 08/19/22 21:16 123/103 H 08/19/22 21:00 95 H 25 H 91 08/19/22 21:00 113/65 08/19/22 23:11 82 26 H 95 21 Laboratory Results 08/20/22 07:39 08/20/22 07:39 Coding Level of Care Code 23813 SUB INP/OBS CARE 3/50MIN Diagnoses Gram-positive bacteremia R78.81 Shock R57.9 Elevated troponin R77.8 Malnutrition E46 Failure to thrive JENNI (acute kidney injury) N17.9 Permanent atrial fibrillation I48.21
[2022-08-20] MEDS: MAGNESIUM SULFATE / D5W 1 GM/100 ML BAG IV SCH ×2 (09:38→11:49)
--- NOTE | 2022-08-20 10:56 | Electrocardiogram Report ---
Test Reason : Blood Pressure : / mmHG Vent. Rate : 100 BPM Atrial Rate : 091 BPM P-R Int : 000 ms QRS Dur : 112 ms QT Int : 364 ms P-R-T Axes : 000 -50 126 degrees QTc Int : 469 ms Atrial fibrillation with premature ventricular or aberrantly conducted complexes Left axis deviation Low voltage QRS Inferior infarct (cited on or before 03-OCT-2021) Cannot rule out Anteroseptal infarct (cited on or before 20-APR-2016) Abnormal ECG When compared with ECG of 19-AUG-2022 13:41, QRS duration has increased QT has lengthened Confirmed by Romero Pereyra ([id number]) on 08/20/2022 10:56:17 AM Referred By: [facility] of Confirmed By:Refugio Pereyra
--- NOTE | 2022-08-20 11:25 | Ultrasound Report ---
ULTRASOUND RIGHT UPPER EXTREMITY VENOUS CLINICAL HISTORY: Right forearm pain and swelling. Erythema.. COMPARISON STUDY: No priors.. TECHNIQUE: Portable real-time, grayscale, and color Doppler sonography of the deep veins of the right upper extremity is performed. Compression and augmentation were utilized. FINDINGS: There is no sonographic evidence of deep venous thrombosis identified in the right upper ex tremity. The right internal jugular, axillary, and brachial veins are patent and normally compressibl e. Normal venous waveforms and augmentation are seen within the right subclavian vein. The cephalic a nd basilic veins are clear as imaged. The visualized radial and ulnar veins are patent. Subcutaneous soft tissue edema is noted in the right arm. IMPRESSION: There is no sonographic evidence of deep venous thrombosis identified in the right upper extremity. ACT 112: Negative or not required by law. Electronically signed by: German Lacy M.D. 08/20/2022 11:24 AM
--- NOTE | 2022-08-20 11:58 | Hospitalist Progress Note ---
Date of Service August 20, 2022 Assessment & Plan (1) Gram-positive bacteremia: Plan: 86-year-old man who presents with confusion, weakness, and hypotension. Admitted to the hospital for management of hypotension requiring vasopressor support in the ICU. Sepsis bacteremia/leukocytosis -Patient presented with leukocytosis, lactate 3.0, Pro-Carlos 1.23. Empiric IV cefepime started on admission. Source unknown. -No dysuria on admission. Abdominal exam nontender. CXR negative for acute process/pulmonary infiltrate. No diarrhea. No evidence of cellulitis on skin exam. -Started on IV cefepime empirically. Now discontinued in favor of IV ceftriaxone. -Blood cultures resulted 3/4 gram-positive cocci in chains. Urine culture results pending. -Echocardiogram: Normal LV systolic function, moderate LA dilation, moderate to severe RA dilation, mild AV sclerosis without significant stenosis, mild to moderate AR, mild MR, moderate TR, mild aortic root dilatation. No evidence of endocarditis. -Urine culture: Alpha strep not Enterococcus >100,000. * Currently admitted to ICU. Appreciate recs. * IV ceftriaxone 2 g every 24 hours. * Urine cultures pending. * Trend CBC. Hypotension/shock -Profoundly hypotensive on admission. Received IV NSS bolus x2 L. -Admitted to the ICU for vasopressor support. -Weaned off Levophed at 6 PM on 08/19/2022. MAPs have remained >70 since. * No longer requiring pressor support. Downgraded to PCU. * Continue holding home lisinopril, furosemide, and metoprolol. JENNI Resolved -Creatinine 1.67 on admission. Resolved. * Continue mIVF * Holding home lisinopril, as above. Right forearm edema -New since yesterday. Suspect due to tight IV forearm sleeve patient had been wearing. -Ordered right UE venous Doppler: No sonographic evidence of DVT. Subcutaneous soft tissue edema noted in the right arm. -Patient already on IV ceftriaxone 2 g every 24 hours * Continue to monitor for transformation to cellulitis. Delirium/dementia/failure to thrive -Patient has history of prior stroke. However, CT head on admission negative for acute cerebrovascular process. Suspect this is patient's baseline. -Vitamin B12, folate serum levels within normal limits. -P.o. intake poor. Evaluated by speech therapy 08/20/2022: Recommended pured IDDSI 4 food due to poor oral management of food. No concern at this time for aspiration. -Goals of care discussion had with patient's son, German, who is power of leather goods sales representative. Patient apparently has been unable to perform ADLs independently for a long time, is now pocketing food on speech eval. * IV thiamine, mIVF, for decreased p.o. intake. * Frequent reorientation * Case management consult placed. Family meeting tomorrow tentatively at 11 AM. Depression -Takes duloxetine 30 mg daily at home. Anemia -S/p pRBC x1 unit on admission. * Trend CBC. Transfuse if needed to hemoglobin >8. Atrial fibrillation -Rate controlled at this time. Chronically anticoagulated with Xarelto. * Holding Xarelto Code: DNR/DNI Dispo: PCU FEN/GI: Regular, LR@80ml/hr DVT Prophylaxis: SQ heparin 5000 units every 12 hours PT/OT: Yes Consults: Case management (2) Shock: (3) JENNI (acute kidney injury): (4) Anemia: (5) Failure to thrive: (6) Permanent atrial fibrillation: (7) Stage 3a chronic kidney disease: Admission and Anticipated Discharge Date Admission Date: August 18, 2022 Supervising Physician Co-Signing Physician Notes 86-year-old male with a complex medical history presenting with septic shock, admitted to ICU, placed on empiric antibiotics for sepsis with hypotension requiring pressors. Patient downgraded from critical care today. Distal right upper extremity edematous and erythematous on exam, u/s negative for DVT, monitor closely. Spoke with patient's son German at bedside I personally examined the patient and verified all poon points of history and exam, discussed case, and agree with decision making and plan documented by Dr. Matson. Subjective No acute events overnight. Per nursing, unable to encourage patient to increase p.o. intake in timely manner. Was given D50. This morning, he appears slightly less alert and remains oriented only to self. When asked what year it is, he is unable to answer. When asked who the president is, he replies "Vick Sparks." Review of Systems Review of Systems: All systems reviewed & are unremarkable except as noted in HPI & below Physical Exam Physical Exam: General: No acute distress HEENT: PERRLA. Normal conjunctiva, anicteric sclera. Oropharynx normal. Respiratory: Normal respiratory effort, CTABL. Cardiovascular: RRR without murmurs, gallops, or rubs. No edema. GI: Soft abdomen with normal bowel sounds heard on auscultation. Nontender x4 quadrants Skin: Large, confluent, slightly swollen area of erythema on right forearm, measuring approximately 10 cm x 8 cm. Aforementioned area appears repeat, oozing, although no open bleeding or ulcers seen. Neuro: Alert and oriented x3. Results & Data Results & Data Vital Signs (Past 12 Hours) Vital Signs Pulse Resp BP Pulse Ox O2 Del Method 08/20/22 11:01 124/56 L 08/20/22 11:01 103 H 18 98 Room Air 08/20/22 11:00 93 H 24 99 Room Air 08/20/22 10:01 96 H 16 99 Room Air 08/20/22 10:01 149/118 H 08/20/22 10:00 83 17 98 Room Air 08/20/22 09:12 Room Air 08/20/22 09:01 123/39 L 08/20/22 09:01 94 H 18 100 Room Air 08/20/22 09:00 92 H 20 97 Room Air 08/20/22 08:02 95 H 26 H 100 Room Air 08/20/22 08:02 95/49 L 08/20/22 08:00 88 24 100 Room Air 08/20/22 07:00 109 H 19 93 Room Air 08/20/22 07:00 126/70 08/20/22 09:02 102 H 08/20/22 06:00 93 H 20 88 L 08/20/22 05:00 98 H 19 100 08/20/22 05:00 127/54 L 08/20/22 04:00 88 20 99 08/20/22 04:00 115/55 L 08/20/22 03:01 130/82 08/20/22 03:01 93 H 16 97 08/20/22 03:00 91 H 23 91 08/20/22 02:00 97 H 19 88 L 08/20/22 02:00 126/72 08/20/22 01:00 89 21 68 L 08/20/22 01:00 126/65 08/20/22 00:00 96 H 21 91 08/20/22 00:00 114/76 Resident Activity Tracking Resident Involvement: Resident Care Provided Care Provided: Adult Hospital Medicine
[2022-08-20] MEDS ORDERED: LACTATED RINGER'S 1,000 ML IV SCH (17:30)
[2022-08-20] MEDS: cefTRIAXone SODIUM 2,000 MG in DEXTROSE 5% 50 ML IV SCH (17:36)
[2022-08-21 05:59] LABS: BUN Creatinine Ratio 15.9 (10-20); Creatinine Clr Calc Pharmacy 58.9 ml/min; Est GFR (African American) 94.1 ml/min; Est GFR (Non-African American) 81.2 ml/min; Potassium 4.1 mmol/L (3.5-5.1)
[2022-08-21 06:18] LABS: Hematocrit (blood only) 26.2 % (42.0-52.0); Hemoglobin 9.1 g/dl (14.0-18.0); Mean Corpuscular Hemoglobin 29.9 pg (25.0-34.0); Mean Corpuscular Hgb Conc 34.7 g/dL (32.0-36.0); Mean Corpuscular Volume 86.2 fL (80.0-100.0); Mean Platelet Volume 10.6 fL (9.4-12.4); Platelet Count 93 K/uL (130-400); RDW Coefficient of Variation 15.4 % (11.5-14.5); RDW Standard Deviation 47.7 fL (36.4-46.3); Red Blood Count 3.04 M/uL (4.70-6.10)
--- NOTE | 2022-08-21 07:29 | Hospitalist Progress Note ---
Date of Service August 21, 2022 Assessment & Plan (1) Gram-positive bacteremia: Plan: 86-year-old man who presents with confusion, weakness, and hypotension. Admitted to the hospital for management of hypotension requiring vasopressor support in the ICU. Now weaned off pressor support, stepped down to the PCU. Sepsis bacteremia/leukocytosis -Patient presented 08/18/2022 with leukocytosis, lactate 3.0, Pro-Carlos 1.23. Empiric IV cefepime started on admission. Source unknown. -No dysuria on admission. Abdominal exam nontender. CXR negative for acute process/pulmonary infiltrate. No diarrhea. No evidence of cellulitis on skin exam. -Started on IV cefepime empirically on admission. -Blood cultures resulted 3/4 gram-positive cocci in chains. Urine culture results showed alpha Streptococcus (not Enterococcus) >100,000. -Cefepime discontinued 08/19/2022 in favor of IV ceftriaxone. -Echocardiogram (08/19/2022): Normal LV systolic function, moderate LA dilation, moderate to severe RA dilation, mild AV sclerosis without significant stenosis, mild to moderate AR, mild MR, moderate TR, mild aortic root dilatation. No evidence of endocarditis. -Awaiting further blood culture strain information. Should blood culture results show same species of Streptococcus, will continue to treat. Should blood strep strain differ from the urine culture strain, will enlist infectious disease for recommendations. * Currently admitted to ICU. Appreciate recs. * IV ceftriaxone 2 g every 24 hours. * Trend CBC. Hypotension/shockresolved -Profoundly hypotensive on admission. Received IV NSS bolus x2 L. -Admitted to the ICU for vasopressor support. -Weaned off Levophed at 6 PM on 08/19/2022. MAPs have remained >70 since. * No longer requiring pressor support. Downgraded to PCU. * Still holding home lisinopril, furosemide, and metoprolol. JENNI Resolved -Creatinine 1.67 on admission. Resolved. * Continue mIVF * Holding home lisinopril, as above. Right forearm edema -New since 08/20/2022. Suspect due to tight IV forearm sleeve patient had been wearing. -Ordered right UE venous Doppler: No sonographic evidence of DVT. Subcutaneous soft tissue edema noted in the right arm. -Patient already on IV ceftriaxone 2 g every 24 hours * Continue to monitor . Delirium/dementia/failure to thrive -Patient has history of prior stroke. However, CT head on admission negative for acute cerebrovascular process. Suspect this is patient's baseline. -Vitamin B12, folate serum levels within normal limits. -P.o. intake poor. Evaluated by speech therapy 08/20/2022: Recommended pured IDDSI 4 food due to poor oral management of food. No concern at this time for aspiration. -Goals of care discussion had with patient's sons, German, who is power of food mixer repairer. Patient apparently has been unable to perform ADLs independently for a long time, is now pocketing food on speech eval. * IV thiamine, mIVF, for decreased p.o. intake. * Frequent reorientation * Case management consult placed. Will discuss hospice, SNF options with family. Depression -Takes duloxetine 30 mg daily at home. Anemia -S/p pRBC x1 unit on admission. * Trend CBC. Transfuse if needed to hemoglobin >8. Atrial fibrillation -Rate controlled at this time. Chronically anticoagulated with Xarelto. * Holding Xarelto Code: DNR/DNI Dispo: PCU FEN/GI: Regular, LR@80ml/hr DVT Prophylaxis: SQ heparin 5000 units every 12 hours PT/OT: Yes Consults: Case management (2) Shock: (3) JENNI (acute kidney injury): (4) Anemia: (5) Failure to thrive: (6) Permanent atrial fibrillation: (7) Stage 3a chronic kidney disease: Admission and Anticipated Discharge Date Admission Date: August 18, 2022 Supervising Physician Co-Signing Physician Notes 86-year-old male with a complex medical history presenting with septic shock, admitted to ICU, placed on empiric antibiotics for sepsis with hypotension requiring pressors. Patient downgraded from critical care. Spoke at length with patient's son German and Melvin and son-in-law Sabino today at bedside in regards to goals of care. At present, case management assisting and working to have patient placed at [facility], this is where patient's is currently located. Discussed hospice philosophy with family and focus on quality of life. Patient will likely return to snf and family will make decision when patient should initiate hospice. Unfortunately, Mr. Grande is unable to perform his own hygiene, he is nonambulatory at present, and has been eating and drinking very little without encouragement. Patient's blood pressure has been stable today, he has been alert but remains disoriented. Still awaiting cultures to confirm bacteria and antibiotic regimen, patient remains on ceftriaxone IV. I personally examined the patient and verified all poon points of history and exam, discussed case, and agree with decision making and plan documented by Dr. Matson. Subjective No acute events overnight. Per nursing, patient appeared to be under the impression that there were dogs and cats in the room, despite no animals being present. Upon arrival this morning, he remains oriented to self only. He does report some right forearm pain and fatigue. Otherwise, he is unresponsive to questions. Review of Systems Review of Systems: All systems reviewed & are unremarkable except as noted in HPI & below Physical Exam Physical Exam: General: No acute distress HEENT: PERRLA. Normal conjunctiva, anicteric sclera. Oropharynx normal. Respiratory: Normal respiratory effort, CTABL. Cardiovascular: RRR without murmurs, gallops, or rubs. No edema. GI: Soft abdomen with normal bowel sounds heard on auscultation. Nontender x4 quadrants Skin: Large, confluent, swollen area of erythema on right forearm. Aforementioned area appears to be oozing/weeping, although no open bleeding or ulcers seen. Neuro: Alert and oriented x3. Results & Data Results & Data Vital Signs (Past 12 Hours) Vital Signs Pulse Resp BP Pulse Ox O2 Del Method FiO2 08/21/22 07:11 92 H 08/21/22 06:00 102 H 30 H 08/21/22 06:00 121/75 08/21/22 05:01 91 H 26 H 08/21/22 05:01 117/64 08/21/22 05:00 91 H 28 H 08/21/22 04:00 29 H 08/21/22 04:00 129/84 08/21/22 03:00 91 H 24 08/21/22 03:00 128/76 08/21/22 02:00 90 20 08/21/22 02:00 118/67 08/21/22 01:00 87 25 H 08/21/22 01:00 129/64 08/21/22 00:05 89 20 08/21/22 00:01 105/60 08/21/22 00:01 23 08/21/22 00:00 27 H 08/20/22 23:02 116/55 L 08/20/22 23:02 88 20 08/20/22 23:00 97 H 22 08/20/22 22:00 21 08/20/22 22:00 107/59 L 08/20/22 21:01 111/71 08/20/22 21:01 90 19 73 L 08/20/22 21:00 91 H 24 83 L 08/20/22 20:00 81 22 08/20/22 20:00 113/58 L 08/20/22 23:50 83 24 97 21 08/20/22 20:00 Room Air Resident Activity Tracking Resident Involvement: Resident Care Provided Care Provided: Adult Hospital Medicine
[2022-08-21] MEDS: THIAMINE HCL 200 MG in SODIUM CHLORIDE 0.9% 50 ML IV SCH (08:24)
[2022-08-21] MEDS: HEPARIN SOD 5,000 UNIT/0.5 ML VIAL SQ SCH ×2 (08:25→20:45)
[2022-08-21] MEDS: DULoxetine HCL 30 MG CAP PO SCH (08:25)
[2022-08-21 12:55] LABS: Creatinine Urine Random 124.2 mg/dl
[2022-08-21] MEDS: cefTRIAXone SODIUM 2,000 MG in DEXTROSE 5% 50 ML IV SCH (18:13)
[2022-08-22 06:24] LABS: BUN Creatinine Ratio 17.8 (10-20); Calcium 8.1 mg/dl (8.6-10.3); Creatinine Clr Calc Pharmacy 67.2 ml/min; Est GFR (African American) 98.7 ml/min; Est GFR (Non-African American) 85.2 ml/min; Potassium 3.9 mmol/L (3.5-5.1)
--- NOTE | 2022-08-22 07:04 | Hospitalist Progress Note ---
Date of Service August 22, 2022 Assessment & Plan (1) Gram-positive bacteremia: Plan: 86-year-old man who presents with confusion, weakness, and hypotension. Admitted to the hospital for management of hypotension requiring vasopressor support in the ICU. Now weaned off pressor support, stepped down to the PCU. Sepsis bacteremia/leukocytosis -Patient presented 08/18/2022 with leukocytosis, lactate 3.0, Pro-Carlos 1.23. Empiric IV cefepime started on admission. Source unknown. -No dysuria on admission. Abdominal exam nontender. CXR negative for acute process/pulmonary infiltrate. No diarrhea. No evidence of cellulitis on skin exam. -Started on IV cefepime empirically on admission. -Blood cultures resulted 3/4 gram-positive cocci in chains. Urine culture results showed alpha Streptococcus (not Enterococcus) >100,000. -Cefepime discontinued 08/19/2022 in favor of IV ceftriaxone. -Echocardiogram (08/19/2022): Normal LV systolic function, moderate LA dilation, moderate to severe RA dilation, mild AV sclerosis without significant stenosis, mild to moderate AR, mild MR, moderate TR, mild aortic root dilatation. No evidence of endocarditis. -Consulted infectious disease: Repeat Bcxs from 08/20 are NGTD. If remain negative >48 hours, would complete CTX 2 g IV q24 x total 2 weeks (end date 09/02/22). Would not opt for PO abx in this case. No need for LISA if repeat Bcxs are negative. Compresses/monitoring of RUE recommended * Currently downgraded to PCU. * IV ceftriaxone 2 g every 24 hours. * Trend CBC. Oliguria -Urine output low: 0.07 ml/kg/hr. FeNa: 0.1 suggesting pre-renal etiology. -Patient appears clinically hypovolemic on exam. * Restarted IV LR @80 mls/hr * Continue to monitor Tachycardia -Patient takes metoprolol 25 mg succinate at home; also takes lisinopril, furosemide at home. -Lisinopril, furosemide, and metoprolol held on admission due to shock. -Patient started on Levophed then weaned off after 24+ hours. -HR gradually elevated. Range of 100s to 120s. * Restarted metoprolol succinate 12.5 mg daily. * Continue to monitor Hypotension/shockresolved -Profoundly hypotensive on admission. Received IV NSS bolus x2 L. -Admitted to the ICU for vasopressor support. -Weaned off Levophed at 6 PM on 08/19/2022. MAPs have remained >70 since. * No longer requiring pressor support. Downgraded to PCU. * Still holding home lisinopril, furosemide. JENNI Resolved -Creatinine 1.67 on admission. Resolved. * Continue mIVF * Holding home lisinopril, as above. Right forearm edema--improving -New since 08/20/2022. Suspect due to tight IV forearm sleeve patient had been wearing. -Ordered right UE venous Doppler: No sonographic evidence of DVT. Subcutaneous soft tissue edema noted in the right arm. -Patient already on IV ceftriaxone 2 g every 24 hours * Continue to monitor . Delirium/dementia/failure to thrive -Patient has history of prior stroke. However, CT head on admission negative for acute cerebrovascular process. Suspect this is patient's baseline. -Vitamin B12, folate serum levels within normal limits. -P.o. intake poor. Evaluated by speech therapy 08/20/2022: Recommended pured IDDSI 4 food due to poor oral management of food. No concern at this time for aspiration. -Goals of care discussion had with patient's sons, German, who is power of at [facility]. Patient apparently has been unable to perform ADLs independently for a long time, is now pocketing food on speech eval. * IV thiamine, mIVF, for decreased p.o. intake. * Frequent reorientation * Case management consult placed. Plan to discharge to [facility] for rehab or hospice. Fabian Porter (POA) will decide on which to discharge. Depression -Takes duloxetine 30 mg daily at home. Anemia -S/p pRBC x1 unit on admission. * Trend CBC. Transfuse if needed to hemoglobin >8. Atrial fibrillation -Rate controlled at this time. Chronically anticoagulated with Xarelto. * Holding Xarelto Code: DNR/DNI Dispo: PCU FEN/GI: Regular, LR@80ml/hr DVT Prophylaxis: SQ Lovenox PT/OT: Yes Consults: Case management (2) Shock: (3) JENNI (acute kidney injury): (4) Anemia: (5) Failure to thrive: (6) Permanent atrial fibrillation: (7) Stage 3a chronic kidney disease: Admission and Anticipated Discharge Date Admission Date: August 18, 2022 Supervising Physician Co-Signing Physician Notes 86-year-old male with a complex medical history presenting with septic shock, admitted to ICU, placed on empiric antibiotics for sepsis with hypotension requiring pressors. Consult to infectious disease today for streptococcal bacteremia, suspect strep viridans which is rare for UTI pathogen, recommendations to continue ceftriaxone 2 g IV every 24 for total of 2 weeks (end date 09-02-2022) if blood cultures taken 08/20 remain negative, appreciate input. Concern for low urine output, patient not POA as well as we hoped, will restart gentle fluids, creatinine is improving, monitoring hyponatremia closely. I personally examined the patient and verified all poon points of history and exam, discussed case, and agree with decision making and plan documented by Dr. Matson. La BERG. Patient remains oriented to self only. He does report improvement in his forearm pain. Review of Systems Review of Systems: All systems reviewed & are unremarkable except as noted in HPI & below Physical Exam Physical Exam: General: No acute distress HEENT: PERRLA. Normal conjunctiva, anicteric sclera. Oropharynx normal. Respiratory: Normal respiratory effort, CTABL. Cardiovascular: RRR without murmurs, gallops, or rubs. No edema. GI: Soft abdomen with normal bowel sounds heard on auscultation. Nontender x4 quadrants Skin: Healing erythematous patch on extensor surface of right forearm. Aforementioned area no longer appears to be oozing/weeping. Neuro: Alert to self. Results & Data Results & Data Vital Signs (Past 12 Hours) Vital Signs Pulse Resp BP O2 Del Method 08/22/22 06:00 97 H 20 08/22/22 05:00 101 H 30 H 08/22/22 05:00 128/69 08/22/22 04:00 121 H 18 08/22/22 04:00 134/61 08/22/22 03:01 166/91 H 08/22/22 03:01 40 H 08/22/22 03:00 100 H 20 08/22/22 02:02 124/107 H 08/22/22 02:02 99 H 23 08/22/22 02:00 102 H 25 H 08/22/22 01:02 101 H 20 03/23/23 01:02 118/63 08/22/22 01:00 111 H 22 08/22/22 00:01 120/72 08/22/22 00:01 102 H 22 08/22/22 00:00 105 H 25 H 08/21/22 23:01 92 H 27 H 08/21/22 23:01 88/68 L 08/21/22 23:00 92 H 29 H 08/21/22 22:01 98/72 L 08/21/22 22:01 106 H 08/21/22 22:00 91 H 08/21/22 21:00 98 H 08/21/22 21:00 119/69 08/21/22 20:01 123/66 08/21/22 20:01 116 H 18 08/21/22 20:00 114 H 21 08/21/22 20:00 Room Air Resident Activity Tracking Resident Involvement: Resident Care Provided Care Provided: Adult Hospital Medicine
[2022-08-22] MEDS: THIAMINE HCL 200 MG in SODIUM CHLORIDE 0.9% 50 ML IV SCH (08:44)
[2022-08-22] MEDS: DULoxetine HCL 30 MG CAP PO SCH (08:45)
[2022-08-22] MEDS: METOPROLOL SUCC 25MG EXT REL TAB PO SCH (08:46)
[2022-08-22] MEDS ORDERED: METOPROLOL TARTRATE 25 MG TAB PO SCH (09:00)
[2022-08-22] MEDS ORDERED: PANTOprazole 40 MG TAB PO SCH (09:30)
[2022-08-22] MEDS ORDERED: NEOMYCIN/POLYMYX/BACITR OP OINT 3.5 GM TUBE OP PRN (09:30)
[2022-08-22] MEDS: PANTOprazole 40 MG TAB PO SCH (09:35)
--- NOTE | 2022-08-22 09:49 | Infectious Disease Consult ---
Date of Consultation August 22, 2022 Assessment & Plan (1) Streptococcal bacteremia: #strep bacteremia -presumed viridans strep -possible source unclear but pt with very poor dentition so likely source. pt with numerous skin tears- unclear duration but appear new- and R UE erythema/swelling noted after admission that appears may be due to IV infiltration. Sacral decub on photos does not appear likely source. Strep also present in urine- viridans strep rare pathogen for UTI, and u/a with significant epithelial cells. pt with h/o BPH but sandoval was placed in ED per discussion with primary team. -AICD present -08/18 blood cultures with alpha hemolytic strep, not strep pneumo/Enterococcus in 2 out of 2 sets. 08/18 urine culture with alpha strep, not Enterococcus. 08/20 blood cultures are no growth to date. -pt on CTX -TTE without noted vegetations -WBC improved, pt off pressors #CKD- cr has improved Plan Rec: Repeat Bcxs from 08/20 are NGTD. If remain negative >48 hours, would complete CTX 2 g IV q24 x total 2 weeks (end date 09/02/22). Would not opt for PO abx in this case. No need for LISA if repeat Bcxs are negative. Compresses/monitoring of RUE recommended. Please page with any questions. Deyanira Ren M.D. [facility] Pager [phone] Consultation Information Consultation was provided via telemedicine using two-way real-time interactive telecommunication between the patient and the telemedicine provider. For the duration of the visit, the provider was performing the assessment from a different facility than the patient. This includesuse of bluetooth stethoscope forauscultationperformed by the telepresenter that the telemedicine provider can hear if described in the physical exam. Tractor Crane Engineer contact information: Please call [facility] Call Center . (Phone Number For Physician Use Only) After establishing a telemedicine visit, patient was: Patient was verified with two unique identifiers, Patient/authorized rep acknowledged consent and understanding and Gave permission to continue telehealth session Time Spent with Patient: Initial => 40 min History of Present Illness Attending Physician: Marixa Quevedo, History of Present Illness ID consult requested for management in this 86-year-old male, past medical history of BPH, mitral regurgitation, atrial fibrillation, CKD, CHF, AICD, CVA, left-sided hemiplegia, subdural hematoma after fall, with subsequent decline, resident at skilled nursing, who presented to the ED via EMS on 08/18/2022 due to concern for worsening weakness and confusion as well as hypotension noted by staff. Patient reported feeling weak and tired with low appetite but denied any focal complaints including of pain. He denied dysuria. In the ED, temperature was 36.8, heart rate 74, blood pressure 70/43, respiratory rate 20, O2 saturation 100% on room air. Admission labs significant for WBC 14.03, 82.4% neutrophils, hemoglobin 7.8, platelets 111, creatinine 1.67, procalcitonin 0.57, lactate 4.7, CRP 11.51 UA with greater than 30 WBCs, 1030 RBC, 2030 epithelial cells, 4+ bacteria, negative COVID/flu/RSV PCR. Portable chest x-ray showed no acute process. CT head showed continued decrease in size of hyperdensity within the right frontal region. 08/18 TTE showed mild to moderate AR, MR and TR with no vegetations noted. Due to hypotension, patient was given fluids and then started on Levophed. He was also started on empiric cefepime. Was noted in ED that his blood pressure improved with Levophed. He was able to be weaned off Levophed on 08/19. Cefepime was changed to ceftriaxone when blood cultures positive for strep. Patient is on ceftriaxone 2 g IV every 24. There are photos in EMR from 08/19 which show sacral decub, and various skin tears and shallow wounds on back and extremities without clear evidence of infection. On 08/20, it was noted that patient had right forearm edema suspected to be due to a tight IV forearm sleeve. Right upper extremity Doppler showed no evidence of DVTsubcutaneous soft tissue edema was noted. 08/18 blood cultures with alpha hemolytic strep, not strep pneumo/Enterococcus in 2 out of 2 sets. 08/18 urine culture with alpha strep, not Enterococcus. 08/20 blood cultures are no growth to date. Patient has been afebrile. WBC is improved to 9.4 and creatinine to 0.73. Sandoval was placed in the ED per discussion with primary team. Pt is dnr/dni and pts son is discussing hospice/goals of care. Allergies Allergy/AdvReac Type Severity Reaction Status Date / Time codeine AdvReac Unknown N/V Verified 08/18/22 17:24 Home Medications Medication Instructions Recorded Confirmed Type acetaminophen 325 mg tablet 650 mg PO Q6 PRN Pain 08/18/22 08/18/22 History (Tylenol) allopurinol 300 mg tablet 300 mg PO DAILY 08/18/22 08/18/22 History atorvastatin 20 mg tablet 20 mg PO DAILY 08/18/22 08/18/22 History azelastine 137 mcg (0.1 %) nasal 2 spray intranasal BID 08/18/22 08/18/22 History spray aerosol duloxetine 30 mg capsule,delayed 30 mg PO DAILY 08/18/22 08/18/22 History release dutasteride 0.5 mg capsule 0.5 mg PO DAILY 08/18/22 08/18/22 History fluticasone propionate 50 2 spray intranasal DAILY 08/18/22 08/18/22 History mcg/actuation nasal spray,suspension furosemide 20 mg tablet 20 mg PO QAM 08/18/22 08/18/22 History lisinopril 2.5 mg tablet 2.5 mg PO DAILY 08/18/22 08/18/22 History loratadine 10 mg tablet 10 mg PO HS 08/18/22 08/18/22 History magnesium oxide 400 mg (241.3 mg 400 mg PO DAILY 08/18/22 08/18/22 History magnesium) tablet melatonin 10 mg tablet 10 mg PO HS PRN Sleep 08/18/22 08/18/22 History metoprolol succinate 25 mg 25 mg PO DAILY 08/18/22 08/18/22 History tablet,extended release 24 hr montelukast 10 mg tablet 10 mg PO QPM 08/18/22 08/18/22 History ccygzecl-ixu-dytos acid 0.4 1 tab PO DAILY 08/18/22 08/18/22 History mg-lycopene 300 mcg-lutein 250 mcg tablet (Centrum Silver) neomycin-bacitracn Zn-polymyxn 3.5 1 applic topical DIRECTED PRN 08/18/22 08/18/22 History mg-400 unit-5,000 unit top oint .wounds pkt (Triple Antibiotic) pantoprazole 20 mg tablet,delayed 20 mg PO DAILY 08/18/22 08/18/22 History release potassium chloride 10 mEq 20 meq PO BID 08/18/22 08/18/22 History capsule,extended release rivaroxaban 15 mg tablet (Xarelto) 15 mg PO QPM 08/18/22 08/18/22 History tamsulosin 0.4 mg capsule 0.4 mg PO HS 08/18/22 08/18/22 History Patient History Medical History BPH w urinary obs/LUTS Chronic systolic (congestive) heart failure Complex sleep apnea syndrome Frequent falls History of CVA (cerebrovascular accident) Hypercholesterolemia Hypertension Mitral regurgitation Permanent atrial fibrillation Pseudomonas septicemia Pseudomonas urinary tract infection Right cataract Stage 3a chronic kidney disease Surgical History History of ankle surgery History of dental surgery Status post implantation of automatic cardioverter/defibrillator (AICD) Family History Uncle Diabetes Father Stroke Nephrolithiasis Grandfather (Paternal) Stroke Other Hypertension Myocardial infarction Denies family history of Ovarian cancer Prostate cancer Breast cancer Lung cancer Colorectal cancer Social History Smoking Status: Never smoker Tobacco Type: Cigarettes Second Hand Exposure: No; Do You Dip or Chew Tobacco: No; Hx Alcohol Use: No Hx Substance Use: No Preferred Language: Polish Communication Ability: Effective Visual Impairment: Limited Hearing Ability: Normal Cemetery Vault Installer Required: No Beliefs That Will Affect Care: None marital status: Current Living Situation: Snf Current Living Situation Comment: [place] [facility] [email or web address] current occupational status: retired How many Children do You have: 3 Feels Safe at Home: Yes Childhood Exposure to Second-Hand Smoke: No caffeine: Yes Dental Care, Regularly: Yes Physical Activity Frequency: Does not Exercise Seatbelt Use: always Sunscreen Use: Yes Assistive Devices: Wheelchair Physical Exam Physical Exam: PE: Gen: Awake, alert but not answering most questions- occasionally says yes HEENT: anicteric, mmm, very poor dentition with missing teeth Chest: L chest PPM without erythema CV: unable to appreciate murmur on Eko stethoscope Lungs: poor effort, grossly CTA Abd: Soft, NT/ND Extr: no c/c/e. The tip of several toes are bright pink- appears may be due to dye from red socks as no associated wounds. R medial arm near antecubital fossa is erythematous and swollen, but not particularly warm- ?due to infiltration. R arm with skin tears, L arm with multiple skin tears, and shallow ulcer L elbow oozing some light yellow drainage. Skin: RUE central line, R peripheral IV ok . Unable to examine back due to pt discomfort when turned- numerous dressings along entire back- photos from EMR 08/19 reviewed- shallow skin tears, and sacral breakdown without evidence infection : sandoval with dark yellow clear urine Results & Data Vital Signs (Past 12 Hours) Vital Signs Temp Pulse Pulse Resp BP BP Pulse Ox 08/22/22 09:05 36.5 C 106 H 26 H 126/72 92 08/22/22 09:18 115 H 08/22/22 07:39 08/22/22 06:00 97 H 20 08/22/22 05:00 101 H 30 H 08/22/22 05:00 128/69 08/22/22 04:00 121 H 18 08/22/22 04:00 134/61 08/22/22 03:01 166/91 H 08/22/22 03:01 40 H 08/22/22 03:00 100 H 20 08/22/22 02:02 124/107 H 08/22/22 02:02 99 H 23 08/22/22 02:00 102 H 25 H 08/22/22 01:02 101 H 20 08/22/22 01:02 118/63 08/22/22 01:00 111 H 22 08/22/22 00:01 120/72 08/22/22 00:01 102 H 22 08/22/22 00:00 105 H 25 H 08/21/22 23:01 92 H 27 H 08/21/22 23:01 88/68 L 08/21/22 23:00 92 H 29 H 08/21/22 22:01 98/72 L 08/21/22 22:01 106 H 08/21/22 22:00 91 H O2 Del Method 08/22/22 09:05 Room Air 08/22/22 09:18 08/22/22 07:39 Room Air 08/22/22 06:00 08/22/22 05:00 08/22/22 05:00 08/22/22 04:00 08/22/22 04:00 08/22/22 03:01 08/22/22 03:01 08/22/22 03:00 08/22/22 02:02 08/22/22 02:02 08/22/22 02:00 08/22/22 01:02 08/22/22 01:02 08/22/22 01:00 08/22/22 00:01 08/22/22 00:01 08/22/22 00:00 08/21/22 23:01 08/21/22 23:01 08/21/22 23:00 08/21/22 22:01 08/21/22 22:01 08/21/22 22:00 Laboratory Results 08/18/22 15:12 Aerobic Blood Culture - Preliminary Blood Alpha strep not S.pne/enteroco Anaerobic Blood Culture - Final 08/18/22 15:07 Aerobic Blood Culture - Preliminary Blood Alpha strep not S.pne/enteroco Anaerobic Blood Culture - Preliminary Alpha strep not S.pne/enteroco 08/20/22 15:07 Aerobic Blood Culture - Preliminary Blood No growth in Aerobic bottle after 24 hours. Anaerobic Blood Culture - Final 08/20/22 15:12 Aerobic Blood Culture - Preliminary Blood No growth in Aerobic bottle after 24 hours. Anaerobic Blood Culture - Final 08/22/22 08/21/22 08/21/22 05:34 Unknown Unknown Sodium 130 L Potassium 3.9 Chloride 104 Carbon Dioxide 20 L Anion Gap 6 BUN 13 Creatinine 0.73 Est Cr Clr Drug Dosing 67.2 Est GFR ( Amer) 98.7 Est GFR (Non-Af Amer) 85.2 BUN/Creatinine Ratio 17.8 Glucose 85 Osmolality Calcium 8.1 L Urine Osmolality 533 Ur Random Creatinine 124.2 Ur Random Sodium 21 08/21/22 15:34 Sodium Potassium Chloride Carbon Dioxide Anion Gap BUN Creatinine Est Cr Clr Drug Dosing Est GFR ( Amer) Est GFR (Non-Af Amer) BUN/Creatinine Ratio Glucose Osmolality 268 L Calcium Urine Osmolality Ur Random Creatinine Ur Random Sodium Diagnostic Findings Venous Doppler Study 08/20/22 10:31 ULTRASOUND RIGHT UPPER EXTREMITY VENOUS CLINICAL HISTORY: Right forearm pain and swelling. Erythema.. COMPARISON STUDY: No priors.. TECHNIQUE: Portable real-time, grayscale, and color Doppler sonography of the deep veins of the right upper extremity is performed. Compression and augmentation were utilized. FINDINGS: There is no sonographic evidence of deep venous thrombosis identified in the right upper extremity. The right internal jugular, axillary, and brachial veins are patent and normally compressible. Normal venous waveforms and augmentation are seen within the right subclavian vein. The cephalic and basilic veins are clear as imaged. The visualized radial and ulnar veins are patent. Subcutaneous soft tissue edema is noted in the right arm. IMPRESSION: There is no sonographic evidence of deep venous thrombosis identified in the right upper extremity. ACT 112: Negative or not required by law. Electronically signed by: German Lacy M.D. 08/20/2022 11:24 AM Medications Administered Current Medications Acetaminophen (Acetaminophen 325 Mg Tab) 650 mg PO Q6 PRN PRN Reason: Pain Stop: 09/17/22 20:37 Al Hydrox/Mg Hydrox/Simethicone (Aluminum/Magnesium Susp 30 Ml Udc) 15 ml PO Q4H PRN PRN Reason: Dyspepsia Stop: 09/17/22 20:37 Allopurinol (Allopurinol 300 Mg Tab) 300 mg PO DAILY HERBIE Stop: 09/21/22 09:29 Last Admin: 08/22/22 10:05 Dose: 300 mg Atorvastatin Calcium (Atorvastatin 20 Mg Tab) 20 mg PO DAILY HERBIE Stop: 09/21/22 09:29 Last Admin: 08/22/22 10:05 Dose: 20 mg Azelastine HCl (Azelastine Hcl 0.1% Nasal 200 Sprays/27,400 Mcg Btl) 2 sprays DANIEL BID HERBIE Stop: 09/21/22 09:29 Last Admin: 08/22/22 10:06 Dose: 2 sprays Bacitracin (Bacitracin Oint 15 Gm Tube) 1 appln EXT BID PRN PRN Reason: Wounds Stop: 09/21/22 09:56 Dextrose (Dextrose 50% 50 Ml Syringe) 25 - 50 ml IV UD PRN; Protocol PRN Reason: Hypoglycemia Protocol Stop: 09/19/22 07:34 Last Admin: 08/20/22 07:45 Dose: 25 ml Duloxetine HCl (Duloxetine Hcl 30 Mg Cap) 30 mg PO DAILY HERBIE Stop: 09/18/22 08:59 Last Admin: 08/22/22 08:45 Dose: 30 mg Fluticasone Propionate (Fluticasone Propionate Na Spr 16 Gm Btl) 2 sprays DANIEL DAILY HERBIE Stop: 09/21/22 09:29 Last Admin: 08/22/22 10:05 Dose: 2 sprays Glucagon (Glucagon For Inj 1 Mg Vial) 1 mg SQ UD PRN; Protocol PRN Reason: Hypoglycemia Protocol Stop: 09/19/22 07:34 Glucose (Glucose 10 Tab/Tube) 4 - 8 tab PO UD PRN; Protocol PRN Reason: Hypoglycemia Treatment Stop: 09/19/22 07:34 Glucose (Glucose 40% Gel 15 Gm Tube) 15 - 30 gm PO UD PRN; Protocol PRN Reason: Hypoglycemia Protocol Stop: 09/19/22 07:34 Thiamine HCl 200 mg/ Sodium (Chloride) 52 mls @ 210 mls/hr IV QAM HERBIE Stop: 09/18/22 08:59 Last Infusion: 08/22/22 09:35 Dose: Infused Ceftriaxone Sodium 2,000 mg/ (Dextrose) 70 mls @ 140 mls/hr IV Q24H HERBIE Stop: 09/02/22 17:59 Last Infusion: 08/21/22 18:43 Dose: Infused Loratadine (Loratadine 10 Mg Tab) 10 mg PO HS HERBIE Stop: 09/21/22 20:59 Magnesium Hydroxide (Magnesium Hydroxide Susp 30 Ml Udc) 30 ml PO Q12H PRN PRN Reason: Constipation Stop: 09/17/22 20:37 Melatonin (Melatonin 3 Mg Tab) 9 mg PO HS PRN PRN Reason: Sleep Stop: 09/17/22 20:37 Metoprolol Succinate (Metoprolol Succ 25mg Ext Rel Tab) 12.5 mg PO QAM HERBIE Stop: 09/21/22 08:59 Last Admin: 08/22/22 08:46 Dose: 12.5 mg Miscellaneous (Carbohydrates For Hypoglycemia ) 15 - 30 gm PO UD PRN PRN Reason: Hypoglycemia Protocol Stop: 09/19/22 07:34 Montelukast Sodium (Montelukast Sodium 10 Mg Tablet) 10 mg PO QPM HERBIE Stop: 09/21/22 20:59 Ondansetron HCl (Ondansetron Inj 2 Mg/Ml 2 Ml Vial) 4 mg IV Q6H PRN PRN Reason: Nausea Stop: 09/17/22 20:37 Pantoprazole Sodium (Pantoprazole 40 Mg Tab) 40 mg PO DAILY HERBIE Stop: 09/21/22 08:59 Last Admin: 08/22/22 09:35 Dose: Not Given Polyethylene Glycol (Polyethylene (Miralax) 17 Gm Pack) 17 gm PO DAILY PRN PRN Reason: Constipation Stop: 09/17/22 20:37 Rivaroxaban (Rivaroxaban 15 Mg Tab) 15 mg PO QPM HERBIE Stop: 09/21/22 20:59 Tamsulosin HCl (Tamsulosin Hcl 0.4 Mg Cap) 0.4 mg PO HS HERBIE Stop: 09/21/22 20:59
[2022-08-22] MEDS ORDERED: BACITRACIN OINT 15 GM TUBE EXT PRN (09:57)
[2022-08-22] MEDS: FLUTICASONE PROPIONATE NA SPR 16 GM BTL NAE SCH (10:05)
[2022-08-22] MEDS: allopurinoL 300 MG TAB PO SCH (10:05)
[2022-08-22] MEDS: ATORVASTATIN 20 MG TAB PO SCH (10:05)
[2022-08-22] MEDS: AZELASTINE HCL 0.1% NASAL 200 SPRAYS/27,400 MCG BTL NAE SCH ×2 (10:06→21:14)
[2022-08-22] MEDS ORDERED: LACTATED RINGER'S 1,000 ML IV SCH (16:00)
[2022-08-22] MEDS: cefTRIAXone SODIUM 2,000 MG in DEXTROSE 5% 50 ML IV SCH (18:07)
[2022-08-22] MEDS: MONTELUKAST SODIUM 10 MG TABLET PO SCH (21:14)
[2022-08-22] MEDS: TAMSULOSIN HCL 0.4 MG CAP PO SCH (21:14)
[2022-08-22] MEDS: LORATADINE 10 MG TAB PO SCH (21:14)
[2022-08-22] MEDS: RIVAROXABAN 15 MG TAB PO SCH (21:14)
[2022-08-23 06:35] LABS: BUN Creatinine Ratio 16.4 (10-20); Calcium 8.3 mg/dl (8.6-10.3); Est GFR (African American) 98.7 ml/min; Est GFR (Non-African American) 85.2 ml/min; Potassium 4.1 mmol/L (3.5-5.1)
--- NOTE | 2022-08-23 07:57 | Hospitalist Progress Note ---
Date of Service August 23, 2022 Assessment & Plan (1) Gram-positive bacteremia: Plan: 86-year-old man who presents with confusion, weakness, and hypotension. Admitted to the hospital for management of hypotension requiring vasopressor support in the ICU. Now weaned off pressor support, stepped down to the PCU. Sepsis bacteremia/leukocytosis -Patient presented 08/18/2022 with leukocytosis, lactate 3.0, Pro-Carlos 1.23. Empiric IV cefepime started on admission. Source unknown. -No dysuria on admission. Abdominal exam nontender. CXR negative for acute process/pulmonary infiltrate. No diarrhea. No evidence of cellulitis on skin exam. -Started on IV Cefepime empirically on admission. -Blood cultures resulted 3/4 gram-positive cocci in chains. Urine culture results showed alpha Streptococcus (not Enterococcus) >100,000. -Cefepime discontinued 08/19/2022 in favor of IV ceftriaxone. -Echocardiogram (08/19/2022): Normal LV systolic function, moderate LA dilation, moderate to severe RA dilation, mild AV sclerosis without significant stenosis, mild to moderate AR, mild MR, moderate TR, mild aortic root dilatation. No evidence of endocarditis. -Currently managed in PCU -Consulted infectious disease: Appreciated recommendations -Continue IV Ceftraixone 2g q24h --- Per ID: Repeat Bcxs from 08/20 are NGTD. If remain negative >48 hours, would complete CTX 2 g IV q24 x total 2 weeks (end date 09/02/22). Would not opt for PO abx in this case. No need for LISA if repeat Bcxs are negative. Compresses/monitoring of RUE recommended. Oliguria -Urine output low: 0.07 ml/kg/hr. FeNa: 0.1 suggesting pre-renal etiology. -Patient appears clinically hypovolemic on exam. * Started NSS @80 mls/hr * Continue to monitor Tachycardia -Patient takes metoprolol 25 mg succinate at home; also takes lisinopril, furosemide at home. -Lisinopril, furosemide, and metoprolol held on admission due to shock. -Patient started on Levophed then weaned off after 24+ hours. -HR gradually elevated. Range of 100s to 120s. * Restarted metoprolol succinate 12.5 mg daily. * Continue to monitor --- Continue Metoprolol Hypotension/shock Resolved -Profoundly hypotensive on admission. Received IV NSS bolus x2 L. -Admitted to the ICU for vasopressor support. -Weaned off Levophed at 6 PM on 08/19/2022. MAPs have remained >70 since. * No longer requiring pressor support. Downgraded to PCU. * Still holding home lisinopril, furosemide. JENNI - Resolved -Creatinine 1.67 on admission. Resolved. * Continue mIVF * Holding home lisinopril, as above. Right forearm edema - Unchanged -New since 08/20/2022. Suspect due to tight IV forearm sleeve patient had been wearing. -Ordered right UE venous Doppler: No sonographic evidence of DVT. Subcutaneous soft tissue edema noted in the right arm. -Patient already on IV ceftriaxone 2 g every 24 hours * Continue to monitor --- No evidence of DVT in RUE, edema now bilateral, weeping on the right, suspect a/w dependent edema, encouraged elevation and repositioning of forearms, patient appears clinically volume depleted and is not consuming PO diet, ok to follow closely and continue NSS. Continue to follow closely. Delirium/dementia/failure to thrive -Patient has history of prior stroke. However, CT head on admission negative for acute cerebrovascular process. Suspect this is patient's baseline. -Vitamin B12, folate serum levels within normal limits. -P.o. intake poor. Evaluated by speech therapy 08/20/2022: Recommended pured IDDSI 4 food due to poor oral management of food. No concern at this time for aspiration. -Goals of care discussion had with patient's sons, German, who is power of assistant attorney general. Patient apparently has been unable to perform ADLs independently for a long time, is now pocketing food on speech eval. * IV thiamine, mIVF, for decreased p.o. intake. * Frequent reorientation --- Case management consult placed. Plan to discharge to [facility] for rehab or hospice. Son German (POA) will decide on which to discharge, plan for patient to be with his at [facility]. Patient currently denying attempts to feed. Depression -Takes duloxetine 30 mg daily at home. Anemia -S/p pRBC x1 unit on admission. * Trend CBC. Transfuse if needed to hemoglobin >8. Atrial fibrillation -Rate controlled at this time. Chronically anticoagulated with Xarelto. * Holding Xarelto Code: DNR/DNI Dispo: PCU FEN/GI: Regular, NSS @80ml/hr DVT Prophylaxis: SQ Lovenox PT/OT: Yes Consults: Case management (2) Shock: (3) JENNI (acute kidney injury): (4) Anemia: (5) Failure to thrive: (6) Permanent atrial fibrillation: (7) Stage 3a chronic kidney disease: Admission and Anticipated Discharge Date Admission Date: August 18, 2022 Supervising Physician Co-Signing Physician Notes I personally examined the patient and verified all poon points of history and exam, discussed case, and agree with decision making and plan documented by Dr. Raza Subjective 08/23/22: Patient responds to name and denies pain. Minimal HPI and ROS obtained as patient would quickly fall back to sleep. Nursing notes ongoing UE edema and drainage, not worsened. Nursing has been consistently repositioning patient to aid in management of edema, but note that patient often moves off of pillows used for elevation. Review of Systems Review of Systems: As per HPI Physical Exam Physical Exam: General: No acute distress, responds to name Respiratory: Non-labored, no wheezing/rhonchi/rales, CTAB Cardiovascular: RRR without murmurs, gallops, or rubs. No LE edema edema or JVD. GI: Non-distended, soft, normoactive bowel sounds. No TTP. Skin: Erythematous patch on extensor surface of right forearm a/w edema and weeping, notable edema of left forearm Neuro: Alert to self Results & Data Results & Data Vital Signs (Past 12 Hours) Vital Signs Temp Pulse Resp BP BP Pulse Ox O2 Del Method 08/23/22 06:51 131/92 08/23/22 06:40 89 18 89 L 08/23/22 06:30 94 H 18 92 08/23/22 06:20 94 H 17 90 08/23/22 06:10 90 24 96 08/23/22 06:00 87 19 95 08/23/22 05:53 94 H 21 08/23/22 05:30 82 19 08/23/22 05:20 79 20 08/23/22 05:10 85 19 08/23/22 05:00 88 17 08/23/22 05:00 120/74 08/23/22 04:50 88 20 08/23/22 04:40 82 18 08/23/22 04:30 77 21 08/23/22 04:20 88 27 H 08/23/22 04:10 85 20 08/23/22 04:00 88 18 08/23/22 04:00 121/64 08/23/22 03:50 84 27 H 08/23/22 06:44 92 Room Air 08/23/22 00:00 80 08/23/22 03:40 88 31 H 08/23/22 03:30 84 24 08/23/22 03:20 100 H 29 H 08/23/22 03:10 92 H 18 98 08/23/22 03:00 87 19 97 08/23/22 03:00 119/80 08/23/22 02:50 81 27 H 97 08/23/22 02:40 89 28 H 98 08/23/22 02:30 79 13 96 08/23/22 02:20 93 H 24 08/23/22 02:10 71 29 H 08/23/22 02:00 88 27 H 85 L 08/23/22 02:00 127/78 08/23/22 01:50 90 17 100 08/23/22 01:40 91 H 26 H 91 08/23/22 01:30 97 H 21 100 08/23/22 01:20 87 20 100 08/23/22 01:10 93 H 28 H 95 08/23/22 01:00 83 23 91 08/23/22 01:00 121/75 08/23/22 00:50 93 H 18 92 08/23/22 00:40 92 H 18 84 L 08/23/22 00:30 94 H 25 H 82 L 08/23/22 00:20 84 18 88 L 08/23/22 00:10 89 28 H 100 08/23/22 00:01 125/73 08/23/22 00:01 89 20 100 08/23/22 00:00 90 19 100 08/22/22 23:50 95 H 18 100 08/22/22 23:40 94 H 19 100 08/22/22 23:30 91 H 22 100 08/22/22 23:20 79 28 H 100 08/22/22 23:10 79 19 99 08/22/22 23:00 94 H 20 93 08/22/22 23:00 128/80 08/23/22 03:48 37.2 C 08/22/22 23:28 20 08/22/22 22:50 37.2 C 08/22/22 23:15 Room Air 08/22/22 22:50 89 27 H 93 08/22/22 22:40 91 H 31 H 95 08/22/22 22:30 87 26 H 96 08/22/22 22:20 88 23 95 08/22/22 22:10 92 H 17 98 08/22/22 22:00 80 22 96 08/22/22 22:00 127/70 08/22/22 21:50 89 17 97 08/22/22 21:40 88 20 97 08/22/22 21:30 86 19 97 08/22/22 21:20 79 21 100 08/22/22 21:10 92 H 19 95 08/22/22 21:00 79 30 H 92 08/22/22 21:00 125/70 08/22/22 20:50 91 H 25 H 87 L 08/22/22 20:40 91 H 16 93 08/22/22 20:30 99 H 20 91 08/22/22 20:20 88 19 95 08/22/22 20:10 79 19 90 08/22/22 20:00 94 H 13 92 08/22/22 20:00 123/71 Resident Activity Tracking Resident Involvement: Resident Care Provided Care Provided: Adult Hospital Medicine
[2022-08-23] MEDS: METOPROLOL SUCC 25MG EXT REL TAB PO SCH (08:23)
[2022-08-23] MEDS: AZELASTINE HCL 0.1% NASAL 200 SPRAYS/27,400 MCG BTL NAE SCH ×2 (08:24→21:01)
[2022-08-23] MEDS: PANTOprazole 40 MG TAB PO SCH (08:24)
[2022-08-23] MEDS: allopurinoL 300 MG TAB PO SCH (08:24)
[2022-08-23] MEDS: ATORVASTATIN 20 MG TAB PO SCH (08:24)
[2022-08-23] MEDS: DULoxetine HCL 30 MG CAP PO SCH (08:24)
[2022-08-23] MEDS: FLUTICASONE PROPIONATE NA SPR 16 GM BTL NAE SCH (08:25)
[2022-08-23] MEDS: THIAMINE HCL 200 MG in SODIUM CHLORIDE 0.9% 50 ML IV SCH (08:26)
[2022-08-23] MEDS ORDERED: PANTOprazole 40 MG TAB PO SCH (09:00)
[2022-08-23] MEDS: SODIUM CHLORIDE 0.9% 1000ML 1,000 ML IV SCH (10:45)
[2022-08-23] MEDS: ACETAMINOPHEN 325 MG TAB PO PRN (13:40)
[2022-08-23] MEDS: cefTRIAXone SODIUM 2,000 MG in DEXTROSE 5% 50 ML IV SCH (17:31)
[2022-08-23] MEDS: TAMSULOSIN HCL 0.4 MG CAP PO SCH (21:01)
[2022-08-23] MEDS: RIVAROXABAN 15 MG TAB PO SCH (21:01)
[2022-08-23] MEDS: MONTELUKAST SODIUM 10 MG TABLET PO SCH (21:01)
[2022-08-23] MEDS: LORATADINE 10 MG TAB PO SCH (21:01)
[2022-08-24] MEDS: SODIUM CHLORIDE 0.9% 1000ML 1,000 ML IV SCH ×2 (01:33→16:06)
[2022-08-24] MEDS ORDERED: SODIUM CHLORIDE 0.9% 1000ML 500 ML IV STA (06:54)
--- NOTE | 2022-08-24 07:08 | Hospitalist Progress Note ---
Date of Service August 24, 2022 Assessment & Plan (1) Gram-positive bacteremia: Plan: 86 y/o male w/ PMHx of BPH w/ LUTS, HTN, HLD, CKD3, parox afib on Xarelto, CVA w/ residual L hemiparesia, GA, and chronic systolic CHF s/p single chamber ICD w/ recovered LV function who presented on 08/18/22 w/ confusion and septic shock, improved and off pressor support since 08/19/22. Bacteremia -At admission, patient w/ leukocytosis, lactate 3.0, procal 1.23. Possible urina ry source given culture congruence. TTE w/o evidence of endocarditis. -08/18/22 two sets of blood cultures w/ alpha strep resistant to erythromycin and insensitive to azithromycin. 08/18/22 urine culture with alpha strep. 08/20/22 blood cultures no growth to date. -No dysuria on admission. Abdominal exam nontender. CXR negative for acute process/pulmonary infiltrate. No diarrhea. No evidence of cellulitis on skin exam. -IV cefepime at admission, narrowed to 2g ceftriaxone q24h on 08/19/22. Will need total of 2 wks treatment (end date 09/02/22 per ID). Will likely need US-guided peripheral IV to complete remaining course of ceftriaxone upon discharge to facility. -Blood cultures resulted 3/4 gram-positive cocci in chains. Urine culture results showed alpha Streptococcus (not Enterococcus) >100,000. -Infectious disease consulted, recs appreciated. Delirium/failure to thrive -Patient has history of prior stroke. However, CT head on admission negative for acute cerebrovascular process. Suspect this is patient's baseline. -Vitamin B12, folate serum levels within normal limits. -P.o. intake poor. Evaluated by speech therapy 08/20/2022: Recommended pured IDDSI 4 food due to poor oral management of food. No concern at this time for aspiration. -Goals of care discussion had with patient's sons, German, who is power of state's attorney. Patient apparently has been unable to perform ADLs independently for a long time, is now pocketing food on speech eval. - IV thiamine, mIVF, for decreased p.o. intake. Frequent reorientation - Case management consult placed. Plan to discharge to [facility] for rehab or hospice. Son German (POA) will decide on which to discharge, plan for patient to be with his at [facility]. Patient had poor PO intake earlier in admission - 08/24/22: PO intake and mentation improving. A&O to person, location, and context. Further discussion w/ German ongoing regarding dispo plans. Recommend completion of full course of ceftriaxone. Hypotension - Shock from admission had resolved. 08/24/22 AM had BP of 70s/40s-50s. Questionable inaccurate read of RUE cuff given the RUE swelling. L ankle cuff used which reported consistent 110s systolic over upper 50s diastolic. - Given the admission hx, monitor closely. Provided 1 additional 500mL NSS bolus. Not hypervolemic on exam; additional NSS bolus(es) if needed. - Hold home lisinopril. Home furosemide has been held. Oliguria -Urine output as low as 0.08ml/kg/hr. Continue NSS 80mL/hr. -Check bladder scan to r/o obstruction. Right forearm edema -New since 08/20/2022. Suspect due to tight IV forearm sleeve patient had been wearing vs infiltrated IV. -Ordered right UE venous Doppler: No sonographic evidence of DVT. Subcutaneous soft tissue edema noted in the right arm. Congestive heart failure -EF 60-65, LV function improved after ICD placement -Echocardiogram (08/19/2022): Normal LV systolic function, moderate LA dilation, moderate to severe RA dilation, mild AV sclerosis without significant stenosis, mild to moderate AR, mild MR, moderate TR, mild aortic root dilatation. Tachycardia, resolved JENNI, resolved Depression -Home duloxetine 30 mg daily. Anemia -S/p pRBC x1 unit on admission. Trend CBC. Transfusion threshold Hb 8. Atrial fibrillation -Rate controlled at this time. Chronically anticoagulated with Xarelto. diet/fluids: regular, pureed. NSS 80mL/hr. anticoag: home Xarelto code: DNR/DNI dispo: med tele (2) Shock: (3) JENNI (acute kidney injury): (4) Anemia: (5) Failure to thrive: (6) Permanent atrial fibrillation: (7) Stage 3a chronic kidney disease: (8) Chronic systolic (congestive) heart failure: Admission and Anticipated Discharge Date Admission Date: August 18, 2022 Supervising Physician Co-Signing Physician Notes I personally examined the patient and verified all poon points of history and exa m, discussed case, and agree with decision making and plan documented by Dr. Finley. Subjective Per overnight signout: 5AM BPs thought to not be accurate given difficulties obtaining arm BPs which had infiltrated IV. Arm w/ edema as well. Had been using L ankle BPs earlier yesterday. Patient mentation at baseline, does not appear symptomatic from hypotension. plan: 500mL NSS bolus. Will reassess. 5/10 back pain. Mild dizziness, but better than yesterday. R arm infiltrated IV at admission. had been using L ankle bps. LUE avoiding use because of c ontractures. Review of Systems Review of Systems: Unobtainable due to cognitive status Physical Exam Physical Exam: General: A&O to self, location, and context, not to year. Answering questions appropriately. NAD. Cooperative. HEENT: Atraumatic, normocephalic. Pulm: CTAB. -wheezes, -rales, -rhonchi. No respiratory distress. Cardiac: RRR, -mrg. No LE edema. Abdominal: Nontender, nondistended, soft. Results & Data Results & Data Vital Signs (Past 12 Hours) Vital Signs Temp Pulse Pulse Pulse Resp BP BP 08/24/22 05:54 08/24/22 05:33 36.5 C 88 16 74/58 L 147/69 H 08/23/22 22:01 82 08/24/22 00:03 36.8 C 76 18 08/23/22 23:24 08/23/22 19:52 36.6 C 74 18 08/23/22 19:49 BP BP Pulse Ox O2 Del Method 08/24/22 05:54 78/46 L 08/24/22 05:33 74/58 L 96 Room Air 08/23/22 22:01 08/24/22 00:03 121/69 92 Room Air 08/23/22 23:24 96 Room Air 08/23/22 19:52 148/77 H 90 Room Air 08/23/22 19:49 Room Air Resident Activity Tracking Resident Involvement: Resident Care Provided Care Provided: Adult Hospital Medicine
[2022-08-24 07:21] LABS: Hematocrit (blood only) 28.7 % (42.0-52.0); Hemoglobin 9.4 g/dl (14.0-18.0); Mean Corpuscular Hgb Conc 32.8 g/dL (32.0-36.0); Mean Corpuscular Volume 91.7 fL (80.0-100.0); Mean Platelet Volume 10.2 fL (9.4-12.4); Platelet Count 100 K/uL (130-400); RDW Coefficient of Variation 16.5 % (11.5-14.5); RDW Standard Deviation 53.5 fL (36.4-46.3); Red Blood Count 3.13 M/uL (4.70-6.10); White Blood Count 9.11 K/ul (4.8-10.8)
[2022-08-24 07:31] LABS: Albumin Globulin Ratio 0.9 (0.9-2); Bilirubin,Total 0.7 mg/dl (0.2-1.0); Calcium 7.2 mg/dl (8.6-10.3); Creatinine Clr Calc Pharmacy 90.1 ml/min; Est GFR (African American) 106.3 ml/min; Est GFR (Non-African American) 91.7 ml/min; Globulin 2.2 gm/dl (2.5-4.0); Potassium 3.4 mmol/L (3.5-5.1); Total Protein 4.2 gm/dl (6.0-8.3)
[2022-08-24] MEDS ORDERED: POTASSIUM CHLORIDE PWD 20 MEQ PACK PO ONE (07:48)
[2022-08-24] MEDS: POTASSIUM CHLORIDE / WTR 10 MEQ/100 ML PLCT IV SCH ×3 (08:12→10:39)
[2022-08-24] MEDS: ACETAMINOPHEN 325 MG TAB PO PRN (08:15)
[2022-08-24] MEDS: allopurinoL 300 MG TAB PO SCH (08:16)
[2022-08-24] MEDS: ATORVASTATIN 20 MG TAB PO SCH (08:16)
[2022-08-24] MEDS: DULoxetine HCL 30 MG CAP PO SCH (08:17)
[2022-08-24] MEDS: PANTOprazole 40 MG TAB PO SCH (08:18)
[2022-08-24] MEDS: AZELASTINE HCL 0.1% NASAL 200 SPRAYS/27,400 MCG BTL NAE SCH ×2 (08:18→20:31)
[2022-08-24] MEDS: FLUTICASONE PROPIONATE NA SPR 16 GM BTL NAE SCH (08:18)
[2022-08-24 08:25] LABS: Magnesium 1.7 mg/dl (1.7-2.4)
[2022-08-24] MEDS: THIAMINE HCL 200 MG in SODIUM CHLORIDE 0.9% 50 ML IV SCH (10:15)
[2022-08-24] MEDS: MAGNESIUM SULFATE / D5W 1 GM/100 ML BAG IV SCH ×2 (12:49→15:12)
[2022-08-24] MEDS: cefTRIAXone SODIUM 2,000 MG in DEXTROSE 5% 50 ML IV SCH (18:07)
[2022-08-24] MEDS: RIVAROXABAN 15 MG TAB PO SCH (20:31)
[2022-08-24] MEDS: LORATADINE 10 MG TAB PO SCH (20:32)
[2022-08-24] MEDS: TAMSULOSIN HCL 0.4 MG CAP PO SCH (20:33)
[2022-08-24] MEDS: MONTELUKAST SODIUM 10 MG TABLET PO SCH (21:09)
[2022-08-25] MEDS: SODIUM CHLORIDE 0.9% 1000ML 1,000 ML IV SCH ×2 (04:42→17:12)
--- NOTE | 2022-08-25 07:15 | Hospitalist Progress Note ---
Date of Service August 25, 2022 Assessment & Plan (1) Gram-positive bacteremia: Plan: 86 y/o male w/ PMHx of BPH w/ LUTS, HTN, HLD, CKD3, parox afib on Xarelto, CVA w/ residual L hemiparesia, GA, and chronic systolic CHF s/p single chamber ICD w/ recovered LV function who presented on 08/18/22 w/ confusion and septic shock in context of alpha strep bacteremia due to UTI, Improved and off pressor support since 08/19/22. Downgraded from ICU on 08/20. Alpha Strep Bacteremia / to UTI -At admission, patient w/ leukocytosis, lactate 3.0, procal 1.23. Possible urinary source given culture congruence. TTE w/o evidence of endocarditis. -08/18/22 two sets of blood cultures w/ alpha strep resistant to erythromycin and insensitive to azithromycin. 08/18/22 urine culture with alpha strep. 08/20/22 blood cultures no growth to date. -IV cefepime at admission, narrowed to 2g ceftriaxone q24h on 08/19/22. Will need total of 2 wks treatment (end date 09/02/22 per ID). Will likely need US-guided peripheral IV to complete remaining course of ceftriaxone upon discharge to [facility]. -Infectious disease consulted, recs appreciated Delirium/failure to thrive -Patient has history of prior stroke. However, CT head on admission negative for acute cerebrovascular process. Suspect this is patient's baseline. -Vitamin B12, folate serum levels within normal limits. -P.o. intake poor. Evaluated by speech therapy 08/20/2022: Recommended pured IDDSI 4 food due to poor oral management of food. No concern at this time for aspiration. -Goals of care discussion had with patient's sons, German, who is power of prosecuting attorney. Patient apparently has been unable to perform ADLs independently for a long time, is now pocketing food on speech eval. - IV thiamine, mIVF, for decreased p.o. intake. Frequent reorientation - Case management consult placed. Plan to discharge to [facility] for hospice. Son German (POA) has decided on hospice - discussed on 08/25 Hypotension, resolved - Shock from admission had resolved. 08/24/22 AM had BP of 70s/40s-50s. Questionable inaccurate read of RUE cuff given the RUE swelling. L ankle cuff used which reported consistent 110s systolic over upper 50s diastolic. - Hold home lisinopril. Home furosemide has been held - resume both as able Chronic HFpEF -EF 60-65, LV function improved after ICD placement -Echocardiogram (08/19/2022): Normal LV systolic function, moderate LA dilation, moderate to severe RA dilation, mild AV sclerosis without significant stenosis, mild to moderate AR, mild MR, moderate TR, mild aortic root dilatation. Depression -Home duloxetine 30 mg daily. Anemia -S/p pRBC x1 unit on admission. Trend CBC. Transfusion threshold Hb 8. Atrial fibrillation -Rate controlled at this time. Chronically anticoagulated with Xarelto. diet/fluids: regular, pureed. NSS 80mL/hr. anticoag: home Xarelto code: DNR/DNI dispo: med tele, d/c to [facility], possibly with Hospice, pending CM arranging [facility] and further discussion with son (NGOZI) (2) JENNI (acute kidney injury): (3) Anemia: (4) Failure to thrive: (5) Permanent atrial fibrillation: (6) Stage 3a chronic kidney disease: (7) Chronic systolic (congestive) heart failure: Admission and Anticipated Discharge Date Admission Date: August 18, 2022 Subjective No acute events overnight. Patient reports he has minimal appetite and low drive for fluid intake as well. Overall appears somnolent/fatigued. Minimally conversant. Remainder of history limited due to this although denies pain. Review of Systems Review of Systems: All systems reviewed & are unremarkable except as noted in HPI & below Physical Exam Physical Exam: General: A&Ox3. NAD. Cooperative. HEENT: Atraumatic, normocephalic. Pulm: CTAB A&P. -wheezes, -rales, -rhonchi. Symmetrical chest rise. No increase work of breathing. No respiratory distress. Cardiac: RRR, -mrg. Radial pulses intact and symmetrical. No LE edema. Abdominal: soft, non-tender, non-distended, BS x 4 : sandoval intact, draining clear yellow urine Results & Data Results & Data Vital Signs (Past 12 Hours) Vital Signs Temp Pulse Pulse Resp BP Pulse Ox O2 Del Method 08/25/22 07:08 86 08/25/22 03:13 36.8 C 78 20 140/78 95 Room Air 08/24/22 22:00 77 08/24/22 23:44 36.8 C 87 20 119/60 99 Room Air 08/24/22 22:26 Room Air 08/24/22 19:45 36.8 C 81 20 121/61 95 Room Air Resident Activity Tracking Resident Involvement: Resident Care Provided Care Provided: Adult Hospital Medicine
[2022-08-25 07:28] LABS: Albumin Globulin Ratio 0.9 (0.9-2); Albumin Level 2.2 gm/dl (3.4-5.0); BUN Creatinine Ratio 13.3 (10-20); Bilirubin,Total 0.6 mg/dl (0.2-1.0); Calcium 7.9 mg/dl (8.6-10.3); Creatinine Clr Calc Pharmacy 72.7 ml/min; Est GFR (African American) 97.6 ml/min; Est GFR (Non-African American) 84.2 ml/min; Globulin 2.4 gm/dl (2.5-4.0); Potassium 4.2 mmol/L (3.5-5.1); Total Protein 4.6 gm/dl (6.0-8.3)
[2022-08-25] MEDS: ATORVASTATIN 20 MG TAB PO SCH (09:35)
[2022-08-25] MEDS: DULoxetine HCL 30 MG CAP PO SCH (09:35)
[2022-08-25] MEDS: PANTOprazole 40 MG TAB PO SCH (09:35)
[2022-08-25] MEDS: allopurinoL 300 MG TAB PO SCH (09:35)
[2022-08-25] MEDS: AZELASTINE HCL 0.1% NASAL 200 SPRAYS/27,400 MCG BTL NAE SCH ×2 (09:36→21:18)
[2022-08-25] MEDS: FLUTICASONE PROPIONATE NA SPR 16 GM BTL NAE SCH (09:36)
[2022-08-25] MEDS: THIAMINE HCL 200 MG in SODIUM CHLORIDE 0.9% 50 ML IV SCH (09:44)
[2022-08-25] MEDS: cefTRIAXone SODIUM 2,000 MG in DEXTROSE 5% 50 ML IV SCH (17:47)
[2022-08-25] MEDS: MONTELUKAST SODIUM 10 MG TABLET PO SCH (21:18)
[2022-08-25] MEDS: LORATADINE 10 MG TAB PO SCH (21:18)
[2022-08-25] MEDS: RIVAROXABAN 15 MG TAB PO SCH (21:19)
[2022-08-25] MEDS: TAMSULOSIN HCL 0.4 MG CAP PO SCH (21:20)
[2022-08-26] MEDS: SODIUM CHLORIDE 0.9% 1000ML 1,000 ML IV SCH ×2 (05:34→17:26)
[2022-08-26] MEDS: PANTOprazole 40 MG TAB PO SCH (07:18)
[2022-08-26] MEDS: ATORVASTATIN 20 MG TAB PO SCH (07:18)
[2022-08-26] MEDS: DULoxetine HCL 30 MG CAP PO SCH (07:18)
[2022-08-26] MEDS: allopurinoL 300 MG TAB PO SCH (07:18)
[2022-08-26] MEDS: FLUTICASONE PROPIONATE NA SPR 16 GM BTL NAE SCH (07:19)
[2022-08-26] MEDS: AZELASTINE HCL 0.1% NASAL 200 SPRAYS/27,400 MCG BTL NAE SCH ×2 (07:19→22:24)
[2022-08-26] MEDS: THIAMINE HCL 200 MG in SODIUM CHLORIDE 0.9% 50 ML IV SCH (07:22)
--- NOTE | 2022-08-26 07:37 | Hospitalist Progress Note ---
Date of Service August 26, 2022 Assessment & Plan (1) Gram-positive bacteremia: Plan: 86 y/o male w/ PMHx of BPH w/ LUTS, HTN, HLD, CKD3, parox afib on Xarelto, CVA w/ residual L hemiparesia, GA, and chronic systolic CHF s/p single chamber ICD w/ recovered LV function who presented on 08/18/22 w/ confusion and septic shock in context of alpha strep bacteremia due to UTI, Improved and off pressor support since 08/19/22. Downgraded from ICU on 08/20. Alpha Strep Bacteremia / to UTI -At admission, patient w/ leukocytosis, lactate 3.0, procal 1.23. Possible urinary source given culture congruence. TTE w/o evidence of endocarditis. -08/18/22 two sets of blood cultures w/ alpha strep resistant to erythromycin and insensitive to azithromycin. 08/18/22 urine culture with alpha strep. 08/20/22 blood cultures no growth to date. -IV cefepime at admission, narrowed to 2g ceftriaxone q24h on 08/19/22. Will need total of 2 wks treatment (end date 09/02/22 per ID). Will likely need US-guided peripheral IV to complete remaining course of ceftriaxone upon discharge to [facility]. -Infectious disease consulted, recs appreciated Delirium/failure to thrive -Patient has history of prior stroke. However, CT head on admission negative for acute cerebrovascular process. Suspect this is patient's baseline. -Vitamin B12, folate serum levels within normal limits. -P.o. intake poor. Evaluated by speech therapy 08/20/2022: Recommended pured IDDSI 4 food due to poor oral management of food. No concern at this time for aspiration. -Goals of care discussion had with patient's sons, German, who is power of regulatory attorney. Patient apparently has been unable to perform ADLs independently for a long time, is now pocketing food on speech eval. - IV thiamine, mIVF, for decreased p.o. intake. Frequent reorientation - Case management consult placed. Plan to discharge to [facility] for hospice. Son German (POA) has decided on hospice - discussed on 08/25 looking into placement Hypotension, resolved - Shock from admission had resolved. 08/24/22 AM had BP of 70s/40s-50s. Questionable inaccurate read of RUE cuff given the RUE swelling. L ankle cuff used which reported consistent 110s systolic over upper 50s diastolic. - stop home lisinopril, lasix Chronic HFpEF -EF 60-65, LV function improved after ICD placement -Echocardiogram (08/19/2022): Normal LV systolic function, moderate LA dilation, moderate to severe RA dilation, mild AV sclerosis without significant stenosis, mild to moderate AR, mild MR, moderate TR, mild aortic root dilatation. Depression -Home duloxetine 30 mg daily. Anemia -S/p pRBC x1 unit on admission. Trend CBC. Transfusion threshold Hb 8. Atrial fibrillation -Rate controlled at this time. Chronically anticoagulated with Xarelto. HLD -on atorvastatin, consider hold given hospice Gout -on allopurinol, consider hold given hospice Allergies -on loratadine, flonase, montelukast, azelastine BPH -on flomax GERD -on protonix diet/fluids: regular, pureed. NSS 80mL/hr. anticoag: home Xarelto code: DNR/DNI dispo: med tele, d/c to [facility], possibly with Hospice, pending CM arranging [facility] and further discussion with son (NGOZI) (2) JENNI (acute kidney injury): (3) Anemia: (4) Failure to thrive: (5) Permanent atrial fibrillation: (6) Stage 3a chronic kidney disease: (7) Chronic systolic (congestive) heart failure: Admission and Anticipated Discharge Date Admission Date: August 18, 2022 Supervising Physician Co-Signing Physician Notes I personally examined the patient and verified all poon points of history and exam, discussed case, and agree with decision making with Dr Merida. Eating lunch. No complaints. Veracity of HPI and review of systems difficult to assess. vitals noted nad heent nc at mmm breathing unlabored no accessory muscle use good effort. no rashes pallor or icterus Gram-positive bacteremiaimproving. Overall debility and declinefor SNF, hospiceDr. Fuad confirming with son today, but it appears that is the overall plan. In that respect, stable for center care once bed available. Subjective Patient seen at bedside, calm comfortable cooperative, states he is sleepy and wants to go home. There is concern for delirium while he is in hospital, plan is to discharge on hospice. Attempted to contact son, no response. Physical Exam Constitutional: WD/WN, vitals as above Eyes: PERRL, conjunctivae normal, anicteric sclerae ENMT: external ear and nose normal, oropharynx normal Neck: trachea midline, no thyromegaly Respiratory: normal respiratory effort, lungs clear to auscultation Cardiovascular: RRR, no murmur, no edema Gastrointestinal (Abdomen): Inspection/Auscultation: abdomen normal to inspection Percussion/Palpation: abdomen soft; abdomen nontender Skin: no rashes, warm and dry Results & Data Results & Data Vital Signs (Past 12 Hours) Vital Signs Temp Pulse Pulse Resp BP BP Pulse Ox 08/26/22 07:26 36.6 C 88 22 113/63 96 08/26/22 03:53 79 94 08/26/22 03:34 36.6 C 96 H 20 128/78 90 08/25/22 22:27 83 08/25/22 23:29 36.6 C 94 H 20 123/69 96 08/25/22 20:00 08/25/22 19:41 36.6 C 78 20 151/67 H 98 O2 Del Method 08/26/22 07:26 Room Air 08/26/22 03:53 Room Air 08/26/22 03:34 Room Air 08/25/22 22:27 08/25/22 23:29 Room Air 08/25/22 20:00 Room Air 08/25/22 19:41 Room Air Resident Activity Tracking Resident Involvement: Resident Care Provided Care Provided: Adult Hospital Medicine
[2022-08-26 09:18] LABS: Basophils # (auto) 0.02 K/uL (0-0.2); Basophils % (auto) 0.3 %; Eosinophils # (auto) 0.12 K/uL (0-0.50); Eosinophils % (auto) 1.7 %; Hematocrit (blood only) 31.7 % (42.0-52.0); Hemoglobin 10.1 g/dl (14.0-18.0); Immature Granulocytes # (auto) 0.09 K/uL (0.01-0.20); Immature Granulocytes % (auto) 1.2 %; Lymphocytes % (auto) 17.9 %; Mean Corpuscular Hemoglobin 29.6 pg (25.0-34.0); Mean Corpuscular Hgb Conc 31.9 g/dL (32.0-36.0); Mean Platelet Volume 9.6 fL (9.4-12.4); Monocytes # (auto) 0.68 K/uL (0.11-0.59); Monocytes % (auto) 9.4 %; Neutrophils # (auto) 5.06 K/uL (1.40-6.50); Neutrophils % (auto) 69.5 %; Platelet Count 111 K/uL (130-400); RDW Coefficient of Variation 17.1 % (11.5-14.5); RDW Standard Deviation 55.5 fL (36.4-46.3); Red Blood Count 3.41 M/uL (4.70-6.10); White Blood Count 7.27 K/ul (4.8-10.8)
[2022-08-26 09:38] LABS: Albumin Globulin Ratio 0.9 (0.9-2); Albumin Level 2.3 gm/dl (3.4-5.0); BUN Creatinine Ratio 12.3 (10-20); Bilirubin,Total 0.8 mg/dl (0.2-1.0); Creatinine Clr Calc Pharmacy 75.3 ml/min; Est GFR (African American) 98.7 ml/min; Est GFR (Non-African American) 85.2 ml/min; Globulin 2.7 gm/dl (2.5-4.0); Magnesium 1.8 mg/dl (1.7-2.4); Potassium 4.3 mmol/L (3.5-5.1)
--- NOTE | 2022-08-26 16:59 | Billing Data ---
Date of Service August 26, 2022 Coding Level of Care Code 88880 SUB INP/OBS CARE
[2022-08-26] MEDS: cefTRIAXone SODIUM 2,000 MG in DEXTROSE 5% 50 ML IV SCH (17:26)
[2022-08-26] MEDS: LORATADINE 10 MG TAB PO SCH (22:25)
[2022-08-26] MEDS: RIVAROXABAN 15 MG TAB PO SCH (22:26)
[2022-08-26] MEDS: TAMSULOSIN HCL 0.4 MG CAP PO SCH (22:27)
[2022-08-26] MEDS: MONTELUKAST SODIUM 10 MG TABLET PO SCH (22:27)
[2022-08-27] MEDS: SODIUM CHLORIDE 0.9% 1000ML 1,000 ML IV SCH ×2 (06:20→15:18)
--- NOTE | 2022-08-27 07:15 | Hospitalist Progress Note ---
Date of Service August 27, 2022 Assessment & Plan (1) Gram-positive bacteremia: Plan: 86 y/o male w/ PMHx of BPH w/ LUTS, HTN, HLD, CKD3, parox afib on Xarelto, CVA w/ residual L hemiparesia, GA, and chronic systolic CHF s/p single chamber ICD w/ recovered LV function who presented on 08/18/22 w/ confusion and septic shock in context of alpha strep bacteremia due to UTI, Improved and off pressor support since 08/19/22. Downgraded from ICU on 08/20. Alpha Strep Bacteremia / to UTI -At admission, patient w/ leukocytosis, lactate 3.0, procal 1.23. Possible urinary source given culture congruence. TTE w/o evidence of endocarditis. -08/18/22 two sets of blood cultures w/ alpha strep resistant to erythromycin and insensitive to azithromycin. 08/18/22 urine culture with alpha strep. 08/20/22 blood cultures no growth to date. -IV cefepime at admission, narrowed to 2g ceftriaxone q24h on 08/19/22. Will need total of 2 wks treatment (end date 09/02/22 per ID). Will likely need US-guided peripheral IV to complete remaining course of ceftriaxone upon discharge to [facility]. -Infectious disease consulted, recs appreciated -requested US guided peripheral IV 08/27/22 for outpatient abx upon discharge Delirium/failure to thrive -Patient has history of prior stroke. However, CT head on admission negative for acute cerebrovascular process. Suspect this is patient's baseline. -Vitamin B12, folate serum levels within normal limits. -P.o. intake poor. Evaluated by speech therapy 08/20/2022: Recommended pured IDDSI 4 food due to poor oral management of food. No concern at this time for aspiration. -Goals of care discussion had with patient's sons, German, who is power of tax associate attorney. Patient apparently has been unable to perform ADLs independently for a long time, is now pocketing food on speech eval. - IV thiamine, mIVF, for decreased p.o. intake. Frequent reorientation - Case management consult placed. Plan to discharge to [facility] for hospice. Son German (POA) has decided on hospice - discussed on 08/25 [facility] offers placement tomorrow Hypotension, resolved - Shock from admission had resolved. 08/24/22 AM had BP of 70s/40s-50s. Questionable inaccurate read of RUE cuff given the RUE swelling. L ankle cuff used which reported consistent 110s systolic over upper 50s diastolic. - stop home lisinopril, lasix Chronic HFpEF -EF 60-65, LV function improved after ICD placement -Echocardiogram (08/19/2022): Normal LV systolic function, moderate LA dilation, moderate to severe RA dilation, mild AV sclerosis without significant stenosis, mild to moderate AR, mild MR, moderate TR, mild aortic root dilatation. Depression -Home duloxetine 30 mg daily. Anemia -S/p pRBC x1 unit on admission. Trend CBC. Transfusion threshold Hb 8. Atrial fibrillation -Rate controlled at this time. Chronically anticoagulated with Xarelto. HLD -on atorvastatin, consider hold given hospice Gout -on allopurinol, consider hold given hospice Allergies -on loratadine, flonase, montelukast, azelastine BPH -on flomax GERD -on protonix diet/fluids: regular, pureed. NSS 80mL/hr. anticoag: home Xarelto code: DNR/DNI dispo: med tele, d/c to [facility] with Hospice, pending CM arranging [facility] and further discussion with son (NGOZI) (2) JENNI (acute kidney injury): (3) Anemia: (4) Failure to thrive: (5) Permanent atrial fibrillation: (6) Stage 3a chronic kidney disease: (7) Chronic systolic (congestive) heart failure: Admission and Anticipated Discharge Date Admission Date: August 18, 2022 Supervising Physician Co-Signing Physician Notes I personally examined the patient and verified all poon points of history and exam, discussed case, and agree with decision making with Dr Merida. sleeping, no new issues noted. vitals noted nad heent nc at mmm breathing unlabored no accessory muscle use good effort. no rashes pallor or icterus Gram-positive bacteremiaimproving - continue rocpehin. Overall debility and declinefor SNF, hospice, anticipate soon. Subjective Patient seen at bedside sleeping comfortably. Physical Exam Constitutional: WD/WN, vitals as above Eyes: PERRL, conjunctivae normal, anicteric sclerae ENMT: external ear and nose normal, oropharynx normal Neck: trachea midline, no thyromegaly Respiratory: normal respiratory effort, lungs clear to auscultation Cardiovascular: RRR, no murmur, no edema Gastrointestinal (Abdomen): Inspection/Auscultation: abdomen normal to inspection Percussion/Palpation: abdomen soft; abdomen nontender Skin: no rashes, warm and dry Results & Data Results & Data Vital Signs (Past 12 Hours) Vital Signs Temp Pulse Pulse Resp BP BP BP 08/27/22 00:00 88 08/27/22 03:38 79 129/84 08/27/22 02:57 36.4 C L 87 18 87/54 L 08/26/22 23:04 36.6 C 83 18 94/66 L 08/26/22 20:04 36.8 C 86 20 BP Pulse Ox O2 Del Method 08/27/22 00:00 08/27/22 03:38 08/27/22 02:57 94 Room Air 08/26/22 23:04 97 Room Air 08/26/22 20:04 129/76 94 Room Air Resident Activity Tracking Resident Involvement: Resident Care Provided Care Provided: Adult Hospital Medicine
[2022-08-27 09:05] LABS: Hematocrit (blood only) 26.7 % (42.0-52.0); Hemoglobin 8.9 g/dl (14.0-18.0); Mean Corpuscular Hgb Conc 33.3 g/dL (32.0-36.0); Mean Corpuscular Volume 89.9 fL (80.0-100.0); Platelet Count 108 K/uL (130-400); RDW Coefficient of Variation 16.2 % (11.5-14.5); RDW Standard Deviation 51.9 fL (36.4-46.3); Red Blood Count 2.97 M/uL (4.70-6.10); White Blood Count 7.23 K/ul (4.8-10.8)
[2022-08-27] MEDS: ATORVASTATIN 20 MG TAB PO SCH (09:17)
[2022-08-27] MEDS: DULoxetine HCL 30 MG CAP PO SCH (09:18)
[2022-08-27] MEDS: FLUTICASONE PROPIONATE NA SPR 16 GM BTL NAE SCH (09:18)
[2022-08-27] MEDS: AZELASTINE HCL 0.1% NASAL 200 SPRAYS/27,400 MCG BTL NAE SCH ×2 (09:18→21:21)
[2022-08-27] MEDS: PANTOprazole 40 MG TAB PO SCH (09:18)
[2022-08-27] MEDS: allopurinoL 300 MG TAB PO SCH (09:18)
[2022-08-27] MEDS: THIAMINE HCL 200 MG in SODIUM CHLORIDE 0.9% 50 ML IV SCH (09:22)
[2022-08-27 09:37] LABS: BUN Creatinine Ratio 13.8 (10-20); Bilirubin,Total 0.8 mg/dl (0.2-1.0); Calcium 7.6 mg/dl (8.6-10.3); Creatinine Clr Calc Pharmacy 84.6 ml/min; Est GFR (African American) 103.5 ml/min; Est GFR (Non-African American) 89.3 ml/min; Globulin 2.1 gm/dl (2.5-4.0); Potassium 3.7 mmol/L (3.5-5.1); Total Protein 4.1 gm/dl (6.0-8.3)
[2022-08-27] MEDS: cefTRIAXone SODIUM 2,000 MG in DEXTROSE 5% 50 ML IV SCH (17:48)
--- NOTE | 2022-08-27 18:06 | Billing Data ---
Date of Service August 27, 2022 Coding Level of Care Code 98497 SUB INP/OBS CARE
[2022-08-27] MEDS: MONTELUKAST SODIUM 10 MG TABLET PO SCH (21:21)
[2022-08-27] MEDS: TAMSULOSIN HCL 0.4 MG CAP PO SCH (21:21)
[2022-08-27] MEDS: RIVAROXABAN 15 MG TAB PO SCH (21:22)
[2022-08-27] MEDS: LORATADINE 10 MG TAB PO SCH (21:23)
--- NOTE | 2022-08-28 08:10 | Hospitalist Progress Note ---
Date of Service August 28, 2022 Assessment & Plan (1) Gram-positive bacteremia: Plan: 86 y/o male w/ PMHx of BPH w/ LUTS, HTN, HLD, CKD3, parox afib on Xarelto, CVA w/ residual L hemiparesia, GA, and chronic systolic CHF s/p single chamber ICD w/ recovered LV function who presented on 08/18/22 w/ confusion and septic shock in context of alpha strep bacteremia due to UTI, Improved and off pressor support since 08/19/22. Downgraded from ICU on 08/20. Alpha Strep Bacteremia / to UTI -At admission, patient w/ leukocytosis, lactate 3.0, procal 1.23. Possible urinary source given culture congruence. TTE w/o evidence of endocarditis. -08/18/22 two sets of blood cultures w/ alpha strep resistant to erythromycin and insensitive to azithromycin. 08/18/22 urine culture with alpha strep. 08/20/22 blood cultures no growth to date. -IV cefepime at admission, narrowed to 2g ceftriaxone q24h on 08/19/22. Will need total of 2 wks treatment (end date 09/02/22 per ID). Will likely need US-guided peripheral IV to complete remaining course of ceftriaxone upon discharge to [facility]. -Infectious disease consulted, recs appreciated -requested US guided peripheral IV 08/27/22 for outpatient abx upon discharge Delirium/failure to thrive -Patient has history of prior stroke. However, CT head on admission negative for acute cerebrovascular process. Suspect this is patient's baseline. -Vitamin B12, folate serum levels within normal limits. -P.o. intake poor. Evaluated by speech therapy 08/20/2022: Recommended pured IDDSI 4 food due to poor oral management of food. No concern at this time for aspiration. -Goals of care discussion had with patient's sons, German, who is power of bow maker custom. Patient apparently has been unable to perform ADLs independently for a long time, is now pocketing food on speech eval. - IV thiamine, mIVF, for decreased p.o. intake. Frequent reorientation - Case management consult placed. Plan to discharge to [facility] for hospice. Son German (POA) has decided on hospice - discussed on 08/25 [facility] offers placement tomorrow Hypotension, resolved - Shock from admission had resolved. 08/24/22 AM had BP of 70s/40s-50s. Questionable inaccurate read of RUE cuff given the RUE swelling. L ankle cuff used which reported consistent 110s systolic over upper 50s diastolic. - stop home lisinopril, lasix Chronic HFpEF -EF 60-65, LV function improved after ICD placement -Echocardiogram (08/19/2022): Normal LV systolic function, moderate LA dilation, moderate to severe RA dilation, mild AV sclerosis without significant stenosis, mild to moderate AR, mild MR, moderate TR, mild aortic root dilatation. Depression -Home duloxetine 30 mg daily. Anemia -S/p pRBC x1 unit on admission. Trend CBC. Transfusion threshold Hb 8. Atrial fibrillation -Rate controlled at this time. Chronically anticoagulated with Xarelto. HLD -on atorvastatin, consider hold given hospice Gout -on allopurinol, consider hold given hospice Allergies -on loratadine, flonase, montelukast, azelastine BPH -on flomax GERD -on protonix diet/fluids: regular, pureed. NSS 80mL/hr. anticoag: home Xarelto code: DNR/DNI dispo: med tele, d/c to [facility] with Hospice, pending CM arranging [facility] and further discussion with son (NGOZI) (2) JENNI (acute kidney injury): (3) Anemia: (4) Failure to thrive: (5) Permanent atrial fibrillation: (6) Stage 3a chronic kidney disease: (7) Chronic systolic (congestive) heart failure: Admission and Anticipated Discharge Date Admission Date: August 18, 2022 Results & Data Results & Data Vital Signs (Past 12 Hours) Vital Signs Temp Pulse Pulse Resp BP Pulse Ox O2 Del Method 08/28/22 07:49 36.8 C 78 18 127/71 95 Room Air 08/28/22 07:18 Room Air 08/28/22 07:04 98 H 08/28/22 03:32 37.2 C 90 18 111/68 97 Room Air 08/27/22 21:00 Room Air 08/27/22 22:58 36.6 C 81 18 117/64 98 Room Air
[2022-08-28] MEDS: ATORVASTATIN 20 MG TAB PO SCH (08:22)
[2022-08-28] MEDS: FLUTICASONE PROPIONATE NA SPR 16 GM BTL NAE SCH (08:22)
[2022-08-28] MEDS: AZELASTINE HCL 0.1% NASAL 200 SPRAYS/27,400 MCG BTL NAE SCH (08:22)
[2022-08-28] MEDS: DULoxetine HCL 30 MG CAP PO SCH (08:22)
[2022-08-28] MEDS: allopurinoL 300 MG TAB PO SCH (08:23)
[2022-08-28] MEDS: PANTOprazole 40 MG TAB PO SCH (08:23)
[2022-08-28] MEDS: ACETAMINOPHEN 325 MG TAB PO PRN (08:38)
[2022-08-28] MEDS: THIAMINE HCL 200 MG in SODIUM CHLORIDE 0.9% 50 ML IV SCH (08:47)
--- NOTE | 2022-08-28 11:20 | Discharge Summary ---
Date of Service August 28, 2022 Admission HPI Per Admitting Provider Patient is an 86-year-old male. History obtained from ER physician and son. I did ask the patient himself HPI related questions, but a lot of his answers were extremely short, and he seems to be mildly confusedso while these are included in his HPI, they are of questionable veracity The patient himself seems to have been on a slow but steady decline since his fall and intracranial bleed last September. Since then the son notes that he has not really bounced back. Unfortunately from May forward, his was in the hospital quite a bit and I believe his since the past. During that time, the patient has started to become more and more depressed. He was getting less and less able to take care of himself. His p.o. intake is dropped off quite considerablyits not clear how much if anything he is really taking it at all. About a month or so ago, the son moved the patient from his home to [facility] for extra support, but the son notes that he does not think it has been as much as his father needs. Apparently while the staff will try to get the patient out of bed, if left to his own devices the patient would not get out of bed at all. Patient notes a degree of neck pain, as well as maybe a mild degree of belly pain (although this is mostly noted on physical exam) and denies fevers chills or sweats. Denies dysuria. Denies any focal symptoms. In discussion with the son, he mostly sees a stepwise decline in his father without any real focal symptoms to show for itmore rather that of a global decline and a picture of failure to thrive. He does note a good degree of confusion p robably over the last few weeks, although when asked when the last time his dad was truly coherent, he has a hard time really being able to put a timeline on that given the rest of the decline that started with the intracranial bleeding. Recent notes from Dr. Cisse and Dr. Stover from office visits in June are also quite helpful. Review of systems otherwise negative except for as above Admission Exam Per Admitting Provider General he is awake and alert, somewhat tough to truly gauge his mental status because he is hard of hearing and gives very short answers, but he definitely seems to be "appropriately disoriented" i.e. he will answer questions fairly appropriately, but with the son in the room at the same time, it sounds like the answers are really of questionable veracity, and essentially the patient is "conversationally confused". HEENT normocephalic other than superficial bruisi ng atraumatic. Mucous membranes reasonably moistbut there is thick mucusand the ER physician notes that whenever she first assessed him he was quite dry, I am seeing him after 4 L of isotonic fluid has been given. His neck shows right sided paraspinal hypertonicity and tenderness far more than any bony tenderness, he has a fairly full passive range of motion that is uncomfortable but does not seem to really provoke pain, and he does not have anything that really resembles a Kernig's or Brudzinski's. Cardio is irregularly irregular, and he has about a 10 beat run of consecutive ventricular ectopy shortly after I leave the room, but no true ventricular tachycardia. Lungs are a difficult exam due to his weakness and positioning, but seem to be clear to auscultation bilaterally no rales rhonchi or wheezes (there is a little bit of faint crackling left lower lung, but it sounds to be referred bowel sounds given no correlation with respiration and the overall quality) moderate effort no conversational dyspnea no accessory muscle use, 100% on room air. Abdomen is mildly stiffbut does not really seem to be rigid or guarding, mild right-sided tenderness over elsewhere, no guarding rebound or rigidity no real focal points of tenderness, no bruising across his abdomen, no notable hernias. Extremities are without cyanosis clubbing (trace edema bilaterally), no calf tenderness. Neuro shows left-sided arm and leg contracturesthese are chronic. Skin with diffuse bruising. His left foot is a little bit of a shade of red that seems to fit with his chronic contracted state, and the son does not know if there is anything new or different about his feet. He shows a lot of muscle wasting. Mental status as above. EKG shows A-fib with Q waves V1 through V4, as well as 2 3 and aVF, but is quite consistent with an EKG from about 2 months ago. His CBC is remarkable for a leukocytosis at 14, hemoglobin of 7.8 with an MCV of 90.6 (down from 92.42 months ago) platelets of 111 and a retic index of for all intents and purposes 0. His INR in June was 1.4 he shows a sodium 126, potassium 4.6, chloride 100, CO2 19, BUN 24, creatinine 1.67, calcium 8.5 with a glucose of 165, lactate of 4.7 recheck comes down to 4.4, mag 2.0, bili 0.9 with a direct 2.4. Transaminases and alk phos all normal, CRP 11.5 with a Pro-Carlos of about 0.57, total protein low at 4.6 with an albumin low at 2.3 troponin of 22.7 with a recheck pending. TSH in June was normal around 1. Chest x-ray shows left-sided pacer defibrillator but no consolidations pneumonia or pulmonary edema. Head CT has been ordered by the ER but is pending as of the time of this dictation. His most recent echo about 3 years ago showed an EF of 60-65 with mild AI mild MR moderate TR mild LVH (this was up from a nonischemic cardiomyopathy low of an EF of about 25 to 30% in 2017). Left heart cath in 2016 showed essentially mild diffuse stenoses with the worst being diffuse 40 to 50% proximal LAD stenosis. Further details are well outlined in Dr. Stover notes. Principal Diagnosis Failure to Thrive Discharge Exam Constitutional: WD/WN, vitals as above Eyes: PERRL, conjunctivae normal, anicteric sclerae ENMT:L external ear and nose normal, oropharynx normal Neck: trachea midline, no thyromegaly Respiratory: normal respiratory effort, lungs clear to auscultation Cardiovascular: RRR, no murmur, no edema Gastrointestinal (Abdomen): Inspection/Auscultation: abdomen normal to insp ection Percussion/Palpation: abdomen soft; abdomen nontender Skin: no rashes, warm and dry Discharge Data Allergies Allergy/AdvReac Type Severity Reaction Status Date / Time codeine AdvReac Unknown N/V Verified 08/18/22 17:24 Consultations 08/18/22 16:29 ED Decision to Admit Stat 08/18/22 20:24 Consult Element Winding [employer] Tender Routine Ordered Studies 08/18/22 15:08 CT head/brain wo con Stat 08/20/22 10:31 US venous doppler UE RT Routine 08/27/22 15:23 US guide vascular access Urgent Hospital Course (1) Gram-positive bacteremia: 86 y/o male w/ PMHx of BPH w/ LUTS, HTN, HLD, CKD3, parox afib on Xarelto, CVA w/ residual L hemiparesia, GA, and chronic systolic CHF s/p single chamber ICD w/ recovered LV function who presented on 08/18/22 w/ confusion and septic shock in context of alpha strep bacteremia due to UTI, Improved and off pressor support since 08/19/22. Downgraded from ICU on 08/20. Alpha Strep Bacteremia / to UTI -At admission, patient w/ leukocytosis, lactate 3.0, procal 1.23. Possible urinary source given culture congruence. TTE w/o evidence of endocarditis. -08/18/22 two sets of blood cultures w/ alpha strep resistant to erythromycin and insensitive to azithromycin. 08/18/22 urine culture with alpha strep. 08/20/22 blood cultures no growth to date. -IV cefepime at admission, narrowed to 2g ceftriaxone q24h on 08/19/22. Will need total of 2 wks treatment. US guided peripheral IVplaced 08/27/22 -Infectious disease consulted -upon discharge he will need 5 more days of ceftriaxone 2g q24hr (end date 09/02/22 per ID) Delirium/failure to thrive -Patient has history of prior stroke. However, CT head on admission negative for acute cerebrovascular process. Suspect this is patient's baseline. -Vitamin B12, folate serum levels within normal limits. -P.o. intake poor. Evaluated by speech therapy 08/20/2022: Recommended pured IDDSI 4 food due to poor oral management of food. No concern at this time for aspiration. -Goals of care discussion had with patient's sons, German, who is power of state attorney. Patient apparently has been unable to perform ADLs independently for a long time, is now pocketing food on speech eval. - patient on IV thiamine in hospital, can supplement with PO thiamine in outpatient -Case management consulted. Plan to discharge to [facility] for hospice. Son German (POA) has decided on hospice - discussed on 08/25 Hypotension, resolved - Shock from admission had resolved. 08/24/22 AM had BP of 70s/40s-50s. Questionable inaccurate read of RUE cuff given the RUE swelling. L ankle cuff used which reported consistent 110s systolic over upper 50s diastolic. - stop home lisinopril, lasix, metoprolol Chronic HFpEF -EF 60-65, LV function improved after ICD placement -Echocardiogram (08/19/2022): Normal LV systolic function, moderate LA dilation, moderate to severe RA dilation, mild AV sclerosis without significant stenosis, mild to moderate AR, mild MR, moderate TR, mild aortic root dilatation. Depression -Home duloxetine 30 mg daily. Anemia -S/p pRBC x1 unit on admission. Atrial fibrillation -Rate controlled at this time. Chronically anticoagulated with Xarelto. HLD -on atorvastatin, consider stopping in outpatient Gout -on allopurinol, consider stopping in outpatient Allergies -on loratadine, flonase, montelukast, azelastine BPH -on flomax - stop dutasteride GERD -on protonix (2) JENNI (acute kidney injury): (3) Anemia: (4) Failure to thrive: (5) Permanent atrial fibrillation: (6) Stage 3a chronic kidney disease: (7) Chronic systolic (congestive) heart failure: Total Time Total Time Spent Total Time Spent (In Minutes): <30 Discharge Plan Discharge Items Patient Disposition: Transfer Long Term Fac Reason For Visit: HYPOTENSION, FAILURE TO THRIVE Discharge Diagnosis: bacteremia Activity: Per Instructions section Non-emergency contact: Primary Care Provider Call non-emergency contact if: you have any medication questions, your symptoms worsen and you have a fever Follow-up/Referrals: Meme galeanaSadler [Primary Care Provider] - Diet: Regular Diet Texture: Pureed (blended smooth) Addtl Attending Provider Instructions: 86 y/o male w/ PMHx of BPH w/ LUTS, HTN, HLD, CKD3, parox afib on Xarelto, CVA w/ residual L hemiparesia, GA, and chronic systolic CHF s/p single chamber ICD w/ recovered LV function who presented on 08/18/22 w/ confusion and septic shock in context of alpha strep bacteremia due to UTI, Improved and off pressor support since 08/19/22. Downgraded from ICU on 08/20. Alpha Strep Bacteremia 2/ to UTI -At admission, patient w/ leukocytosis, lactate 3.0, procal 1.23. Possible urinary source given culture congruence. TTE w/o evidence of endocarditis. -08/18/22 two sets of blood cultures w/ alpha strep resistant to erythromycin and insensitive to azithromycin. 08/18/22 urine culture with alpha strep. 08/20/22 blood cultures no growth to date. -IV cefepime at admission, narrowed to 2g ceftriaxone q24h on 08/19/22. Will need total of 2 wks treatment. US guided peripheral IVplaced 08/27/22 -Infectious disease consulted -upon discharge he will need 5 more days of ceftriaxone 2g q24hr (end date 09/02/22 per ID) Delirium/failure to thrive -Patient has history of prior stroke. However, CT head on admission negative for acute cerebrovascular process. Suspect this is patient's baseline. -Vitamin B12, folate serum levels within normal limits. -P.o. intake poor. Evaluated by speech therapy 08/20/2022: Recommended pured IDDSI 4 food due to poor oral management of food. No concern at this time for aspiration. -Goals of care discussion had with patient's sons, German, who is power of state attorney. Patient apparently has been unable to perform ADLs independently for a long time, is now pocketing food on speech eval. - patient on IV thiamine in hospital, can supplement with PO thiamine in outpatient -Case management consulted. Plan to discharge to [facility] for hospice. Son German (POA) has decided on hospice - discussed on 08/25 Hypotension, resolved - Shock from admission had resolved. 08/24/22 AM had BP of 70s/40s-50s. Questionable inaccurate read of RUE cuff given the RUE swelling. L ankle cuff used which reported consistent 110s systolic over upper 50s diastolic. - stop home lisinopril, lasix, metoprolol Chronic HFpEF -EF 60-65, LV function improved after ICD placement -Echocardiogram (08/19/2022): Normal LV systolic function, moderate LA dilation, moderate to severe RA dilation, mild AV sclerosis without significant stenosis, mild to moderate AR, mild MR, moderate TR, mild aortic root dilatation. Depression -Home duloxetine 30 mg daily. Anemia -S/p pRBC x1 unit on admission. Atrial fibrillation -Rate controlled at this time. Chronically anticoagulated with Xarelto. HLD -on atorvastatin, consider stopping in outpatient Gout -on allopurinol, consider stopping in outpatient Allergies -on loratadine, flonase, montelukast, azelastine BPH -on flomax - stop dutasteride GERD -on protonix Pending Studies at Discharge: No Stand-Alone Forms: My [facility] Skilled Items Patient informed of condition?: Yes DNR: Yes Discharge Level of Care: Skilled Communicable Disease: No Discharge Prognosis: Stable Lines: Peripheral IV and US Guided Peripheral IV Urinary Catheter: Yes Medications and DC Order Prescriptions: New thiamine HCl (vitamin B1) 250 mg tablet 250 mg PO DAILY Qty: 30 0RF ceftriaxone 2 gram recon soln 2 g IV DAILY 5 Days Qty: 10 0RF Rx Instructions: Please start first dose on 08/29/22 Continued acetaminophen [Tylenol] 325 mg Tablet 650 mg PO Q6 PRN (Reason: Pain) atorvastatin 20 mg tablet 20 mg PO DAILY pantoprazole 20 mg tablet,delayed release (DR/EC) 20 mg PO DAILY tamsulosin 0.4 mg capsule 0.4 mg PO HS montelukast 10 mg tablet 10 mg PO QPM allopurinol 300 mg tablet 300 mg PO DAILY azelastine 137 mcg (0.1 %) aerosol,spray 2 spray INTRANASAL BID fluticasone propionate 50 mcg/actuation [place],Suspension 2 spray INTRANASAL DAILY Rx Instructions: administer into each nostril loratadine 10 mg Tablet 10 mg PO HS duloxetine 30 mg capsule,delayed release(DR/EC) 30 mg PO DAILY Triple Antibiotic 3.5-400-5,000 [id number] Ointment In Packet 1 applic TOPICAL DIRECTED PRN (Reason: .wounds) Xarelto 15 mg tablet 15 mg PO QPM melatonin 10 mg Tablet 10 mg PO HS PRN (Reason: Sleep) Discontinued potassium chloride 10 mEq capsule, extended release 20 meq PO BID magnesium oxide 400 mg (241.3 mg magnesium) tablet 400 mg PO DAILY furosemide 20 mg tablet 20 mg PO QAM metoprolol succinate 25 mg tablet extended release 24 hr 25 mg PO DAILY lisinopril 2.5 mg tablet 2.5 mg PO DAILY dutasteride 0.5 mg capsule 0.5 mg PO DAILY Centrum Silver 0.4 mg-300 mcg- 250 mcg Tablet 1 tab PO DAILY Discharge Orders: Discharge Order (Routine); Ordered 08/28/22 Ordered By: Jemma Merida Admission Data Admit Date/Time: 08/18/22 18:31 Attending Provider: Amrit Baptiste Admit Provider: Amrit Baptiste Primary Care Provider: Meme galeanaSadler Other Providers: [facility] ; Amrit Baptiste ; Tiago Garcia Other Interventions: Discharge Summary Assessment (RN) Last Done: 08/28/22 12:27 Supervising Physician Co-Signing Physician Notes I personally examined the patient and verified all poon points of history and exam, discussed case, and agree with decision making with Dr Merida. sleeping, no new issues noted. vitals noted nad heent nc at mmm breathing unlabored no accessory muscle use good effort. no rashes pallor or icterus Gram-positive bacteremiaimproving - finish rocephin. otherwise SNF/hospice Resident Activity Tracking Resident Involvement: Resident Care Provided Care Provided: Adult Hospital Medicine
[2022-08-28] MEDS: cefTRIAXone SODIUM 2,000 MG in DEXTROSE 5% 50 ML IV SCH (12:00)
--- NOTE | 2022-08-28 17:29 | Billing Data ---
Date of Service August 28, 2022 Coding Level of Care Code 35452 IN/OBS DISCH 30 MIN/LESS
== END 2022-08-28 13:00 | DRG 871 ==
LOC: ED 14:28 → 1E 18:31 → SUATTDRO 18:31 → 1E 20:25 → 2W 08-23 15:54